=== PATIENT | male | born 1955 | race Caucasian/White ===

== ENCOUNTER 2017-06-29 09:24 | Emergency (ER) | payer OTHER ==
[2017-06-29] MEDS ORDERED: Sodium Chloride 0.9% 2.5 ML Syringe FLUSH PRN (09:31)
[2017-06-29] MEDS ORDERED: Sodium Chloride 0.9% 10 ML Syringe FLUSH PRN (09:31)
--- NOTE | 2017-06-29 09:52 | EDM.PDOC ---
ED HPI GENERAL MEDICAL PROBLEM - General Chief Complaint: Neuro Symptoms/Deficits Stated Complaint: UNABLE TO MOVE LEG Time Seen by Provider: 06/29/17 09:29 - History of Present Illness INITIAL COMMENTS - FREE TEXT/NARRATIVE: HISTORY AND PHYSICAL: History of present illness: Patient is a 62-year-old male who has a history of hypertension for which he does not take medication and presents from work after having a clearly normal morning complaining of pain to his left leg originating from his buttock going down his thigh and weakness and tingling to that same area. He initially presented to triage saying that he was unable to move his leg and when I queried him he says that he does feel weak and tingling in that leg but there is severe pain with any movement of the leg and he feels that he is weak because of the pain. He has no history of back problems or falls and has had no bowel or bladder disturbances. He has no upper extremity complaints and no chest pain shortness of breath headache neck pain or discrete back pain. He says that the discomfort in his leg hurts if he tries to flex at his hips. Patient denies any trauma to his leg. The patient says he does not follow with a family physician. Initially when he presented because of his complaint a stroke code was called and the appropriate workup was ordered. On my evaluation it appears to be more lumbar spine and lower extremity related we will evaluate. When asked the patient why he is not taking the medication he was prescribed for blood pressure management and he says that it cost over $200 and he is not going to pay for that Review of systems: As per history of present illness and below otherwise all systems reviewed and negative. Past medical history: As per history of present illness and as reviewed below otherwise noncontributory. Surgical history: As per history of present illness and as reviewed below otherwise noncontributory. Social history: No reported history of drug or alcohol abuse. Family history: As per history of present illness and as reviewed below otherwise noncontributory. Physical exam: Gen.: Well-developed well-nourished man speaking clearly and easily in the ED and in no distress. His blood pressure on triage was noted at 220/101 HEENT: Atraumatic, normocephalic, pupils reactive, negative for conjunctival pallor or scleral icterus, mucous membranes moist, throat clear, neck supple, nontender, trachea midline. When the patient sticks out his tongue there is a slight deviation to the left but there is no loss of the nasal labial fold and no issues with his smile. He has no cervical adenopathy and no midline step- offs in his defects of the cervical spine Lungs: Clear to auscultation, breath sounds equal bilaterally, chest nontender. Heart: S1S2, regular rate and rhythm no overt murmurs Abdomen: Soft, nondistended, nontender. Negative for masses or hepatosplenomegaly. Negative for costovertebral tenderness. Pelvis: Stable nontender. Genitourinary: Deferred. Rectal: She has normal perianal sensation, push squeeze and tone. Extremities: Atraumatic, negative for cords or calf pain. Neurovascular unremarkable. The patient has no palpable bony deformities throughout the extremities nor any soft tissue swelling more specifically at the left lower extremity. Dorsalis pedis pulse is very strong on the left Neuro: Awake, alert, oriented. Cranial nerves II through XII unremarkable. . Dorsi and plantar flexion is 4/5 bilaterally inclusive of the great toe the patient is able to invert and fever at his feet. He says there is discomfort when he dorsi and plantar flexes in his left foot. The patient exhibits discomfort whenever I try to move his left leg and he is able to lift his leg at the knee albeit with a motor of only 3/5. All other extremities including the left upper extremity has intact motor 5/5. The patient also states that he has decreased simple touch and pressure in the left leg from the thigh down to the foot. It does not include the proximal thigh. Patellar reflexes are brisk +2 /4 laterally Back: There are no midline step-offs tenderness or defects of the thoracic or lumbar spine no posterior pelvis pain. When he sat the patient up to do this exam he said he had severe pain in his left leg. Diagnostics: NIHSS, CT scan of the head and lumbar spine chest x-ray EKG CBC CMP INR troponin TSH [employer]A [employer]: IV O2 monitor labetalol aspirin if CT is negative, Solu-Medrol, Toradol Norflex NIHSS=2, he had some keys issues and weakness in the left leg, on my evaluation that weakness has been improving. As the patient has a very localized symptomatology to the left leg and involves pain and improving stroke scale he is not a candidate for TPA. Sounds more like a lumbar spine issue rather than a central brain issue. Patient is now able to lift his left leg at the hip and the knee and still says that there is pain there but it is improved after the Toradol. I discussed with him and his at bedside all testing results--- occluding the CT scan of the lumbar spine which indicated mild to moderate osteophytes throughout the lumbar spine and a small diffuse disc bulge at L4-L5 resulting in mild spinal canal stenosis--- and my concerns about his blood pressure. He currently denies any headache neck pain and blurred vision chest pain or shortness of breath and only complains of the pain in his left thigh. We will get him an expedited follow-up appointment in the clinic and I will discuss with either that physician or the hospitalist starting blood pressure medication and I will also give him Norflex or home, tramadol as needed, prednisone taper and recommended that he buy a walker just for stability until the pain improves. Patient states that he would like a cane and we will see if we have one here to dispense. I did discuss and offer admission to this patient and he absolutely defers at this time. Blood pressure management was discussed with our hospitalist Dr. Vance and 1150 and he recommends lisinopril 10 mg by mouth daily and hydrochlorothiazide 12.5 mg every day. Impression: Left leg pain, small herniated disc at L4-L5, hypertension not controlled/ noncompliant Definitive disposition and diagnosis as appropriate pending reevaluation and review of above. - Related Data Allergies Allergy/AdvReac Type Severity Reaction Status Date / Time amoxicillin Allergy Cannot Verified 06/29/17 11:18 Remember coconut oil Allergy Cannot Verified 06/29/17 11:18 Remember Home Meds: Home Meds . [No Known Home Meds] 06/29/17 [History] ED ROS GENERAL - Review of Systems Review Of Systems: ROS reveals no pertinent complaints other than HPI. ED EXAM, GENERAL - Physical Exam Exam: See Below (See dictation) Course - Vital Signs Last Recorded V/S: Last Vital Signs Temp 36.4 C 06/29/17 09:25 Pulse 65 06/29/17 11:17 Resp 18 06/29/17 11:17 BP 220/104 H 06/29/17 11:17 Pulse Ox 98 06/29/17 11:17 - Orders/Labs/Meds Orders: Active Orders 24 hr Category Date Time Status Blood Glucose Check, Bedside [RC] ONETIME Care 06/29/17 09:31 Active Cardiac Monitoring [RC] . DIRECTED Care 06/29/17 09:31 Active EKG Documentation Completion [RC] STAT Care 06/29/17 09:31 Active Oxygen Therapy, ED [RC] ASDIRECTED Care 06/29/17 09:31 Active Pulse Oximetry [RC] ASDIRECTED Care 06/29/17 09:31 Active Sodium Chloride 0.9% [Saline Flush] Med 06/29/17 09:31 Active 10 ml FLUSH ASDIRECTED PRN Sodium Chloride 0.9% [Saline Flush] Med 06/29/17 09:31 Active 2.5 ml FLUSH ASDIRECTED PRN Saline Lock Insert [OM.PC] Stat Oth 06/29/17 09:31 Ordered Medication Orders Sodium Chloride (Saline Flush) 10 ml FLUSH ASDIRECTED PRN PRN Reason: Keep Vein Open Sodium Chloride (Saline Flush) 2.5 ml FLUSH ASDIRECTED PRN PRN Reason: Keep Vein Open Labs: Laboratory Tests 06/29/17 06/29/17 06/29/17 Range/Units 09:52 09:52 09:52 WBC 8.56 (4.0-11.0) K/uL RBC 4.82 (4.50-5.90) M/uL Hgb 14.7 (13.0-17.0) g/dL Hct 42.6 (38.0-50.0) % MCV 88.4 (80.0-98.0) fL MCH 30.5 (27.0-32.0) pg MCHC 34.5 (31.0-37.0) g/dL RDW Std Deviation 45.4 (28.0-62.0) fl RDW Coeff of [place]ub[place] 14 (11.0-15.0) % Plt Count 197 (150-400) K/uL MPV 10.10 (7.40-12.00) fL Neut % (Auto) 56.9 (48.0-80.0) % Lymph % (Auto) 27.0 (16.0-40.0) % [place] % (Auto) 10.9 (0.0-15.0) % Eos % (Auto) 4.6 (0.0-7.0) % Baso % (Auto) 0.6 (0.0-1.5) % Neut # (Auto) 4.9 (1.4-5.7) K/uL Lymph # (Auto) 2.3 (0.6-2.4) K/uL [place] # (Auto) 0.9 H (0.0-0.8) K/uL Eos # (Auto) 0.4 (0.0-0.7) K/uL Baso # (Auto) 0.1 (0.0-0.1) K/uL Nucleated RBC % 0.0 /100WBC Nucleated RBCs # 0 K/uL INR 1.00 (0.86-1.11) Sodium 139 (136-146) mmol/L Potassium 4.2 (3.5-5.1) mmol/L Chloride 107 (98-110) mmol/L Carbon Dioxide 24 (21-31) mmol/L BUN 24 H (6.0-23.0) mg/dL Creatinine 1.3 (0.6-1.5) mg/dL Est Cr Clr Drug Dosing 66.32 mL/min Estimated GFR (MDRD) 56.3 ml/min Glucose 105 (60-110) mg/dL Calcium 9.7 (8.8-10.8) mg/dL Total Bilirubin 0.4 (0.1-1.5) mg/dL AST 19 (5-40) IU/L ALT 27 (8-54) IU/L Alkaline Phosphatase 117 (40-150) Troponin I (0.0-0.29) NG/ML Total Protein 7.2 (6.0-8.0) g/dL Albumin 3.9 (3.4-4.8) g/dL Globulin 3.3 (2.0-3.5) g/dL Albumin/Globulin Ratio 1.2 L (1.3-2.8) TSH 3rd Generation 2.74 (0.47-5.0) uIU/mL Urine Color Urine Appearance Urine pH (5.0-8.0) Ur Specific [place] (1.001-1.035) Urine Protein (NEGATIVE) mg/dL Urine Glucose (UA) (NEGATIVE) mg/dL Urine Ketones (NEGATIVE) mg/dL Urine Occult Blood (NEGATIVE) Urine Nitrite (NEGATIVE) Urine Bilirubin (NEGATIVE) Urine Urobilinogen (<2.0) EU/dL Ur Leukocyte Esterase (NEGATIVE) Urine RBC (0-2/HPF) Urine WBC (0-5/HPF) Ur Epithelial Cells (NONE-FEW) Urine Bacteria (NEGATIVE) Urine Mucus (NONE-MOD) 06/29/17 06/29/17 Range/Units 09:52 11:15 WBC (4.0-11.0) K/uL RBC (4.50-5.90) M/uL Hgb (13.0-17.0) g/dL Hct (38.0-50.0) % MCV (80.0-98.0) fL MCH (27.0-32.0) pg MCHC (31.0-37.0) g/dL RDW Std Deviation (28.0-62.0) fl RDW Coeff of Nubia (11.0-15.0) % Plt Count (150-400) K/uL MPV (7.40-12.00) fL Neut % (Auto) (48.0-80.0) % Lymph % (Auto) (16.0-40.0) % [place] % (Auto) (0.0-15.0) % Eos % (Auto) (0.0-7.0) % Baso % (Auto) (0.0-1.5) % Neut # (Auto) (1.4-5.7) K/uL Lymph # (Auto) (0.6-2.4) K/uL [place] # (Auto) (0.0-0.8) K/uL Eos # (Auto) (0.0-0.7) K/uL Baso # (Auto) (0.0-0.1) K/uL Nucleated RBC % /100WBC Nucleated RBCs # K/uL INR (0.86-1.11) Sodium (136-146) mmol/L Potassium (3.5-5.1) mmol/L Chloride (98-110) mmol/L Carbon Dioxide (21-31) mmol/L BUN (6.0-23.0) mg/dL Creatinine (0.6-1.5) mg/dL Est Cr Clr Drug Dosing mL/min Estimated GFR (MDRD) ml/min Glucose (60-110) mg/dL Calcium (8.8-10.8) mg/dL Total Bilirubin (0.1-1.5) mg/dL AST (5-40) IU/L ALT (8-54) IU/L Alkaline Phosphatase (40-150) Troponin I < 0.10 (0.0-0.29) NG/ML Total Protein (6.0-8.0) g/dL Albumin (3.4-4.8) g/dL Globulin (2.0-3.5) g/dL Albumin/Globulin Ratio (1.3-2.8) TSH 3rd Generation (0.47-5.0) uIU/mL Urine Color YELLOW Urine Appearance CLEAR Urine pH 5.5 (5.0-8.0) Ur Specific [place] 1.010 (1.001-1.035) Urine Protein NEGATIVE (NEGATIVE) mg/dL Urine Glucose (UA) NEGATIVE (NEGATIVE) mg/dL Urine Ketones NEGATIVE (NEGATIVE) mg/dL Urine Occult Blood NEGATIVE (NEGATIVE) Urine Nitrite NEGATIVE (NEGATIVE) Urine Bilirubin NEGATIVE (NEGATIVE) Urine Urobilinogen 0.2 (<2.0) EU/dL Ur Leukocyte Esterase NEGATIVE (NEGATIVE) Urine RBC NONE SEEN (0-2/HPF) Urine WBC 0-1 (0-5/HPF) Ur Epithelial Cells RARE (NONE-FEW) Urine Bacteria RARE (NEGATIVE) Urine Mucus LIGHT (NONE-MOD) Meds: Medications Generic Name Dose Route Start Last Admin Trade Name Brenda PRN Reason Stop Dose Admin Sodium Chloride 10 ml 06/29/17 09:31 Saline Flush FLUSH ASDIRECTED PRN Keep Vein Open Sodium Chloride 2.5 ml 06/29/17 09:31 Saline Flush FLUSH ASDIRECTED PRN Keep Vein Open Discontinued Medications Generic Name Dose Route Start Last Admin Trade Name Freq PRN Reason Stop Dose Admin Hydrocodone Bitart/Acetaminophen 1 tab 06/29/17 11:40 [place] 325-7.5 Mg PO 06/29/17 11:41 ONETIME ONE Ketorolac Tromethamine 30 mg 06/29/17 09:58 06/29/17 10:07 Toradol IVPUSH 06/29/17 09:59 30 mg ONETIME ONE Administration Labetalol HCl 20 mg 06/29/17 09:55 Normodyne IVPUSH 06/29/17 09:56 .BOLUS ONE Protocol Labetalol HCl Confirm 06/29/17 10:00 06/29/17 10:27 Normodyne Administered 06/29/17 10:01 Not Given Dose 100 mg .ROUTE .STK-MED ONE Methylprednisolone Sodium Succinate 125 mg 06/29/17 09:58 06/29/17 10:07 Solu-Medrol IVPUSH 06/29/17 09:59 125 mg ONETIME ONE Administration Orphenadrine Citrate 60 mg 06/29/17 11:41 06/29/17 11:47 Norflex IM 06/29/17 11:42 60 mg ONETIME ONE Administration Departure - Departure Time of Disposition: 11:53 Disposition: Home, Self-Care 01 Condition: Good Clinical Impression: Lumbar disc disease, Left leg pain Hypertension Qualifiers: Hypertension type: unspecified secondary hypertension Qualified Code(s): I15.9 - Secondary hypertension, unspecified; I15 - Secondary hypertension - Discharge Information Referrals: PCP,None [Primary Care Provider] - Forms: ED Department Discharge Additional Instructions: The following information is given to patients seen in the emergency department who are being discharged to home. This information is to outline your options for follow-up care. We provide all patients seen in our emergency department with a follow-up referral. The need for follow-up, as well as the timing and circumstances, are variable depending upon the specifics of your emergency department visit. If you don't have a primary care physician on staff, we will provide you with a referral. We always advise you to contact your personal physician following an emergency department visit to inform them of the circumstance of the visit and for follow-up with them and/or the need for any referrals to a consulting specialist. The emergency department will also refer you to a specialist when appropriate. This referral assures that you have the opportunity for followup care with a specialist. All of these measure are taken in an effort to provide you with optimal care, which includes your followup. Under all circumstances we always encourage you to contact your private physician who remains a resource for coordinating your care. When calling for followup care, please make the office aware that this follow-up is from your recent emergency room visit. If for any reason you are refused follow-up, please contact the [facility] emergency department at and ask to speak to the emergency department charge nurse. [facility] Primary care- Internal Medicine and Family [address] [address] Please take all medications as prescribed, your blood pressure medication, the prednisone and use the pain medication as needed. Please also use the muscle relaxer as needed but do not take the muscle relaxer or the pain medication and drive a car or go to work. Please keep your appointment is scheduled from the ER below and return to ER as needed and as discussed. - My Orders Last 24 Hours: My Active Orders 06/29/17 09:31 Blood Glucose Check, Bedside [RC] ONETIME Cardiac Monitoring [RC] . DIRECTED EKG Documentation Completion [RC] STAT Oxygen Therapy, ED [RC] ASDIRECTED Pulse Oximetry [RC] ASDIRECTED Sodium Chloride 0.9% [Saline Flush] 10 ml FLUSH ASDIRECTED PRN Sodium Chloride 0.9% [Saline Flush] 2.5 ml FLUSH ASDIRECTED PRN Saline Lock Insert [OM.PC] Stat - Assessment/Plan Last 24 Hours: My Active Orders 06/29/17 09:31 Blood Glucose Check, Bedside [RC] ONETIME Cardiac Monitoring [RC] . DIRECTED EKG Documentation Completion [RC] STAT Oxygen Therapy, ED [RC] ASDIRECTED Pulse Oximetry [RC] ASDIRECTED Sodium Chloride 0.9% [Saline Flush] 10 ml FLUSH ASDIRECTED PRN Sodium Chloride 0.9% [Saline Flush] 2.5 ml FLUSH ASDIRECTED PRN Saline Lock Insert [OM.PC] Stat
[2017-06-29] MEDS ORDERED: Labetalol 5 MG/ML 5 ML Syringe IVPUSH ONE (09:55)
[2017-06-29] MEDS ORDERED: Ketorolac 30 MG/ML SDV IVPUSH ONE (09:58)
[2017-06-29] MEDS ORDERED: methylPREDNISolone Sodium Succinate 125 MG/2 ML SDV IVPUSH ONE (09:58)
--- NOTE | 2017-06-29 09:58 | CT ---
EXAMINATION: Non contrast CT head. Coronal and sagittal reformats. HISTORY: Pain FINDINGS: No evidence of intra or extra axial hemorrhage, mass, midline shift, hydrocephalus or edema. There i s encephalomalacia within the right frontal lobe anteriorly. No hypoattenuation changes in the major vascular territories to suggest acute infarct. No abnormal intracranial calcifications are detected. Mild vascular calcifications noted. Paranasal sinuses and mastoid air cells are well aerated without substantial findings. The orbits an d globes appear symmetric. Pituitary fossa appears unremarkable. Calvarium is intact. No evidence of skull fracture. IMPRESSION: 1. No acute intracranial findings. 2. 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 The above findings were called to the ER at 9:55 AM.
[2017-06-29] MEDS ORDERED: Labetalol 100 MG/20 ML MDV ONE (10:00)
--- NOTE | 2017-06-29 11:18 | CT ---
EXAMINATION: CT lumbar spine HISTORY: Pain COMPARISON: None TECHNIQUE: Axial CT images obtained through the lumbar spine without contrast. Coronal and sagittal r econstructions obtained. FINDINGS: The lumbar spinal alignment is normal. The vertebral body heights and disc spaces appear gr ossly maintained. Mild to moderate marginal osteophytes are noted throughout the lumbar spine. There is likely a small diffuse disc bulge at L4-L5 resulting in mild spinal canal stenosis. Otherwise no s ignificant osseous spinal canal stenosis. Bridging osteophytes are noted within the right SI joint. B one mineralization is normal. Facet hypertrophy is noted within the lumbar spine most prominent at L5 -S1. There is moderate right perirenal stranding. IMPRESSION: 1. Moderate degenerative changes noted within the lumbar spine without acute findings. 2. Moderate right perirenal stranding. Correlate with focal pain.
--- NOTE | 2017-06-29 11:25 | CR ---
EXAMINATION: Portable chest radiograph. HISTORY: Shortness of breath. FINDINGS: The trachea is midline. The cardiomediastinal silhouette is within normal limits. No pulmonary infilt rates, effusions or pneumothorax. Osseous structures appear unremarkable. IMPRESSION: No acute cardiopulmonary process.
[2017-06-29] MEDS ORDERED: Acetaminophen/HYDROcodone 325-7.5 MG Tab PO ONE (11:40)
[2017-06-29 14:36] VITALS: BP 214/100
== END 2017-06-29 12:20 | disposition home or self-care (01) ==
LOC: MW.ED 09:24
DX: M51.26 Other intervertebral disc displacement, lumbar region (principal); M79.605 Pain in left leg; I15.9 Secondary hypertension, unspecified; Z88.1 Allergy status to other antibiotic agents
CPT/HCPCS: 36415; 70450; 71010; 72131; 80053; 81001; 84443; 84484; 85025; 85610; 93005; 96372; 96374; 96375; 99285; J1885; J2360; J2930; 99283

== ENCOUNTER 2017-08-17 05:21 | Observation (INO) | payer MEDICAID, OTHER ==
[2017-08-17] MEDS ORDERED: Labetalol 5 MG/ML 5 ML Syringe IVPUSH ONE (05:38)
--- NOTE | 2017-08-17 05:40 | EDM.PDOC ---
ED HPI GENERAL MEDICAL PROBLEM - General Chief Complaint: Neuro Symptoms/Deficits Stated Complaint: POSSIBLE STROKE Time Seen by Provider: 08/17/17 05:34 - History of Present Illness INITIAL COMMENTS - FREE TEXT/NARRATIVE: HISTORY AND PHYSICAL: History of present illness: Patient 62-year-old white male history of hypertension presents with a concern of paresthesia to his left face and left upper extremity he states he noticed some numbness to his left face and left arm approximately 20 minutes prior to arrival he denies any weakness denies any difficulty with speech upon arrival he states the left arm numbness is nearly resolved he still is some slight numbness in his left face. He denies chest pain shortness of breath trauma or other concern Review of systems: As per history of present illness and below otherwise all systems reviewed and negative. Past medical history: As per history of present illness and as reviewed below otherwise noncontributory. Surgical history: As per history of present illness and as reviewed below otherwise noncontributory. Social history: No reported history of drug or alcohol abuse. Family history: As per history of present illness and as reviewed below otherwise noncontributory. Physical exam: HEENT: Atraumatic, normocephalic, pupils reactive, negative for conjunctival pallor or scleral icterus, mucous membranes moist, throat clear, neck supple, nontender, trachea midline. Lungs: Clear to auscultation, breath sounds equal bilaterally, chest nontender. Heart: S1S2, regular, negative for clicks, rubs, or JVD. Abdomen: Soft, nondistended, nontender. Negative for masses or hepatosplenomegaly. Negative for costovertebral tenderness. Pelvis: Stable nontender. Genitourinary: Deferred. Rectal: Deferred. Extremities: Atraumatic, negative for cords or calf pain. Neurovascular unremarkable. Neuro: Awake, alert, oriented. Cranial nerves II through XII unremarkable. Cerebellum unremarkable. Patient is noted to have some decreased sensation to light touch to his left face Diagnostics: CBC CMP PT/INR chest x-ray EKG CT brain Therapeutics: IV O2 monitor labetalol 20 mg IV Impression: #1 paresthesia left face #2 hypertension Definitive disposition and diagnosis as appropriate pending reevaluation and review of above. - Related Data Allergies Allergy/AdvReac Type Severity Reaction Status Date / Time amoxicillin Allergy Hives Verified 08/17/17 05:33 coconut oil Allergy Cannot Verified 08/17/17 05:33 Remember Home Meds: Home Meds . [No Known Home Meds] 06/29/17 [History] Past Medical History Cardiovascular History: Reports: Hypertension, DC Other Cardiovascular History: DC 2013 Respiratory History: Reports: Other (See Below) Other Respiratory History: chronic smoker Social & Family History - Family History Family Medical History: Noncontributory - Tobacco Use Smoking Status *Q: Current Every Day Smoker Years of Tobacco use: 30 Packs/Tins Daily: 1 - Caffeine Use Caffeine Use: Reports: Coffee - Recreational Drug Use Recreational Drug Use: No ED ROS GENERAL - Review of Systems Review Of Systems: ROS reveals no pertinent complaints other than HPI. ED EXAM, GENERAL - Physical Exam Exam: See Below (See dictation) Course - Vital Signs Last Recorded V/S: Last Vital Signs Temp 36.3 C 08/17/17 05:25 Pulse 64 08/17/17 06:30 Resp 16 08/17/17 06:30 BP 188/111 H 08/17/17 06:30 Pulse Ox 96 08/17/17 06:30 - Orders/Labs/Meds Orders: Active Orders 24 hr Category Date Time Status Patient Status [ADT] Stat ADT 08/17/17 06:41 Ordered EKG Documentation Completion [RC] STAT Care 08/17/17 05:43 Active Chest 1V Frontal [CR] Stat Exams 08/17/17 05:43 Taken Head wo Cont [CT] Stat Exams 08/17/17 05:45 Taken Labs: Laboratory Tests 08/17/17 08/17/17 08/17/17 Range/Units 05:51 05:51 05:51 WBC 8.94 (4.0-11.0) K/uL RBC 4.96 (4.50-5.90) M/uL Hgb 15.3 (13.0-17.0) g/dL Hct 44.3 (38.0-50.0) % MCV 89.3 (80.0-98.0) fL MCH 30.8 (27.0-32.0) pg MCHC 34.5 (31.0-37.0) g/dL RDW Std Deviation 44.5 (28.0-62.0) fl RDW Coeff of Nubia 14 (11.0-15.0) % Plt Count 194 (150-400) K/uL MPV 10.60 (7.40-12.00) fL Neut % (Auto) 59.6 (48.0-80.0) % Lymph % (Auto) 26.2 (16.0-40.0) % [place] % (Auto) 7.5 (0.0-15.0) % Eos % (Auto) 5.6 (0.0-7.0) % Baso % (Auto) 1.1 (0.0-1.5) % Neut # (Auto) 5.3 (1.4-5.7) K/uL Lymph # (Auto) 2.3 (0.6-2.4) K/uL [place] # (Auto) 0.7 (0.0-0.8) K/uL Eos # (Auto) 0.5 (0.0-0.7) K/uL Baso # (Auto) 0.1 (0.0-0.1) K/uL Nucleated RBC % 0.0 /100WBC Nucleated RBCs # 0 K/uL INR 1.03 (0.86-1.11) Sodium 141 (136-146) mmol/L Potassium 4.0 (3.5-5.1) mmol/L Chloride 107 (98-110) mmol/L Carbon Dioxide 25 (21-31) mmol/L BUN 21 (6.0-23.0) mg/dL Creatinine 1.2 (0.6-1.5) mg/dL Est Cr Clr Drug Dosing TNP Estimated GFR (MDRD) > 60.0 ml/min Glucose 120 H (60-110) mg/dL Calcium 9.4 (8.8-10.8) mg/dL Total Bilirubin 0.5 (0.1-1.5) mg/dL AST 18 (5-40) IU/L ALT 28 (8-54) IU/L Alkaline Phosphatase 103 (40-150) CK-MB (CK-2) 1.1 (0-6.6) ng/ml Troponin I < 0.10 (0.0-0.29) NG/ML Total Protein 7.0 (6.0-8.0) g/dL Albumin 3.8 (3.4-4.8) g/dL Globulin 3.2 (2.0-3.5) g/dL Albumin/Globulin Ratio 1.2 L (1.3-2.8) Meds: Medications Discontinued Medications Generic Name Dose Route Start Last Admin Trade Name Brenda PRN Reason Stop Dose Admin Labetalol HCl 20 mg 08/17/17 05:38 08/17/17 05:45 Normodyne IVPUSH 08/17/17 05:39 20 mg .BOLUS ONE Administration Protocol Labetalol HCl Confirm 08/17/17 05:45 08/17/17 06:13 Normodyne Administered 08/17/17 05:46 Not Given Dose 100 mg .ROUTE .STK-MED ONE Departure - Departure Time of Disposition: 06:43 Disposition: Admitted As Inpatient 68 Condition: Good Clinical Impression: TIA (transient ischemic attack) Hypertension Qualifiers: Hypertension type: unspecified secondary hypertension Qualified Code(s): I15.9 - Secondary hypertension, unspecified - Discharge Information Referrals: PCP,None [Primary Care Provider] - Forms: ED Department Discharge - My Orders Last 24 Hours: My Active Orders 08/17/17 05:43 EKG Documentation Completion [RC] STAT Chest 1V Frontal [CR] Stat 08/17/17 05:45 Head wo Cont [CT] Stat 08/17/17 06:41 Patient Status [ADT] Stat - Assessment/Plan Last 24 Hours: My Active Orders 08/17/17 05:43 EKG Documentation Completion [RC] STAT Chest 1V Frontal [CR] Stat 08/17/17 05:45 Head wo Cont [CT] Stat 08/17/17 06:41 Patient Status [ADT] Stat
[2017-08-17] MEDS ORDERED: Labetalol 100 MG/20 ML MDV ONE (05:45)
[2017-08-17 06:21] LABS: CHLORIDE,CL 107 mmol/L (98-110); SODIUM,NA 141 mmol/L (136-146)
[2017-08-17] MEDS ORDERED: Enoxaparin 40 MG/0.4 ML Syringe SUBCUT SCH (09:15)
[2017-08-17] MEDS ORDERED: atorvaSTATin 40 MG Tab PO SCH (10:15)
[2017-08-17] MEDS ORDERED: Aspirin 325 MG Tab.EC PO SCH (10:15)
[2017-08-17 12:56] VITALS: BP 202/93
--- NOTE | 2017-08-17 14:15 | PCM.HP ---
H&P History of Present Illness - General Date of Service: 08/17/17 Admit Problem/Dx: Admission Diagnosis/Problem Admission Diagnosis/Problem TIA, Transient ischemic attack Source of Information: Patient, Family History Limitations: Reports: No Limitations - History of Present Illness Initial Comments - Free Text/Narative: 8-year-old male with a history of hypertension, previous myocardial infarction that presented to the emergency department earlier this morning with a chief complaint of facial numbness. As per the patient, he experienced numbness and tingling on the left side of his face and reported slurred speech from his earlier this morning around 5 AM while they're in their car. As this is concerning, this patient then came to the emergency department. Patient was found to have a elevated blood pressure and paresthesias on the left side of his face as well and was considered to have a TIA and was admitted for further workup. At that time, CT of the brain was ordered which was unremarkable. Talking to the patient this morning, he continued to complain of left-sided numbness without any extremity involvement. He denied any numbness tingling or pain elsewhere in his body. He denied any head trauma. - Related Data Allergies/Adverse Reactions: Allergies Allergy/AdvReac Type Severity Reaction Status Date / Time amoxicillin Allergy Hives Verified 08/17/17 05:33 coconut oil Allergy Cannot Verified 08/17/17 05:33 Remember Home Medications: Home Meds . [No Known Home Meds] 06/29/17 [History] Past Medical History - Past Health History Medical/Surgical History: Denies Medical/Surgical History Cardiovascular History: Reports: Hypertension, CO Other Cardiovascular History: CO 2013 Respiratory History: Reports: Other (See Below) Other Respiratory History: chronic smoker - Infectious Disease History Infectious Disease History: Reports: Chicken Pox, Measles, Mumps Social & Family History - Family History Family Medical History: Noncontributory - Tobacco Use Smoking Status *Q: Current Every Day Smoker Years of Tobacco use: 30 Packs/Tins Daily: 0.5 Second Hand Smoke Exposure: No - Caffeine Use Caffeine Use: Reports: Coffee Caffeine Use Comment: 3 cups daily - Recreational Drug Use Recreational Drug Use: No H&P Review of Systems - Review of Systems: Review Of Systems: See Below General: Reports: Weakness HEENT: Denies: Vertigo, Visual Changes Pulmonary: Denies: Shortness of Breath, Wheezing, Cough Cardiovascular: Denies: Chest Pain, Palpitations Gastrointestinal: Denies: Abdominal Pain Genitourinary: Denies: Dysuria, Incontinence Musculoskeletal: Denies: Neck Pain, Shoulder Pain, Arm Pain Skin: Reports: No Symptoms Neurological: Reports: Other (See history of present illness) Hematologic/Lymphatic: Reports: No Symptoms Immunologic: Reports: No Symptoms Exam - Exam Exam: See Below - Vital Signs Vital Signs: Last Vital Signs Temp 36.6 C 08/17/17 12:00 Pulse 68 08/17/17 12:00 Resp 16 08/17/17 12:00 BP 202/93 H 08/17/17 12:00 Pulse Ox 96 08/17/17 12:00 Weight: 81.8 kg - Exam Quality Assessment: No: Supplemental Oxygen General: Alert, Oriented, Cooperative HEENT: Conjunctiva Clear, EOMI Neck: Supple, Trachea Midline. No: Carotid Bruit, JVD Lungs: Clear to Auscultation, Normal Respiratory Effort Cardiovascular: Regular Rate, Regular Rhythm GI/Abdominal Exam: Normal Bowel Sounds, Soft, Non-Tender Back Exam: Normal Inspection, Full Range of Motion Extremities: Normal Inspection, Normal Capillary Refill Skin: Warm, Intact Neurological: Other (Decreased sensation to touch over the left cheek. Possible deviation of protruding tongue to the left side. Rest of the cranial nerves appear to be unremarkable. Strength in all 4 extremities appears to be 5 out of 5 for flexion and extension against resistance. Traffic Police Officer strength is also 5 out of 5.) Psychiatric: Alert, Normal Mood - Patient Data Result Diagrams: 08/17/17 05:51 08/17/17 05:51 *Q Meaningful Use (ADM) - VTE *Q VTE Criteria *Q: - Stroke *Q Stroke Criteria *Q: - AMI *Q AMI Criteria *Q: Problem List Initiated/Reviewed/Updated: Yes Orders Last 24hrs: Active Orders 24 hr Category Date Time Status Patient Status [ADT] Routine ADT 08/17/17 06:41 Active Neuro Check [RC] Q4HR Care 08/17/17 08:00 Active Notify Provider Consults [RC] ASDIRECTED Care 08/17/17 11:42 Active Oxygen Therapy [RC] PRN Care 08/17/17 09:08 Active Swallow Screen [Nursing Bedside Swallow Screen] [RC] Care 08/17/17 10:03 Active ASDIRECTED Telemetry Monitoring [Cardiac Monitoring] [RC] . Care 08/17/17 11:41 Active DIRECTED Up With Assistance [RC] ASDIRECTED Care 08/17/17 09:09 Active VTE/DVT Education [RC] PER UNIT ROUTINE Care 08/17/17 09:08 Active VTE/DVT Education [RC] PER UNIT ROUTINE Care 08/17/17 09:09 Active Vital Signs [RC] Q4H Care 08/17/17 09:08 Active Consult to Physician [CONS] Routine Cons 08/17/17 11:41 Active PT Evaluation and Treatment [CONS] Routine Cons 08/17/17 09:09 Active Regular Diet [DIET] Diet 08/17/17 Lunch Active Ang Head w wo Cont [MR] Routine Exams 08/17/17 09:59 Ordered Ang Neck w wo Cont [MR] Routine Exams 08/17/17 09:59 Ordered Brain w wo Cont [MR] Routine Exams 08/17/17 09:59 Ordered Echo Comp wo Cont [US] Urgent Exams 08/17/17 10:02 Ordered BASIC METABOLIC PANEL,BMP [CHEM] AM Lab 08/18/17 05:11 Ordered CBC W/O DIFF,HEMOGRAM [HEME] AM Lab 08/18/17 05:11 Ordered Aspirin [Ecotrin] Med 08/17/17 10:15 Active 325 mg PO DAILY Enoxaparin [Lovenox] Med 08/17/17 09:15 Active 40 mg SUBCUT DAILY atorvaSTATin [Lipitor] Med 08/17/17 10:15 Active 80 mg PO DAILY Resuscitation Status Routine Resus Stat 08/17/17 09:08 Ordered Medication Orders Aspirin (Ecotrin) 325 mg PO DAILY [facility] Last Admin: 08/17/17 11:40 Dose: 325 mg Atorvastatin Calcium (Lipitor) 80 mg PO DAILY [facility] Last Admin: 08/17/17 11:40 Dose: 80 mg Enoxaparin Sodium (Lovenox) 40 mg SUBCUT DAILY [facility] Last Admin: 08/17/17 09:37 Dose: 40 mg Assessment/Plan Comment:: Assessment #1. New onset numbness and tingling over the left side of the face #2. Slurred speech that has resolved #3. Hypertension #4. History of myocardial infarction Plan #1. Admit to the regular floor #2. Vital signs per floor routine. Neuro checks every 4 hours. Allow permissive hypertension. When necessary labetalol for blood pressures exceeding 220/120 #3. Full dose aspirin #4. 80 mg of Crestor atorvastatin #5. Echocardiogram #6. MRI with and without contrast of the brain #7. MRA of the head and neck #8. Neurology was consulted. The neurologist states that she will come by tomorrow morning. Agrees with the plan as stated. #9. Hemoglobin A1c #10. Lipid panel
[2017-08-17] MEDS ORDERED: Labetalol 100 MG/20 ML MDV IVPUSH PRN (14:19)
[2017-08-17] MEDS ORDERED: Gadobenate Dimeglumine 529 MG/ML 20 ML SDV IVPUSH STA (14:21)
--- NOTE | 2017-08-17 16:32 | CT ---
EXAM DATE: 08/17/17 PATIENT'S AGE: 62 Patient: LANA BAÑUELOS Facility: [facility], [place], [place] : 1955 Study: CT Head STROKE PROTOCOL [id number] 5:48:42 AM Ordering Physician: JC Final Report: INDICATION: Weakness TECHNIQUE: CT head without contrast. COMPARISON: June 29, 2017. FINDINGS: CSF spaces: Within normal limits for age. Brain parenchyma: Stable right frontal encephalomalacia. The marin-white differentiation is normal. No sign of mass, hemorrhage, or midline shift. Skull base and calvarium: The visualized paranasal sinuses and mastoid air cells demonstrate no acute or significant findings. The visualized orbits are grossly unremarkable. No skull fractures. IMPRESSION: No acute intracranial abnormality. Please note that all CT scans at this facility use dose modulation, iterative reconstruction, and/or weight-based dosing when appropriate to reduce radiation dose to as low as reasonably achievable. Dictated by Shefali Maloney MD @ Aug 17 2017 5:51AM (Electronic Signature) Report S[facility] by Proxy. [facility]
--- NOTE | 2017-08-17 16:33 | CR ---
EXAM DATE: 08/17/17 PATIENT'S AGE: 62 Patient: LANA ESTRADA Facility: [place], [place] : 1955 Study: XRay Chest [id number] 6:08:16 AM Ordering Physician: JC Final Report: INDICATION: Left-sided numbness. Technique: Portable chest. Comparison: Portable chest on 06/29/2017. Findings: Heart and mediastinum are normal in size. Pulmonary vessels are normal. Lungs are clear. No pleural fluid. No acute bony abnormality. Impression: Stable chest with no evidence of acute disease. Dictated by Julian Davis MD @ Aug 17 2017 7:04AM (Electronic Signature) Report Signed by Proxy. VALERIE
[2017-08-17] MEDS ORDERED: Sodium Chloride 0.9% 1,000 ML IV SCH (18:45)
--- NOTE | 2017-08-17 19:01 | PCM.DCSUM1 ---
<Danial Grover - Last Filed: 08/17/17 18:53> Discharge Summary - Hospital Course Free Text/Narrative:: Admission date August 17, 2017 Transfer date August 17, 2017 Admission diagnosis #1 left-sided weakness #2. History of hypertension #3. History of coronary artery disease Diagnosis at the time of transfer #1.Late acute infarcts of both cerebral hemispheres with the largest located in the anterolateral left frontal lobe. 2. Subacute infarct of the anterior superior right frontal lobe. 3. [id number] cerebral and cerebellar atrophy. 4. Mild supratentorial white matter changes that are non-specific, but statistically most likely related to small vessel ischemic disease. #5. 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 #6. Permissive hypertension #7. Left-sided weakness involving sensation to touch over the face, decreased herd tester strength on the left upper extremity, decreased lower left extremity strength Hospital course: 8-year-old male with a past medical history of hypertension, coronary artery disease and myocardial infarction who presented to our emergency department on August 17 in the morning complaining of left-sided [place] weakness. Patient was evaluated in the ER and was admitted for observation and further workup after CT of the head was unremarkable. On admission, this patient physical exam was significant for decreased sensation over the left side of the face on touch. An MRI of the head and neck along with an MRA of the head and neck were also ordered which showed those listed in the transfer diagnosis. Later on the same evening, patient was then reassessed and was found to have decreased herd tester strength in the left upper extremity along with decreased lower extremity left extremity strength for flexion and extension against resistance. The neurologist compensation and benefits advisor was then consulted. The imaging reports were discussed, and given the circumstances, it was indicated that this patient be referred for further higher level of care. At this point of transfer, echocardiogram we did was pending interpretation. As per the neurologist, transesophageal echocardiogram may be indicated which is not available at our facility. I then contacted Dr. Colon, neurology at [facility] and discussed the case who recommended that I transfer this patient to the [place] ER for further workup and then eventual admission to the hospitalist service. He was advised to transfer this patient on IV normal saline. This case was then discussed with Dr. Grimes, accepting physician, who agreed to transfer. The situation was discussed with the patient, who agreed to transfer to [place]. Disposition: Transfer to [facility]. Dr. Grimes, ER, accepting physician. - Discharge Data Discharge Date: 08/17/17 Discharge Disposition: DC/Tfer to Acute Hospital 02 Condition: Fair - Discharge Diagnosis/Problem(s) (1) Ischemic stroke SNOMED Code(s): 513706513 ICD Code: I63.9 - CEREBRAL INFARCTION, UNSPECIFIED Status: Acute Current Visit: Yes - Patient Summary/Data Consults: Consultations 08/17/17 09:09 PT Evaluation and Treatment [CONS] Routine 08/17/17 11:41 Consult to Physician [CONS] Routine - Patient Instructions Diet: Regular Diet as Tolerated - Discharge Plan Home Medications: Home Meds Aspirin [Ecotrin] 325 mg PO DAILY tab.ec 08/17/17 [Rx] atorvaSTATin [Lipitor] 80 mg PO DAILY tablet 08/17/17 [Rx] Forms: ED Department Discharge Referrals: PCP,None [Primary Care Provider] - - Discharge Summary/Plan Comment DC Time >30 min.: No - Patient Data Vitals - Most Recent: Last Vital Signs Temp 36.6 C 08/17/17 12:00 Pulse 68 08/17/17 12:00 Resp 16 08/17/17 12:00 BP 202/93 H 08/17/17 12:00 Pulse Ox 96 08/17/17 12:00 Weight - Most Recent: 81.8 kg Med Orders - Current: Current Medications Aspirin (Ecotrin) 325 mg PO DAILY [facility] Last Admin: 08/17/17 11:40 Dose: 325 mg Atorvastatin Calcium (Lipitor) 80 mg PO DAILY [facility] Last Admin: 08/17/17 11:40 Dose: 80 mg Enoxaparin Sodium (Lovenox) 40 mg SUBCUT DAILY [facility] Last Admin: 08/17/17 09:37 Dose: 40 mg Sodium Chloride (Normal Saline) 1,000 mls @ 125 mls/hr IV ASDIRECTED [facility] Labetalol HCl (Normodyne) 20 mg IVPUSH ONETIME PRN; Protocol PRN Reason: Hypertension Discontinued Medications Gadobenate Dimeglumine (Multihance) 17 ml IVPUSH ONETIME STA Stop: 08/17/17 14:22 Last Admin: 08/17/17 14:22 Dose: 17 ml Labetalol HCl (Normodyne) 20 mg IVPUSH .BOLUS ONE PRN Reason: Protocol Stop: 08/17/17 05:39 Last Admin: 08/17/17 05:45 Dose: 20 mg Labetalol HCl (Normodyne) Confirm Administered Dose 100 mg .ROUTE .STK-MED ONE Stop: 08/17/17 05:46 Last Admin: 08/17/17 06:13 Dose: Not Given *Q Meaningful Use (DIS) - VTE *Q VTE Criteria *Q: - Stroke *Q Stroke Criteria *Q: - AMI *Q AMI Criteria *Q: <Ricky Douglas - Last Filed: 08/17/17 19:26> Discharge Summary - Patient Summary/Data Consults: Consultations 08/17/17 09:09 PT Evaluation and Treatment [CONS] Routine 08/17/17 11:41 Consult to Physician [CONS] Routine - Patient Data Vitals - Most Recent: Last Vital Signs Temp 36.6 C 08/17/17 12:00 Pulse 68 08/17/17 12:00 Resp 16 08/17/17 12:00 BP 202/93 H 08/17/17 12:00 Pulse Ox 96 08/17/17 12:00 I&O - Last 24 hours: Intake & Output 08/17/17 08/17/17 08/17/17 06:59 14:59 22:59 Intake Total 686 Balance 686 Med Orders - Current: Current Medications Aspirin (Ecotrin) 325 mg PO DAILY [facility] Last Admin: 08/17/17 11:40 Dose: 325 mg Atorvastatin Calcium (Lipitor) 80 mg PO DAILY [facility] Last Admin: 08/17/17 11:40 Dose: 80 mg Enoxaparin Sodium (Lovenox) 40 mg SUBCUT DAILY [facility] Last Admin: 08/17/17 09:37 Dose: 40 mg Sodium Chloride (Normal Saline) 1,000 mls @ 125 mls/hr IV ASDIRECTED [facility] Labetalol HCl (Normodyne) 20 mg IVPUSH ONETIME PRN; Protocol PRN Reason: Hypertension Discontinued Medications Gadobenate Dimeglumine (Multihance) 17 ml IVPUSH ONETIME STA Stop: 08/17/17 14:22 Last Admin: 08/17/17 14:22 Dose: 17 ml Labetalol HCl (Normodyne) 20 mg IVPUSH .BOLUS ONE PRN Reason: Protocol Stop: 08/17/17 05:39 Last Admin: 08/17/17 05:45 Dose: 20 mg Labetalol HCl (Normodyne) Confirm Administered Dose 100 mg .ROUTE .STK-MED ONE Stop: 08/17/17 05:46 Last Admin: 08/17/17 06:13 Dose: Not Given *Q Meaningful Use (DIS) - VTE *Q VTE Criteria *Q: - Stroke *Q Stroke Criteria *Q: - AMI *Q AMI Criteria *Q: - Free Text/Narrative Note: I have discussed findings and treatment plan with resident. I agree with the assessment and plan outlined in the following resident's note.
--- NOTE | 2017-08-18 11:40 | MR ---
EXAM DATE: 08/17/17 PATIENT'S AGE: 62 Patient: LANA BAÑUELOS Facility: [place], [place] Site . Site : 1955 Study: MRI Head Angio [id number]/2017 5:07:21 PM Ordering Physician: Misael García Final Report: INDICATION: L sided facial numbness INDICATION: Left-sided facial numbness TECHNIQUE: TOF MRA of COW with 3D MIP provided. No comparisons. 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 Mild irregularity of the P1 segments and left M1 segment compatible underlying atherosclerotic disease. Patent anterior communicating artery. The remainder of the visualized first and second order intracranial vessels are unremarkable. Specifically, no suspicious narrowing or aneurysmal dilatation. IMPRESSION: 1. 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 2. Mild atherosclerotic disease of the P1 and left M1 segments. Dictated by Nick Seay MD @ 08/17/2017 5:58:05 PM Dictated by: Nick Seay MD @ 08/17/2017 17:58:12 (Electronic Signature) Report Signed by Proxy. [facility]
--- NOTE | 2017-08-18 11:59 | MR ---
EXAM DATE: 08/17/17 PATIENT'S AGE: 62 Patient: LANA BAÑUELOS Facility: [place], [place] Site . Site : 1955 Study: MRI Extremity Angio [id number]/2/2017 5:08:01 PM Ordering Physician: Misael García Final Report: INDICATION: Left-sided facial numbness TECHNIQUE: TOF and Marcos bolus MRA of the neck with 3D MIP reconstructions provided. All measurements are based on NASCET criteria. No comparisons. FINDINGS: There is occlusion of the right cervical ICA at its origin. There is a 4 millimeter saccular irregularity of the proximal left cervical ICA just beyond its origin likely representing a deep ulceration. There is mild less than 20 percent narrowing of the origin of the left cervical ICA. The remainder of the visualized cervical carotids and vertebral arteries are unremarkable. Specifically, no evidence of suspicious narrowing or aneurysmal dilatation. IMPRESSION: 1. Occlusion of the right cervical ICA at its origin. 2. Atherosclerotic disease (with less than 20 percent narrowing) of the proximal left cervical ICA with a prominent ulceration. Dictated by Nick Seay MD @ 08/17/2017 5:59:50 PM Dictated by: Nick Seay MD @ 08/17/2017 18:00:00 (Electronic Signature) Report Signed by Proxy. VALERIE
--- NOTE | 2017-08-18 12:00 | MR ---
EXAM DATE: 08/17/17 PATIENT'S AGE: 62 Patient: LANA BAÑUELOS Facility: [place], [place] Site . Site : 1955 Study: MRI Head W/ and W/O Cont [id number] 5:12:56 PM Ordering Physician: Misael García Final Report: INDICATION: L sided facial numbness INDICATION: Left-sided facial numbness TECHNIQUE: Noncontrast Sagittal T1,Axial FSE T2, Flair, DWI, post contrast axial and coronal T1W images submitted. Comparison CT of the head from August 17, 2017. FINDINGS: Mild to moderate cerebral and cerebellar atrophy. Subacute infarct of the superior lateral right frontal lobe that demonstrates mild peripheral enhancement. The remainder of the ventricles, sulci and gyri are of normal size , shape and contour for age and degree of atrophy. Midline structures are centrally located. No convincing evidence of suspicious intra- or extra-axial fluid collections. Mild patchy regions of increased T2 signal within the periventricular and subcortical white matter of both cerebral hemispheres. 8 millimeter focus of restricted diffusion along the left lateral frontal lobe with associated increased T2 signal. There are approximately 5 tiny foci of restricted diffusion and increased T2 signal in the right cerebral hemisphere with the bulk of the located within the right centrum semiovale compatible with late acute infarcts. No definable flow in the right petrous and cavernous ICA. IMPRESSION: 1. Late acute infarcts of both cerebral hemispheres with the largest located in the anterolateral left frontal lobe. 2. Subacute infarct of the anterior superior right frontal lobe. 3. Jelg-hr-[id number] cerebral and cerebellar atrophy. 4. Mild supratentorial white matter changes that are non-specific, but statistically most likely related to small vessel ischemic disease. 5. 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 6. Preliminary results were called to ordering doctor at 1755 hours Dictated by Nick Seay MD @ 08/17/2017 5:56:34 PM Dictated by: Nick Seay MD @ 08/17/2017 17:56:45 (Electronic Signature) Report Signed by Proxy. [facility]
--- NOTE | 2017-08-22 13:26 | ECHO ---
EXAM DATE: 08/17/17 PATIENT'S AGE: 62 The echocardiogram report can be seen in this patient's EMR (Electronic Medical Record) in the Reports section. The report has also been scanned into PACs. VALERIE
== END 2017-08-17 19:30 ==
LOC: MW.ED 05:21 → MW.MS 06:41 → INTOOBSV 06:41
PROVIDERS: ADMIT Internal Medicine; ATTEND Internal Medicine
DX: I63.9 Cerebral infarction, unspecified (principal); G31.89 Other specified degenerative diseases of nervous system; R53.1 Weakness; I10 Essential (primary) hypertension; I25.2 Old myocardial infarction; I25.10 Atherosclerotic heart disease of native coronary artery without angina pectoris; F17.210 Nicotine dependence, cigarettes, uncomplicated; Z88.0 Allergy status to penicillin; Z91.048 Other nonmedicinal substance allergy status
CPT/HCPCS: 36415; 70450; 70546; 70549; 70553; 71010; 80053; 80061; 82553; 83036; 84484; 85025; 85610; 93005; 93306; 96372; 96374; 97161; 99285; A9270; A9577; G0378; J1650; 99283

== ENCOUNTER 2018-01-07 01:42 | Observation (INO) | payer SELFPAY ==
[2018-01-07] MEDS ORDERED: Furosemide 40 MG/4 ML VIAL IVPUSH ONE (01:44)
--- NOTE | 2018-01-07 01:44 | EDM.PDOC ---
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 The patient had MRI and MRA of the brain yesterday after the MRI he noted more weakness than usual of his left lower extremity which on my evaluation is a week but he can lift his lower extremity against gravity, if his weakness is more than usual that would put his last well time over 24 hours prior. His is concerned but less helpful or she is intoxicated and unreliable in her history. In reading previous notes from Dr. Sanchez and appears to symptomology is unchanged from previous outside of the he does have a resting tremor, he denies any fever nausea vomiting chills sweats no chest pain shortness breath headache dizziness or palpitation no bowel or urine symptoms He is noted to have an elevated troponin of 0.07 with no EKG changes ] Review of systems: As per history of present illness and below otherwise all systems reviewed and negative. Past medical history: As per history of present illness and as reviewed below otherwise noncontributory. Surgical history: As per history of present illness and as reviewed below otherwise noncontributory. Social history: No reported history of drug or alcohol abuse. Family history: As per history of present illness and as reviewed below otherwise noncontributory. Physical exam: HEENT: Atraumatic, normocephalic, pupils reactive, negative for conjunctival pallor or scleral icterus, mucous membranes moist, throat clear, neck supple, nontender, trachea midline. Lungs: Clear to auscultation, breath sounds equal bilaterally, chest nontender. Heart: S1S2, regular, negative for clicks, rubs, or JVD. Abdomen: Soft, nondistended, nontender. Negative for masses or hepatosplenomegaly. Negative for costovertebral tenderness. Pelvis: Stable nontender. Genitourinary: Deferred. Rectal: Deferred. Extremities: Atraumatic, negative for cords or calf pain. Neurovascular unremarkable. Neuro: Awake, alert, oriented. Cranial nerves II through XII unremarkable. 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 Diagnostics: [CBC CMP UA INR troponin EKG Chest [address] no contrast ] Therapeutics: Labetalol 20 mg IV Lopressor 5 mg IV Aspirin 324 mg chewable Normal saline 1 50 mL per hour Patient admitted for observation and telemetry Laura ] Impression: [Elevated troponin Hypertensive emergency Left sided weakness] TIA cannot be ruled out Definitive disposition and diagnosis as appropriate pending reevaluation and review of above. - Related Data Allergies Allergy/AdvReac Type Severity Reaction Status Date / Time amoxicillin Allergy Hives Verified 08/17/17 05:33 coconut oil Allergy Cannot Verified 08/17/17 05:33 Remember Home Meds: Home Meds Aspirin [Ecotrin] 325 mg PO DAILY tab.ec 08/17/17 [Rx] atorvaSTATin [Lipitor] 80 mg PO DAILY tablet 08/17/17 [Rx] Lisinopril 0 mg PO DAILY 01/07/18 [History] Past Medical History - Past Health History Medical/Surgical History: Denies Medical/Surgical History Cardiovascular History: Reports: Hypertension, [place] Other Cardiovascular History: [place] 2013 Respiratory History: Reports: Other (See Below) Other Respiratory History: chronic smoker - Infectious Disease History Infectious Disease History: Reports: Chicken Pox, Measles, Mumps Social & Family History - Family History Family Medical History: Noncontributory - Tobacco Use Smoking Status *Q: Current Every Day Smoker Years of Tobacco use: 30 Packs/Tins Daily: 0.5 Second Hand Smoke Exposure: No - Caffeine Use Caffeine Use: Reports: Coffee Caffeine Use Comment: 3 cups daily - Recreational Drug Use Recreational Drug Use: No ED ROS GENERAL - Review of Systems Review Of Systems: ROS reveals no pertinent complaints other than HPI. ED EXAM, GENERAL - Physical Exam Exam: See Below Course - Vital Signs Last Recorded V/S: Last Vital Signs Temp 98.1 F 01/07/18 01:42 Pulse 76 01/07/18 02:54 Resp 21 H 01/07/18 02:00 BP 193/109 H 01/07/18 02:54 Pulse Ox 97 01/07/18 02:00 - Orders/Labs/Meds Orders: Active Orders 24 hr Category Date Time Status EKG Documentation Completion [RC] STAT Care 01/07/18 01:47 Active Chest 1V Frontal [CR] Stat Exams 01/07/18 01:43 Taken Head wo Cont [CT] Stat Exams 01/07/18 01:43 Taken B-TYPE NATRIURETIC PEPTIDE,BNP [CHEM] Stat Lab 01/07/18 02:51 Ordered UA W/MICROSCOPIC [URIN] Stat Lab 01/07/18 01:43 Ordered Sodium Chloride 0.9% [Normal Saline] 1,000 ml Med 01/07/18 01:42 Active IV ASDIRECTED Medication Orders Sodium Chloride (Normal Saline) 1,000 mls @ 150 mls/hr IV ASDIRECTED JAMAR Last Admin: 01/07/18 02:48 Dose: 150 mls/hr Labs: Laboratory Tests 01/07/18 01/07/18 01/07/18 Range/Units 01:41 01:41 01:41 WBC 15.87 H (4.0-11.0) K/uL RBC 5.02 (4.50-5.90) M/uL Hgb 15.3 (13.0-17.0) g/dL Hct 44.8 (38.0-50.0) % MCV 89.2 (80.0-98.0) fL MCH 30.5 (27.0-32.0) pg MCHC 34.2 (31.0-37.0) g/dL RDW Std Deviation 49.1 (28.0-62.0) fl RDW Coeff of [place]ub[place] 15 (11.0-15.0) % Plt Count 241 (150-400) K/uL MPV 10.60 (7.40-12.00) fL Add Manual Diff YES Neutrophils % (Manual) 71 (48.0-80.0) % Lymphocytes % (Manual) 23 (16.0-40.0) % Monocytes % (Manual) 5 (0.0-15.0) % Eosinophils % (Manual) 1 (0.0-7.0) % Nucleated RBC % 0.0 /100WBC Absolute Seg Neuts 11.3 H (1.4-5.7) Lymphocytes # (Manual) 3.7 H (0.6-2.4) Monocytes # (Manual) 0.8 (0.0-0.8) Eosinophils # (Manual) 0.2 (0.0-0.7) Nucleated RBCs # 0 K/uL INR 1.00 Sodium 140 (136-148) mmol/L Potassium 3.9 (3.5-5.1) mmol/L Chloride 105 (98-107) mmol/L Carbon Dioxide 24.9 (21.0-32.0) mmol/L BUN 22 H (7.0-18.0) mg/dL Creatinine 1.3 (0.8-1.3) mg/dL Est Cr Clr Drug Dosing TNP Estimated GFR (MDRD) 56.3 ml/min Glucose 112 H (74-106) mg/dL Calcium 9.5 (8.5-10.1) mg/dL Total Bilirubin 0.4 (0.2-1.0) mg/dL AST 28 (15-37) IU/L ALT 37 (14-63) IU/L Alkaline Phosphatase 128 H (46-116) U/L Troponin I 0.078 H* (0.000-0.056) ng/mL Total Protein 7.5 (6.4-8.2) g/dL Albumin 3.7 (3.4-5.0) g/dL Globulin 3.8 H (2.0-3.5) g/dL Albumin/Globulin Ratio 1.0 L (1.3-2.8) Ethyl Alcohol < 3.0 mg/dL Meds: Medications Generic Name Dose Route Start Last Admin Trade Name Freq PRN Reason Stop Dose Admin Sodium Chloride 1,000 mls @ 150 mls/hr 01/07/18 01:42 01/07/18 02:48 Normal Saline IV 150 mls/hr ASDIRECTED JAMAR Administration Discontinued Medications Generic Name Dose Route Start Last Admin Trade Name Freq PRN Reason Stop Dose Admin Aspirin 324 mg 01/07/18 02:39 01/07/18 02:53 Aspirin PO 01/07/18 02:40 324 mg ONETIME ONE Administration Labetalol HCl 20 mg 01/07/18 01:49 01/07/18 02:06 Normodyne IVPUSH 01/07/18 01:50 Not Given NOW ONE Protocol Labetalol HCl Confirm 01/07/18 01:54 01/07/18 01:59 Normodyne Administered 01/07/18 01:55 20 mg Dose Administration 100 mg .ROUTE .STK-MED ONE Metoprolol Tartrate 5 mg 01/07/18 02:45 01/07/18 02:54 Lopressor IVPUSH 01/07/18 02:56 5 mg Q5M JAMAR Administration Departure - Departure Time of Disposition: 02:58 Disposition: Refer to Observation Condition: Fair Clinical Impression: Elevated troponin, Left-sided weakness Hypertension Qualifiers: Hypertension type: unspecified secondary hypertension Qualified Code(s): I15.9 - Secondary hypertension, unspecified - Discharge Information Referrals: Cristobal Werner MD [Primary Care Provider] - Forms: ED Department Discharge - My Orders Last 24 Hours: My Active Orders 01/07/18 01:42 Sodium Chloride 0.9% [Normal Saline] 1,000 ml IV ASDIRECTED 01/07/18 01:43 Chest 1V Frontal [CR] Stat Head wo Cont [CT] Stat UA W/MICROSCOPIC [URIN] Stat 01/07/18 01:47 EKG Documentation Completion [RC] STAT 01/07/18 02:51 B-TYPE NATRIURETIC PEPTIDE,BNP [CHEM] Stat - Assessment/Plan Last 24 Hours: My Active Orders 01/07/18 01:42 Sodium Chloride 0.9% [Normal Saline] 1,000 ml IV ASDIRECTED 01/07/18 01:43 Chest 1V Frontal [CR] Stat Head wo Cont [CT] Stat UA W/MICROSCOPIC [URIN] Stat 01/07/18 01:47 EKG Documentation Completion [RC] STAT 01/07/18 02:51 B-TYPE NATRIURETIC PEPTIDE,BNP [CHEM] Stat
[2018-01-07] MEDS ORDERED: Labetalol 20 MG/4 ML Syringe IVPUSH ONE (01:49)
[2018-01-07] MEDS ORDERED: Labetalol 100 MG/20 ML MDV ONE (01:54)
[2018-01-07 02:13] LABS: CHLORIDE,CL 105 mmol/L (98-107); SODIUM,NA 140 mmol/L (136-148)
[2018-01-07] MEDS ORDERED: Aspirin 81 MG Tab.Chew PO ONE (02:39)
[2018-01-07] MEDS: Sodium Chloride 0.9% 1,000 ML IV SCH ×4 (02:48→22:36)
[2018-01-07] MEDS: Metoprolol Tartrate 5 MG/5 ML SDV IVPUSH SCH ×3 (02:54→03:05)
[2018-01-07] MEDS ORDERED: Metoprolol Tartrate 5 MG/5 ML SDV ONE (03:03)
[2018-01-07] MEDS ORDERED: Enalaprilat 1.25 MG/ML SDV IVPUSH STA (03:18)
--- NOTE | 2018-01-07 12:51 | PCM.HP ---
H&P History of Present Illness - General Admit Problem/Dx: Admission Diagnosis/Problem Admission Diagnosis/Problem Elevated troponin I level - History of Present Illness Initial Comments - Free Text/Narative: 62 yo male with pmh of CVA with residual left sided weakness and CAD with prior IA who presents the ED with complaints of left arm tremors. It started while they were drinking and smoking cigarettes. When the tremors stopped his weakness on the left side was back to his baseline from prior stroke. PAtient reports he has not been taking his medications for past week. He denies any chest pain, shortness of breath, or lightheadedness. - Related Data Allergies/Adverse Reactions: Allergies Allergy/AdvReac Type Severity Reaction Status Date / Time Sulfa (Sulfonamide Allergy Severe Anaphylactic Verified 01/07/18 03:49 Antibiotics) Shock amoxicillin Allergy Mild Hives Verified 01/07/18 03:49 coconut oil Allergy Mild Cannot Verified 01/07/18 03:49 Remember Home Medications: Home Meds Aspirin [Ecotrin] 325 mg PO DAILY tab.ec 08/17/17 [Rx] atorvaSTATin [Lipitor] 80 mg PO DAILY tablet 08/17/17 [Rx] Clopidogrel [Plavix] 75 mg PO DAILY 10 Days #10 tablet 01/09/18 [Rx] Lisinopril [Prinivil] 10 mg PO DAILY 30 Days #30 tablet 01/09/18 [Rx] Metoprolol Tartrate [Lopressor] 25 mg PO BIDMEALS 30 Days #60 tablet 01/09/18 [ Rx] Past Medical History - Past Health History Medical/Surgical History: Denies Medical/Surgical History HEENT History: Reports: Impaired Vision, Other (See Below) 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 Cardiovascular History: Reports: Hypertension, [place] Other Cardiovascular History: [place] 2012 Respiratory History: Reports: Other (See Below) Other Respiratory History: chronic smoker Gastrointestinal History: Reports: None Musculoskeletal History: Reports: None Neurological History: Reports: CVA, Headaches, Chronic, TIA Other Neuro History: CVA 2016 Psychiatric History: Reports: Other (See Below) Other Psychiatric History: Impaired decision making, less able to care for himself after CVA. Endocrine/Metabolic History: Reports: None Hematologic History: Reports: None Immunologic History: Reports: None Oncologic (Cancer) History: Reports: None Dermatologic History: Reports: None - Infectious Disease History Infectious Disease History: Reports: Chicken Pox, Measles, Mumps - Past Surgical History HEENT Surgical History: Reports: None Social & Family History - Family History Family Medical History: Noncontributory - Tobacco Use Smoking Status *Q: Current Every Day Smoker Years of Tobacco use: 30 Packs/Tins Daily: 0.5 Used Tobacco, but Quit: No Second Hand Smoke Exposure: Yes - Caffeine Use Caffeine Use: Reports: Coffee Caffeine Use Comment: 3 cups daily - Alcohol Use Date of Last Drink: 01/06/18 Time of Last Drink: 18:00 - Recreational Drug Use Recreational Drug Use: Yes Drug Use in Last 12 Months: Yes Recreational Drug Type: Reports: Marijuana/Hashish Recreational Drug Use Frequency: Daily Recreational Drug Last Use: 12/24 H&P Review of Systems - Review of Systems: Review Of Systems: ROS reveals no pertinent complaints other than HPI. Exam - Exam Exam: See Below - Vital Signs Vital Signs: Last Vital Signs Temp 36.2 C 01/07/18 12:00 Pulse 63 01/07/18 12:00 Resp 22 H 01/07/18 12:00 BP 162/95 H 01/07/18 12:00 Pulse Ox 97 01/07/18 12:00 Weight: 79.197 kg - Exam General: Alert, Oriented HEENT: Mucosa Moist & [place] Lungs: Clear to Auscultation, Normal Respiratory Effort Cardiovascular: Regular Rate, Regular Rhythm GI/Abdominal Exam: Soft, Non-Tender Extremities: No Pedal Edema - Patient Data Lab Results Last 24 hrs: Laboratory Results - last 24 hr 01/07/18 01/07/18 Range/Units 07:06 07:20 Troponin I 0.136 H* (0.000-0.056) ng/mL Urine Color YELLOW Urine Appearance SLT CLOUDY Urine pH 5.0 (5.0-8.0) Ur Specific [place] >= 1.030 (1.001-1.035) Urine Protein NEGATIVE (NEGATIVE) mg/dL Urine Glucose (UA) NEGATIVE (NEGATIVE) mg/dL Urine Ketones NEGATIVE (NEGATIVE) mg/dL Urine Occult Blood NEGATIVE (NEGATIVE) Urine Nitrite NEGATIVE (NEGATIVE) Urine Bilirubin NEGATIVE (NEGATIVE) Urine Urobilinogen 0.2 (<2.0) EU/dL Ur Leukocyte Esterase NEGATIVE (NEGATIVE) Urine RBC 0-3 (0-2/HPF) Urine WBC 1-4 (0-5/HPF) Ur Epithelial Cells RARE (NONE-FEW) Urine Bacteria FEW (NEGATIVE) Urine Mucus LIGHT (NONE-MOD) Result Diagrams: 01/09/18 05:35 01/09/18 07:04 Problem List Initiated/Reviewed/Updated: Yes Orders Last 24hrs: Active Orders 24 hr Category Date Time Status Neuro Check [RC] BID Care 01/07/18 04:43 Active Telemetry Monitoring [Cardiac Monitoring] [RC] Q8H Care 01/07/18 03:10 Active Heart Healthy Diet [DIET] Diet 01/07/18 Breakfast Active Aspirin [Ecotrin] Med 01/08/18 09:00 Ordered 325 mg PO DAILY atorvaSTATin [Lipitor] Med 01/07/18 13:00 Ordered 80 mg PO DAILY Medication Orders Aspirin (Ecotrin) 325 mg PO DAILY JAMAR Atorvastatin Calcium (Lipitor) 80 mg PO DAILY JAMAR Sodium Chloride (Normal Saline) 1,000 mls @ 150 mls/hr IV ASDIRECTED JAMAR Last Admin: 01/07/18 09:12 Dose: 150 mls/hr Infusion: 01/07/18 09:12 Dose: 150 mls/hr Admin: 01/07/18 02:48 Dose: 150 mls/hr Assessment/Plan Comment:: 62 yo male with pmh of CVA admitted for episode of hand tremor concerning for TIA/stroke. His symptoms have resolved and he is back to baseline strength of his left side. We will continue to monitor on telemetry and allow for permissive hypertension unless he develops anginal symptoms or rises in his troponin to suggest an acute coronary syndrome.
[2018-01-07] MEDS: atorvaSTATin 40 MG Tab PO SCH (13:08)
[2018-01-08] MEDS: Sodium Chloride 0.9% 1,000 ML IV SCH (05:19)
[2018-01-08 06:03] LABS: CHLORIDE,CL 111 mmol/L (98-107); SODIUM,NA 144 mmol/L (136-148)
[2018-01-08] MEDS ORDERED: Aspirin 325 MG Tab.EC PO SCH (09:00)
[2018-01-08] MEDS: atorvaSTATin 40 MG Tab PO SCH (09:19)
--- NOTE | 2018-01-08 15:26 | PCM.PN ---
- General Info Date of Service: 01/08/18 Subjective Update: Patient's left-sided weakness has mildly improved but he still does have it as compared to his right. No fevers chills nausea vomiting or any other symptomatology. No chest pain. - Patient Data Vitals - Most Recent: Last Vital Signs Temp 36.6 C 01/08/18 11:41 Pulse 67 01/08/18 11:41 Resp 14 01/08/18 11:41 BP 172/92 H 01/08/18 11:41 Pulse Ox 96 01/08/18 11:41 Weight - Most Recent: 79.197 kg I&O - Last 24 Hours: Intake & Output 01/08/18 01/08/18 01/08/18 06:59 14:59 22:59 Intake Total 2347 Output Total 300 Balance 2047 Lab Results Last 24 Hours: Laboratory Results - last 24 hr 01/07/18 01/08/18 01/08/18 Range/Units 15:00 05:05 05:05 WBC 8.68 (4.0-11.0) K/uL RBC 4.11 L (4.50-5.90) M/uL Hgb 12.3 L (13.0-17.0) g/dL Hct 36.7 L (38.0-50.0) % MCV 89.3 (80.0-98.0) fL MCH 29.9 (27.0-32.0) pg MCHC 33.5 (31.0-37.0) g/dL RDW Std Deviation 49.2 (28.0-62.0) fl RDW Coeff of Nubia 15 (11.0-15.0) % Plt Count 165 (150-400) K/uL MPV 10.60 (7.40-12.00) fL Neut % (Auto) 57.2 (48.0-80.0) % Lymph % (Auto) 25.9 (16.0-40.0) % [place] % (Auto) 7.8 (0.0-15.0) % Eos % (Auto) 8.1 H (0.0-7.0) % Baso % (Auto) 1.0 (0.0-1.5) % Neut # (Auto) 5.0 (1.4-5.7) K/uL Lymph # (Auto) 2.3 (0.6-2.4) K/uL [place] # (Auto) 0.7 (0.0-0.8) K/uL Eos # (Auto) 0.7 (0.0-0.7) K/uL Baso # (Auto) 0.1 (0.0-0.1) K/uL Nucleated RBC % 0.0 /100WBC Nucleated RBCs # 0 K/uL Sodium 144 (136-148) mmol/L Potassium 3.8 (3.5-5.1) mmol/L Chloride 111 H (98-107) mmol/L Carbon Dioxide 23.0 (21.0-32.0) mmol/L BUN 20 H (7.0-18.0) mg/dL Creatinine 1.0 (0.8-1.3) mg/dL Est Cr Clr Drug Dosing 78.56 mL/min Estimated GFR (MDRD) > 60.0 ml/min Glucose 93 (74-106) mg/dL Calcium 7.9 L (8.5-10.1) mg/dL Troponin I 0.093 H* < 0.050 (0.000-0.056) ng/mL Med Orders - Current: Current Medications Aspirin (Ecotrin) 325 mg PO DAILY [facility] Last Admin: 01/08/18 09:18 Dose: 325 mg Atorvastatin Calcium (Lipitor) 80 mg PO DAILY [facility] Last Admin: 01/08/18 09:19 Dose: 80 mg Discontinued Medications Aspirin (Aspirin) 324 mg PO ONETIME ONE Stop: 01/07/18 02:40 Last Admin: 01/07/18 02:53 Dose: 324 mg Enalaprilat (Vasotec Iv) 0.625 mg IVPUSH NOW STA Stop: 01/07/18 03:19 Last Admin: 01/07/18 03:25 Dose: 0.625 mg Sodium Chloride (Normal Saline) 1,000 mls @ 150 mls/hr IV ASDIRECTED [facility] Last Admin: 01/08/18 05:19 Dose: 150 mls/hr Labetalol HCl (Normodyne) 20 mg IVPUSH NOW ONE PRN Reason: Protocol Stop: 01/07/18 01:50 Last Admin: 01/07/18 02:06 Dose: Not Given Labetalol HCl (Normodyne) Confirm Administered Dose 100 mg .ROUTE .STK-MED ONE Stop: 01/07/18 01:55 Last Admin: 01/07/18 01:59 Dose: 20 mg Metoprolol Tartrate (Lopressor) 5 mg IVPUSH Q5M [facility] Stop: 01/07/18 02:56 Last Admin: 01/07/18 03:05 Dose: 5 mg Metoprolol Tartrate (Lopressor) Confirm Administered Dose 5 mg .ROUTE .STK-MED ONE Stop: 01/07/18 03:04 Last Admin: 01/07/18 03:05 Dose: Not Given - Exam General: Alert, Oriented, Cooperative Lungs: Clear to Auscultation, Normal Respiratory Effort Cardiovascular: Regular Rate, Regular Rhythm 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 His symptoms have resolved and he is back to baseline strength of his left side. We will continue to monitor on telemetry and allow for permissive hypertension unless he develops anginal symptoms or rises in his troponin to suggest an acute coronary syndrome. -2 who is new onset weakness the concern for stroke was elevated, we shall speak with neurology in regards to further assessment. Due to his elevated troponins we will have cardiology consult and have their recommendations as well.
--- NOTE | 2018-01-08 15:35 | CT ---
EXAM DATE: 01/07/18 PATIENT'S AGE: 62 Patient: LANA BAÑUELOS Facility: [place], [place] Site . Site : 1955 Study: CT Head STROKE PROTOCOL [id number]/[id number] 1:56:22 AM Ordering Physician: Doctor Marks Final Report: INDICATION: Left sided weakness, shaking TECHNIQUE: CT Head with i.v. contrast. CONTRAST: 100 mL Omnipaque 350 COMPARISON: 01/05/2018, 11/02/2017 FINDINGS: CSF spaces: The ventricles are normal for age. Brain: No evidence of mass, acute infarction or hemorrhage is seen. No mass- effect or midline shift is seen. Small focus of encephalomalacia is present in the right frontal lobe. The visualized [place] and dural venous sinuses are normal in enhancement. Calvarium: The visualized paranasal sinuses are well aerated. The mastoid air cells are clear. The visualized orbits are grossly unremarkable. The calvarium is unremarkable in appearance with no fractures identified. IMPRESSION: 1. No evidence of acute infarction, intracranial hemorrhage, or mass-effect seen. The findings were discussed with nurse Farooq at 2:05 AM. Dictated by Darshan Ocampo MD @ 01/07/2018 2:01:51 AM Dictated by: Darshan Ocampo MD @ 01/07/2018 02:06:10 (Electronic Signature) Report Signed by Proxy. [facility]
--- NOTE | 2018-01-08 15:36 | CR ---
EXAM DATE: 01/07/18 PATIENT'S AGE: 62 Patient: LANA BAÑUELOS Facility: [place], [place] Site . Site : 1955 Study: XRay Chest [id number]/25/2018 2:16:02 AM Ordering Physician: Doctor Marks Final Report: INDICATION: Chest pain, shortness of breath TECHNIQUE: Chest radiograph 1 view COMPARISON: 08/17/2017 FINDINGS: Mediastinum: The heart silhouette is normal in size and morphology. The mediastinum is normal in appearance. Lungs: Both lungs are unremarkable in appearance. No sign of pleural effusion seen. No pneumothorax is identified. Bones and soft tissue: Unremarkable for age. IMPRESSION: 1. No acute cardiopulmonary disease is seen. Dictated by: Darshan Ocampo MD @ 01/07/2018 02:16:44 (Electronic Signature) Report Signed by Proxy. VALERIE
[2018-01-08] MEDS: Clopidogrel 75 MG Tab PO SCH (18:17)
[2018-01-08] MEDS: Metoprolol Tartrate 25 MG Tab PO SCH (20:47)
[2018-01-09] MEDS ORDERED: Aspirin 81 MG Tab.Chew PO SCH (09:00)
[2018-01-09] MEDS: atorvaSTATin 40 MG Tab PO SCH (10:24)
[2018-01-09] MEDS: Clopidogrel 75 MG Tab PO SCH (10:25)
--- NOTE | 2018-01-09 10:27 | MR ---
EXAM DATE: 01/07/18 PATIENT'S AGE: 62 Patient: LANA BAÑUELOS Facility: [place], [place] Site . Site : 1955 Study: MRI Head Angio [id number] 8:32:30 PM Ordering Physician: Misael García Final Report: EXAMINATION: MRI BRAIN, MRA HEAD AND NECK DATE: 01/08/2018 HISTORY: Patient with new onset of left sided weakness. 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 TECHNIQUE: Multi-sequence, multiplanar MRI examination of the brain followed by 3D TOF MRA of the head and 3D TOF MRA of the neck was performed. COMPARISON: MRI/MRA 01/05/2018. FINDINGS: MRI BRAIN: There is no restricted diffusion in the brain to indicate the presence of acute ischemia. There is an old right frontal lobe infarction, unchanged. There are scattered foci of T2/FLAIR signal hyperintensity in the periventricular and subcortical white matter, likely related to microangiopathic changes. The T2 and FLAIR images are normal. The ventricular size is normal for age. The orbits are unremarkable. The paranasal sinuses are unremarkable. The mastoid air cells are clear. The calvarium is unremarkable. MRA HEAD: The right internal carotid artery is chronically occluded at its origin. There is filling of the right middle cerebral artery via the [place]. There is apparent decreased flow-related enhancement in the distal left anterior cerebral artery compared to the right side, which is slightly more pronounced from the previous examination. The anterior communicating artery is seen. The visualized portions of the right middle and anterior cerebral arteries are normal. The intracranial segments of the left internal carotid artery are normal. The visualized portions of the left middle cerebral artery is normal. The left vertebral artery is dominant. The visualized intracranial portions of the vertebral arteries are normal. The basilar artery is normal. The right posterior cerebral artery is normal. The left posterior cerebral artery is normal. MRA NECK: The right internal carotid artery is occluded. There is an unchanged mild (<50%) stenosis at the origin of the left internal carotid artery. The cervical segments of the vertebral arteries are grossly patent. IMPRESSION: 1. No acute ischemia in the brain. 2. Unchanged old right frontal lobe infarction. 3. Mild microangiopathic changes. 4. Chronic right internal carotid artery occlusion at its origin with filling of the right middle cerebral artery via the [place]. 5. Apparent decreased flow-related enhancement in the distal left anterior cerebral artery compared to the right side, which is slightly more pronounced from the previous examination. This may be due to differences in technique or artifact and is of uncertain clinical significance given the patient`s left- sided weakness. 6. Unchanged mild left internal carotid artery origin stenosis. Dictated by: Melvin Nolasco MD @ 01/08/2018 22:50:38 (Electronic Signature) Report Signed by Proxy. VALERIE
--- NOTE | 2018-01-09 10:28 | MR ---
EXAM DATE: 01/07/18 PATIENT'S AGE: 62 Patient: LANA BAÑUELOS Facility: [place], [place] Site . Site : 1955 Study: MRI Head [id number]/2018 8:33:25 PM Ordering Physician: Misael García Final Report: EXAMINATION: MRI BRAIN, MRA HEAD AND NECK DATE: 01/08/2018 HISTORY: Patient with new onset of left sided weakness. 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 TECHNIQUE: Multi-sequence, multiplanar MRI examination of the brain followed by 3D TOF MRA of the head and 3D TOF MRA of the neck was performed. COMPARISON: MRI/MRA 01/05/2018. FINDINGS: MRI BRAIN: There is no restricted diffusion in the brain to indicate the presence of acute ischemia. There is an old right frontal lobe infarction, unchanged. There are scattered foci of T2/FLAIR signal hyperintensity in the periventricular and subcortical white matter, likely related to microangiopathic changes. The T2 and FLAIR images are normal. The ventricular size is normal for age. The orbits are unremarkable. The paranasal sinuses are unremarkable. The mastoid air cells are clear. The calvarium is unremarkable. MRA HEAD: The right internal carotid artery is chronically occluded at its origin. There is filling of the right middle cerebral artery via the [place]. There is apparent decreased flow-related enhancement in the distal left anterior cerebral artery compared to the right side, which is slightly more pronounced from the previous examination. The anterior communicating artery is seen. The visualized portions of the right middle and anterior cerebral arteries are normal. The intracranial segments of the left internal carotid artery are normal. The visualized portions of the left middle cerebral artery is normal. The left vertebral artery is dominant. The visualized intracranial portions of the vertebral arteries are normal. The basilar artery is normal. The right posterior cerebral artery is normal. The left posterior cerebral artery is normal. MRA NECK: The right internal carotid artery is occluded. There is an unchanged mild (<50%) stenosis at the origin of the left internal carotid artery. The cervical segments of the vertebral arteries are grossly patent. IMPRESSION: 1. No acute ischemia in the brain. 2. Unchanged old right frontal lobe infarction. 3. Mild microangiopathic changes. 4. Chronic right internal carotid artery occlusion at its origin with filling of the right middle cerebral artery via the [place]. 5. Apparent decreased flow-related enhancement in the distal left anterior cerebral artery compared to the right side, which is slightly more pronounced from the previous examination. This may be due to differences in technique or artifact and is of uncertain clinical significance given the patient`s left- sided weakness. 6. Unchanged mild left internal carotid artery origin stenosis. Dictated by: Melvin Nolasco MD @ 01/08/2018 22:50:09 (Electronic Signature) Report Signed by Proxy. VALERIE
--- NOTE | 2018-01-09 10:30 | MR ---
EXAM DATE: 01/07/18 PATIENT'S AGE: 62 Patient: LANA BAÑUELOS Facility: [place], [place] Site . Site : 1955 Study: MRI Neck Angio Angio [id number]/26/2018 8:34:22 PM Ordering Physician: Misael García Final Report: EXAMINATION: MRI BRAIN, MRA HEAD AND NECK DATE: 01/08/2018 HISTORY: Patient with new onset of left sided weakness. 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 TECHNIQUE: Multi-sequence, multiplanar MRI examination of the brain followed by 3D TOF MRA of the head and 3D TOF MRA of the neck was performed. COMPARISON: MRI/MRA 01/05/2018. FINDINGS: MRI BRAIN: There is no restricted diffusion in the brain to indicate the presence of acute ischemia. There is an old right frontal lobe infarction, unchanged. There are scattered foci of T2/FLAIR signal hyperintensity in the periventricular and subcortical white matter, likely related to microangiopathic changes. The T2 and FLAIR images are normal. The ventricular size is normal for age. The orbits are unremarkable. The paranasal sinuses are unremarkable. The mastoid air cells are clear. The calvarium is unremarkable. MRA HEAD: The right internal carotid artery is chronically occluded at its origin. There is filling of the right middle cerebral artery via the [place]. There is apparent decreased flow-related enhancement in the distal left anterior cerebral artery compared to the right side, which is slightly more pronounced from the previous examination. The anterior communicating artery is seen. The visualized portions of the right middle and anterior cerebral arteries are normal. The intracranial segments of the left internal carotid artery are normal. The visualized portions of the left middle cerebral artery is normal. The left vertebral artery is dominant. The visualized intracranial portions of the vertebral arteries are normal. The basilar artery is normal. The right posterior cerebral artery is normal. The left posterior cerebral artery is normal. MRA NECK: The right internal carotid artery is occluded. There is an unchanged mild (<50%) stenosis at the origin of the left internal carotid artery. The cervical segments of the vertebral arteries are grossly patent. IMPRESSION: 1. No acute ischemia in the brain. 2. Unchanged old right frontal lobe infarction. 3. Mild microangiopathic changes. 4. Chronic right internal carotid artery occlusion at its origin with filling of the right middle cerebral artery via the [place]. 5. Apparent decreased flow-related enhancement in the distal left anterior cerebral artery compared to the right side, which is slightly more pronounced from the previous examination. This may be due to differences in technique or artifact and is of uncertain clinical significance given the patient`s left- sided weakness. 6. Unchanged mild left internal carotid artery origin stenosis. Dictated by: Melvin Nolasco MD @ 01/08/2018 22:50:23 (Electronic Signature) Report Signed by Proxy. VALERIE
[2018-01-09] MEDS: Metoprolol Tartrate 25 MG Tab PO SCH (10:33)
[2018-01-09] MEDS ORDERED: Metoprolol Tartrate 25 MG Tab PO ONE (11:40)
[2018-01-09] MEDS ORDERED: Lisinopril 10 MG Tab PO SCH (11:45)
[2018-01-09] MEDS ORDERED: Metoprolol Tartrate 25 MG Tab PO SCH ×2 (11:45→17:00)
[2018-01-09 13:06] LABS: CHLORIDE,CL 109 mmol/L (98-107); SODIUM,NA 143 mmol/L (136-148)
--- NOTE | 2018-01-09 15:20 | CONS ---
DATE OF CONSULTATION: 01/08/2018 DATE OF : 1955 PRIMARY CARE PHYSICIAN: Cristobal Werner REASON FOR CONSULTATION: Elevation in troponin. HISTORY OF PRESENT ILLNESS: This is a 62-year-old male, who had a history of CAD, status post PCI in 2012. At that time, he presented to the hospital with burning sensation and chest pain. He did not remember how many stents or what arteries that he had gotten stented. In last August, he was admitted in the hospital for left-sided weakness in his upper extremity and also lower extremity. MRI and MRA of the head did not show any evidence of large CVA, however, MRA of the neck showed total occlusion of the right internal carotid artery. However, the left internal carotid artery had very mild stenosis, less than 50%. He was seen by thoracic surgeon, who felt that the total occlusion of the right internal carotid artery was chronic and should be managed medically. He also had a PRASANTH done back when he was admitted for the left hemiparesis. It did not show any blockage or any left atrial appendage thrombus or intracardiac thrombus. He was started on aspirin and Plavix, as well as Lipitor 80 mg. He also carries diagnoses of COPD and hypertension. He currently is smoking still, and at this time, he presented to the hospital mainly because of a shakiness of his upper and lower extremity on the left side. He thinks that his weakness probably has gotten worse. He has a residual left-sided weakness from the previous stroke in last August 2017, but he feels that his weakness maybe got worse. He also had MRI and MRA done 2 days prior to admission at this time, and MRA of the neck did show a right internal carotid artery total occlusion and left internal carotid artery stenosis less than 50% and seemed to be unchanged and also that showed a right vertebral stenosis as well. However, no evidence of a stroke from an MRI of the head, and MRA of the head also did not show any stenosis, but this was done 2 days prior to this admission. Dr. Gauthier, his neurologist, recommended to repeat the MRI again, and results still pending. When he came to the emergency room, his blood pressure was very merissa-high in 200 range but due to possible new stroke or worsening stroke, permissive hypertension was pursued, and then his blood pressure was up and down in the range of 140 to 200. He also stated that he is still smoking, as well as he ran out of some of his medications, including Plavix, as well as the blood pressure medication. However, he was not exactly sure what medication that he is still taking. Otherwise he denies chest pain, denies shortness of breath. The only symptom that he has is the shakiness of left arm and left leg and possible worsening weakness of the left arm and the left leg. While he was in the hospital, his troponin was positive. Initial troponin was 0.078, it was up to 0.136, and currently has become normalized, less than 0.05. An EKG was done, also did not show any dynamic ST changes. He also had an event monitor done here in November, the complete report is still pending, and also he had an echo done in the past in August 2017, which showed ejection fraction of 55% and showed trace MR and trace TR and mild LVH. While he is here in the hospital, telemetry did not show any evidence of atrial fibrillation. PAST MEDICAL HISTORY: Including CAD, history of right CVA; however, the MRI of the head did not show any evidence of old stroke. History of hypertension. COPD, noncompliant. History of current smoking and status post PCI 2012. ALLERGIES: He is allergic to sulfa drugs, amoxicillin, and coconut oil. PAST SOCIAL HISTORY: He is currently smoking. No drug use. No alcohol use. FAMILY HISTORY: Noncontributory. PHYSICAL EXAMINATION: VITAL SIGNS: Initial blood pressure is 222/123, and blood pressure when I saw him is ranging between 170 to 190 and heart rate is 60 to 70s and temperature 36.7, O2 saturation is 97% on room air, and respirations 18. HEENT: No pallor. No jaundice. No JVD. HEART: Normal S1, S2. No murmur. LUNGS: Clear. ABDOMEN: Soft, nontender. Bowel sounds present. No hepatosplenomegaly. EXTREMITIES: Legs, no edema. LABORATORY INVESTIGATION: CBC showed initial was WBC 15, current WBC 8, hematocrit of 44, current hematocrit 36, platelets 241,000, current platelet is 165,000. Sodium 144, potassium 3.8, chloride 111, bicarb 23, BUN 20, creatinine is 1. GFR is more than 60. Troponin was peaking at 0.136, and now normalized. BNP 277. EKG on January 07, 2018, shows sinus rhythm. There is ST abnormality V4 to V6, seems to be unchanged from previous EKG, possibly from LVH, voltage criteria. ASSESSMENT AND PLAN: This is a 62-year-old male, who had a history of right-sided cerebrovascular accident with residual left-sided weakness, history of hypertension, coronary artery disease status post PCI, history of myocardial infarction, chronic obstructive pulmonary disease, current smoking presented to hospital with possible worsening stroke with shakiness of his left upper extremity and lower extremities and in concern of worsening stroke. He was also found to have the right internal carotid artery total occlusion, felt to be managed medically and also mild left internal carotid artery stenosis, less than 50%. Repeated MRI of the head is still pending, and his blood pressure seemed to be not very well controlled. At this time, it is more than 24 hours. Right now, his blood pressures need to be better controlled. He needs to be put him back on aspirin, as well as a Plavix 75. He needs to be on Lipitor 80 mg once a day as well. We will him back on metoprolol 25 for troponin elevation, as well as supportive blood pressure control. We will wait for the records from [facility] regarding his angiogram and cardiac workup, as well as we will wait for the report of the event monitoring that he had just done in November. SHARON MINA /[id number]
[2018-01-09] MEDS ORDERED: Lisinopril 10 MG Tab PO ONE (17:37)
[2018-01-09] MEDS ORDERED: amLODIPine 5 MG Tab PO ONE (17:37)
--- NOTE | 2018-01-09 18:07 | PCM.PN ---
- General Info Date of Service: 01/09/18 Subjective Update: Patient's hypertension still continues to be a problem despite placing the patient on Lopressor 25 mg twice a day including an increase in his lisinopril 10 mg.. Patient from a neurological standpoint is back to baseline left-sided weakness. - Review of Systems General: Reports: No Symptoms Gastrointestinal: Reports: No Symptoms Genitourinary: Reports: No Symptoms Musculoskeletal: Reports: No Symptoms Psychiatric: Reports: No Symptoms - Patient Data Vitals - Most Recent: Last Vital Signs Temp 36.7 C 01/09/18 16:00 Pulse 65 01/09/18 16:37 Resp 22 H 01/09/18 16:00 BP 186/86 H 01/09/18 16:37 Pulse Ox 96 01/09/18 16:00 Weight - Most Recent: 79.197 kg I&O - Last 24 Hours: Intake & Output 01/09/18 01/09/18 01/09/18 06:59 14:59 22:59 Intake Total 800 Balance 800 Lab Results Last 24 Hours: Laboratory Results - last 24 hr 01/09/18 01/09/18 Range/Units 05:35 07:04 WBC 8.63 (4.0-11.0) K/uL RBC 4.60 (4.50-5.90) M/uL Hgb 13.7 (13.0-17.0) g/dL Hct 40.5 (38.0-50.0) % MCV 88.0 (80.0-98.0) fL MCH 29.8 (27.0-32.0) pg MCHC 33.8 (31.0-37.0) g/dL RDW Std Deviation 47.6 (28.0-62.0) fl RDW Coeff of [place] 15 (11.0-15.0) % Plt Count 188 (150-400) K/uL MPV 10.60 (7.40-12.00) fL Neut % (Auto) 67.8 (48.0-80.0) % Lymph % (Auto) 17.1 (16.0-40.0) % [place] % (Auto) 7.6 (0.0-15.0) % Eos % (Auto) 6.3 (0.0-7.0) % Baso % (Auto) 1.2 (0.0-1.5) % Neut # (Auto) 5.9 H (1.4-5.7) K/uL Lymph # (Auto) 1.5 (0.6-2.4) K/uL [place] # (Auto) 0.7 (0.0-0.8) K/uL Eos # (Auto) 0.5 (0.0-0.7) K/uL Baso # (Auto) 0.1 (0.0-0.1) K/uL Nucleated RBC % 0.0 /100WBC Nucleated RBCs # 0 K/uL Sodium 143 (136-148) mmol/L Potassium 3.6 (3.5-5.1) mmol/L Chloride 109 H (98-107) mmol/L Carbon Dioxide 24.6 (21.0-32.0) mmol/L BUN 17 (7.0-18.0) mg/dL Creatinine 1.1 (0.8-1.3) mg/dL Est Cr Clr Drug Dosing 71.41 mL/min Estimated GFR (MDRD) > 60.0 ml/min Glucose 103 (74-106) mg/dL Calcium 8.9 (8.5-10.1) mg/dL Total Bilirubin 0.4 (0.2-1.0) mg/dL AST 20 (15-37) IU/L ALT 30 (14-63) IU/L Alkaline Phosphatase 111 (46-116) U/L Total Protein 6.5 (6.4-8.2) g/dL Albumin 3.0 L (3.4-5.0) g/dL Globulin 3.5 (2.0-3.5) g/dL Albumin/Globulin Ratio 0.9 L (1.3-2.8) Med Orders - Current: Current Medications Aspirin (Aspirin) 81 mg PO DAILY [facility] Last Admin: 01/09/18 10:24 Dose: 81 mg Atorvastatin Calcium (Lipitor) 80 mg PO DAILY [facility] Last Admin: 01/09/18 10:24 Dose: 80 mg Clopidogrel Bisulfate (Plavix) 75 mg PO DAILY [facility] Last Admin: 01/09/18 10:25 Dose: 75 mg Lisinopril (Prinivil) 10 mg PO DAILY [facility] Last Admin: 01/09/18 11:54 Dose: 10 mg Metoprolol Tartrate (Lopressor) 25 mg PO BIDMEALS [facility] Last Admin: 01/09/18 16:37 Dose: 25 mg Discontinued Medications Amlodipine Besylate (Norvasc) 5 mg PO ONETIME ONE Stop: 01/09/18 17:38 Aspirin (Aspirin) 324 mg PO ONETIME ONE Stop: 01/07/18 02:40 Last Admin: 01/07/18 02:53 Dose: 324 mg Aspirin (Ecotrin) 325 mg PO DAILY [facility] Last Admin: 01/08/18 09:18 Dose: 325 mg Enalaprilat (Vasotec Iv) 0.625 mg IVPUSH NOW STA Stop: 01/07/18 03:19 Last Admin: 01/07/18 03:25 Dose: 0.625 mg Sodium Chloride (Normal Saline) 1,000 mls @ 150 mls/hr IV ASDIRECTED [facility] Last Admin: 01/08/18 05:19 Dose: 150 mls/hr Labetalol HCl (Normodyne) 20 mg IVPUSH NOW ONE; Protocol Stop: 01/07/18 01:50 Last Admin: 01/07/18 02:06 Dose: Not Given Labetalol HCl (Normodyne) Confirm Administered Dose 100 mg .ROUTE .STK-MED ONE Stop: 01/07/18 01:55 Last Admin: 01/07/18 01:59 Dose: 20 mg Lisinopril (Prinivil) 20 mg PO ONETIME ONE Stop: 01/09/18 17:38 Metoprolol Tartrate (Lopressor) 5 mg IVPUSH Q5M [facility] Stop: 01/07/18 02:56 Last Admin: 01/07/18 03:05 Dose: 5 mg Metoprolol Tartrate (Lopressor) Confirm Administered Dose 5 mg .ROUTE .STK-MED ONE Stop: 01/07/18 03:04 Last Admin: 01/07/18 03:05 Dose: Not Given Metoprolol Tartrate (Lopressor) 12.5 mg PO Q12HR [facility] Last Admin: 01/09/18 10:33 Dose: 12.5 mg Metoprolol Tartrate (Lopressor) 25 mg PO BIDMEALS [facility] Metoprolol Tartrate (Lopressor) 12.5 mg PO ONETIME ONE Stop: 01/09/18 11:41 Last Admin: 01/09/18 11:53 Dose: 12.5 mg - Exam General: Alert, Oriented, Cooperative Lungs: Clear to Auscultation, Normal Respiratory Effort Cardiovascular: Regular Rate, Regular Rhythm GI/Abdominal Exam: Normal Bowel Sounds Extremities: Other (Plan left-sided weakness, 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 His symptoms have resolved and he is back to baseline strength of his left side. We will continue to monitor on telemetry and allow for permissive hypertension unless he develops anginal symptoms or rises in his troponin to suggest an acute coronary syndrome. -Dr. Gauthier asked for a MRI of the brain without contrast to see if there was new ischemic findings, the MRI was negative. Dr. Pinzon cardiology had a start the patient's lisinopr at 10 mg daily, as well as Lopressor 25 mg twice a day. Patient will require ischemic evaluation 6 months after the patient's stroke-type symptoms have been stabilized.
[2018-01-09 18:22] VITALS: BP 155/71
--- NOTE | 2018-01-11 15:30 | ECHO ---
EXAM DATE: 01/07/18 PATIENT'S AGE: 62 The echocardiogram report can be seen in this patient's EMR (Electronic Medical Record) in the Reports section. The report has also been scanned into PACs. VALERIE
== END 2018-01-09 19:45 | disposition home or self-care (01) ==
LOC: MW.ED 01:42 → MW.MS 02:59
PROVIDERS: ADMIT Internal Medicine; ATTEND Internal Medicine
DX: R25.1 Tremor, unspecified (principal); R79.89 Other specified abnormal findings of blood chemistry; I69.354 Hemiplegia and hemiparesis following cerebral infarction affecting left non-dominant side; I25.10 Atherosclerotic heart disease of native coronary artery without angina pectoris; I25.2 Old myocardial infarction; F17.210 Nicotine dependence, cigarettes, uncomplicated; I10 Essential (primary) hypertension; J44.9 Chronic obstructive pulmonary disease, unspecified; I15.9 Secondary hypertension, unspecified; Z88.2 Allergy status to sulfonamides; Z88.1 Allergy status to other antibiotic agents; Z91.018 Allergy to other foods; Z79.82 Long term (current) use of aspirin; Z79.899 Other long term (current) drug therapy; Z79.02 Long term (current) use of antithrombotics/antiplatelets; Z95.5 Presence of coronary angioplasty implant and graft
CPT/HCPCS: 36415; 70450; 70544; 70547; 70551; 71045; 80048; 80053; 81001; 83880; 84484; 85025; 85610; 93005; 93306; 96361; 96374; 96375; 99285; A9270; G0378; G0480; J7040; 99284

== ENCOUNTER 2018-02-04 16:45 | Observation (INO) | payer MEDICAID, OTHER ==
--- NOTE | 2018-02-04 16:51 | EDM.PDOC ---
<Jenny Good - Last Filed: 02/04/18 18:12> ED HPI GENERAL MEDICAL PROBLEM - General Chief Complaint: Neuro Symptoms/Deficits Stated Complaint: AMBULANCE Time Seen by Provider: 02/04/18 16:51 Source of Information: Reports: Patient, EMS, Family, Old Records, RN Notes Reviewed History Limitations: Reports: No Limitations - History of Present Illness INITIAL COMMENTS - FREE TEXT/NARRATIVE: HISTORY AND PHYSICAL: []62-year-old male presents per EMS with left-sided weakness that is more pronounced History of Present Illness: [The patient describes feeling left sided weakness increasing up to 3-1/2 hours previous to arrival in the emergency department. Son-in-law(Vijay) describes incidents of increasing left-sided weakness at 1 PM today. This timeframe does put him over a 4 hour limit of receiving thrombolytics. ]Patient was seen January 08, 2018 for strokelike symptoms he was reevaluated by Dr. Gauthier on outpatient basis had MRI completed. As he presented today per EMS he has told him this is the third time since he had his MRI completed that he has had strokes. 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 Initial onset of symptoms was in 2012. At which time he had a infarction of right frontal lobe. Patient has uncontrolled hypertension Continues to be a smoker Previous MRI of the brain reveals that he has chronic right internal carotid artery occlusion with filling of the right medial cerebral artery via the [place] he does have apparent decreased flow enhancement of the left distal anterior cerebral artery unchanged mild left internal carotid artery origin stenosis Patient has history of CAD he was evaluated by Dr. Sweet that is post PCI in 2012 did not recall at that time, the extensor arteries the stented last August was admitted to the hospital for left-sided weakness upper extremity and lower extremities during this interview was noted that his troponin was positive initial was 0.078 up to 0.136 and then normalized on the fourth troponin level EKG did not show any dynamic ST changes Patient has allergies to sulfa drugs amoxicillin and coconut oil Denies any drug or alcohol use. Review of Systems: As per history of present illness and below otherwise all systems reviewed and negative. Past medical history: As per history of present illness and as reviewed below otherwise noncontributory. Surgical history: As per history of present illness and as reviewed below otherwise noncontributory. Social history: No reported history of drug or alcohol abuse. Family history: As per history of present illness and as reviewed below otherwise noncontributory. Physical exam: Alert elderly gentleman answering questions speaking without any difficulty. No shortness of breath was noted. Strong smell of ETOH on initial exam. EKG: Sinus rhythm and LVH [id number] HEENT: Atraumatic, normocehpalic, pupils reactive, negative for conjunctival pallor or scleral icterus, mucous membranes moist, throat clear, neck supple, nontender, trachea midline. Lungs: Clear to auscultation, breath sounds equal bilaterally, chest non tender. The patient denies any chest pain at this time Heart: S1S2, regular, negative for clicks, rubs, or JVD. Abdomen: Soft, nondistended, nontender. Negative for masses or hepatossplenmegaly. Negative for costovertebral tenderness. Pelvis: Stable nontender. Genitourinary: Deferred. Rectal: Deferred Extremities: Atraumatic, negative for cords or calf pain. Neurovascular unremarkable. Neuro: Awake, alert, oriented. Cranial nerves II through XII unremarkable. Cerebellum unremarkable. Motor and sensory unremarkable throughout. Exam nonfocal. Have discussed this case with the family and patient recommended that he be observed overnight Discussed this case with , who has accepted patient for observation telemetry Diagnostics: [CBC CMP and PT/INR EKG chest x-ray and CT head] Therapeutics: [] labetalol 10 mg 1 L normal saline Impression: []Left-sided weakness TIA Alcohol use recent Plan: []Refer for observation on telemetry Definitive disposition and diagnosis as appropriate pending reevaluation and review of above. Onset: Today, Sudden Duration: Intermittent Location: Reports: Upper Extremity, Left, Lower Extremity, Left Quality: Reports: Same as Previous Episode Severity: Moderate Improves with: Reports: None Worsens with: Reports: None Associated Symptoms: Denies: Confusion, Chest Pain - Related Data Allergies Allergy/AdvReac Type Severity Reaction Status Date / Time Sulfa (Sulfonamide Allergy Severe Anaphylactic Verified 02/04/18 16:49 Antibiotics) Shock amoxicillin Allergy Mild Hives Verified 02/04/18 16:49 coconut oil Allergy Mild Cannot Verified 02/04/18 16:49 Remember Home Meds: Home Meds Aspirin [Ecotrin] 325 mg PO DAILY tab.ec 08/17/17 [Rx] atorvaSTATin [Lipitor] 80 mg PO DAILY tablet 08/17/17 [Rx] Clopidogrel [Plavix] 75 mg PO DAILY 10 Days #10 tablet 01/09/18 [Rx] Lisinopril [Prinivil] 10 mg PO DAILY 30 Days #30 tablet 01/09/18 [Rx] Metoprolol Tartrate [Lopressor] 25 mg PO BIDMEALS 30 Days #60 tablet 01/09/18 [ Rx] Past Medical History - Past Health History Medical/Surgical History: Denies Medical/Surgical History HEENT History: Reports: Impaired Vision, Other (See Below) 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 Cardiovascular History: Reports: Hypertension, [place] Other Cardiovascular History: [place] 2012 Respiratory History: Reports: Other (See Below) Other Respiratory History: chronic smoker Gastrointestinal History: Reports: None Musculoskeletal History: Reports: None Neurological History: Reports: CVA, Headaches, Chronic, TIA Other Neuro History: CVA 2016 Psychiatric History: Reports: Other (See Below) Other Psychiatric History: Impaired decision making, less able to care for himself after CVA. Endocrine/Metabolic History: Reports: None Hematologic History: Reports: None Immunologic History: Reports: None Oncologic (Cancer) History: Reports: None Dermatologic History: Reports: None - Infectious Disease History Infectious Disease History: Reports: Chicken Pox, Measles, Mumps - Past Surgical History HEENT Surgical History: Reports: None Social & Family History - Family History Family Medical History: Noncontributory - Tobacco Use Smoking Status *Q: Current Every Day Smoker Years of Tobacco use: 30 Packs/Tins Daily: 0.5 Used Tobacco, but Quit: No Second Hand Smoke Exposure: Yes - Caffeine Use Caffeine Use: Reports: Coffee Caffeine Use Comment: 3 cups daily - Recreational Drug Use Recreational Drug Use: Yes Drug Use in Last 12 Months: Yes Recreational Drug Type: Reports: Marijuana/Hashish Recreational Drug Use Frequency: Daily Recreational Drug Last Use: 12/24 ED ROS GENERAL - Review of Systems Review Of Systems: ROS reveals no pertinent complaints other than HPI. ED EXAM, NEURO - Physical Exam Exam: See Below (See dictation) EKG INTERPRETATION EKG Date: 02/04/18 Rhythm: NSR Rate (Beats/Min): 73 Comparison: No Change Course - Vital Signs Last Recorded V/S: Last Vital Signs Temp 36.3 C 02/04/18 16:50 Pulse 96 02/04/18 16:50 Resp 18 02/04/18 16:50 BP 181/102 H 02/04/18 16:50 Pulse Ox 95 02/04/18 16:50 - Orders/Labs/Meds Orders: Active Orders 24 hr Category Date Time Status Patient Status [ADT] Stat ADT 02/04/18 18:09 Active Cardiac Monitoring [RC] . DIRECTED Care 02/04/18 16:59 Active Communication Order [RC] STAT Care 02/04/18 17:00 Active EKG Documentation Completion [RC] STAT Care 02/04/18 16:59 Active Oxygen Therapy, ED [RC] ASDIRECTED Care 02/04/18 16:59 Active Pulse Oximetry [RC] ASDIRECTED Care 02/04/18 17:00 Active Telemetry Monitoring [Cardiac Monitoring] [RC] . Care 02/04/18 18:11 Active DIRECTED Chest 1V Frontal [CR] Routine Exams 02/04/18 Taken Chest 1V Frontal [CR] Stat Exams 02/04/18 17:00 Stop Req Head wo Cont [CT] Routine Exams 02/04/18 Taken Head wo Cont [CT] Stat Exams 02/04/18 17:00 Stop Req UA W/MICROSCOPIC [URIN] Stat Lab 02/04/18 17:41 Ordered Sodium Chloride 0.9% [Normal Saline] 1,000 ml Med 02/04/18 17:38 Active IV STAT Sodium Chloride 0.9% [Saline Flush] Med 02/04/18 16:59 Active 10 ml FLUSH ASDIRECTED PRN Sodium Chloride 0.9% [Saline Flush] Med 02/04/18 16:59 Active 2.5 ml FLUSH ASDIRECTED PRN Saline Lock Insert [OM.PC] Stat Oth 02/04/18 16:59 Ordered Medication Orders Sodium Chloride (Normal Saline) 1,000 mls @ 999 mls/hr IV STAT ONE Stop: 02/04/18 18:38 Last Admin: 02/04/18 18:12 Dose: 999 mls/hr Sodium Chloride (Saline Flush) 10 ml FLUSH ASDIRECTED PRN PRN Reason: Keep Vein Open Sodium Chloride (Saline Flush) 2.5 ml FLUSH ASDIRECTED PRN PRN Reason: Keep Vein Open Labs: Laboratory Tests 02/04/18 02/04/18 02/04/18 Range/Units 16:45 16:45 16:45 WBC 10.37 (4.0-11.0) K/uL RBC 4.68 (4.50-5.90) M/uL Hgb 14.3 (13.0-17.0) g/dL Hct 41.0 (38.0-50.0) % MCV 87.6 (80.0-98.0) fL MCH 30.6 (27.0-32.0) pg MCHC 34.9 (31.0-37.0) g/dL RDW Std Deviation 45.9 (28.0-62.0) fl RDW Coeff of [place] 14 (11.0-15.0) % Plt Count 215 (150-400) K/uL MPV 10.30 (7.40-12.00) fL Neut % (Auto) 54.5 (48.0-80.0) % Lymph % (Auto) 30.9 (16.0-40.0) % [place] % (Auto) 7.3 (0.0-15.0) % Eos % (Auto) 5.9 (0.0-7.0) % Baso % (Auto) 1.4 (0.0-1.5) % Neut # (Auto) 5.7 (1.4-5.7) K/uL Lymph # (Auto) 3.2 H (0.6-2.4) K/uL [place] # (Auto) 0.8 (0.0-0.8) K/uL Eos # (Auto) 0.6 (0.0-0.7) K/uL Baso # (Auto) 0.1 (0.0-0.1) K/uL Nucleated RBC % 0.0 /100WBC Nucleated RBCs # 0 K/uL INR 1.01 Sodium 139 (136-148) mmol/L Potassium 3.9 (3.5-5.1) mmol/L Chloride 103 (98-107) mmol/L Carbon Dioxide 18.5 L (21.0-32.0) mmol/L BUN 28 H (7.0-18.0) mg/dL Creatinine 1.5 H (0.8-1.3) mg/dL Est Cr Clr Drug Dosing TNP Estimated GFR (MDRD) 47.7 ml/min Glucose 107 H (74-106) mg/dL Calcium 9.5 (8.5-10.1) mg/dL Magnesium (1.5-2.0) mg/dL Total Bilirubin 0.3 (0.2-1.0) mg/dL AST 23 (15-37) IU/L ALT 33 (14-63) IU/L Alkaline Phosphatase 105 (46-116) U/L Troponin I < 0.050 (0.000-0.056) ng/mL Total Protein 7.3 (6.4-8.2) g/dL Albumin 3.5 (3.4-5.0) g/dL Globulin 3.8 H (2.0-3.5) g/dL Albumin/Globulin Ratio 0.9 L (1.3-2.8) TSH 3rd Generation 3.00 (0.36-3.74) uIU/mL Urine Color Urine Appearance Urine pH (5.0-8.0) Ur Specific [place] (1.001-1.035) Urine Protein (NEGATIVE) mg/dL Urine Glucose (UA) (NEGATIVE) mg/dL Urine Ketones (NEGATIVE) mg/dL Urine Occult Blood (NEGATIVE) Urine Nitrite (NEGATIVE) Urine Bilirubin (NEGATIVE) Urine Urobilinogen (<2.0) EU/dL Ur Leukocyte Esterase (NEGATIVE) Ethyl Alcohol 86 mg/dL 02/04/18 02/04/18 Range/Units 16:45 17:41 WBC (4.0-11.0) K/uL RBC (4.50-5.90) M/uL Hgb (13.0-17.0) g/dL Hct (38.0-50.0) % MCV (80.0-98.0) fL MCH (27.0-32.0) pg MCHC (31.0-37.0) g/dL RDW Std Deviation (28.0-62.0) fl RDW Coeff of [place] (11.0-15.0) % Plt Count (150-400) K/uL MPV (7.40-12.00) fL Neut % (Auto) (48.0-80.0) % Lymph % (Auto) (16.0-40.0) % [place] % (Auto) (0.0-15.0) % Eos % (Auto) (0.0-7.0) % Baso % (Auto) (0.0-1.5) % Neut # (Auto) (1.4-5.7) K/uL Lymph # (Auto) (0.6-2.4) K/uL [place] # (Auto) (0.0-0.8) K/uL Eos # (Auto) (0.0-0.7) K/uL Baso # (Auto) (0.0-0.1) K/uL Nucleated RBC % /100WBC Nucleated RBCs # K/uL INR Sodium (136-148) mmol/L Potassium (3.5-5.1) mmol/L Chloride (98-107) mmol/L Carbon Dioxide (21.0-32.0) mmol/L BUN (7.0-18.0) mg/dL Creatinine (0.8-1.3) mg/dL Est Cr Clr Drug Dosing Estimated GFR (MDRD) ml/min Glucose (74-106) mg/dL Calcium (8.5-10.1) mg/dL Magnesium 1.8 (1.5-2.0) mg/dL Total Bilirubin (0.2-1.0) mg/dL AST (15-37) IU/L ALT (14-63) IU/L Alkaline Phosphatase (46-116) U/L Troponin I (0.000-0.056) ng/mL Total Protein (6.4-8.2) g/dL Albumin (3.4-5.0) g/dL Globulin (2.0-3.5) g/dL Albumin/Globulin Ratio (1.3-2.8) TSH 3rd Generation (0.36-3.74) uIU/mL Urine Color YELLOW Urine Appearance CLEAR Urine pH 5.5 (5.0-8.0) Ur Specific [place] <= 1.005 (1.001-1.035) Urine Protein NEGATIVE (NEGATIVE) mg/dL Urine Glucose (UA) NEGATIVE (NEGATIVE) mg/dL Urine Ketones NEGATIVE (NEGATIVE) mg/dL Urine Occult Blood NEGATIVE (NEGATIVE) Urine Nitrite NEGATIVE (NEGATIVE) Urine Bilirubin NEGATIVE (NEGATIVE) Urine Urobilinogen 0.2 (<2.0) EU/dL Ur Leukocyte Esterase NEGATIVE (NEGATIVE) Ethyl Alcohol mg/dL Meds: Medications Generic Name Dose Route Start Last Admin Trade Name Freq PRN Reason Stop Dose Admin Sodium Chloride 1,000 mls @ 999 mls/hr 02/04/18 17:38 02/04/18 18:12 Normal Saline IV 02/04/18 18:38 999 mls/hr STAT ONE Administration Sodium Chloride 10 ml 02/04/18 16:59 Saline Flush FLUSH ASDIRECTED PRN Keep Vein Open Sodium Chloride 2.5 ml 02/04/18 16:59 Saline Flush FLUSH ASDIRECTED PRN Keep Vein Open Discontinued Medications Generic Name Dose Route Start Last Admin Trade Name Freq PRN Reason Stop Dose Admin Labetalol HCl 10 mg 02/04/18 18:15 Normodyne IV 02/04/18 18:16 NOW ONE Protocol Labetalol HCl 10 mg 02/04/18 18:15 Normodyne IVPUSH 02/04/18 18:16 NOW ONE Protocol Departure - Departure Time of Disposition: 18:13 Disposition: Refer to Observation Condition: Good Clinical Impression: Left-sided weakness TIA (transient ischemic attack) Qualifiers: Transient cerebral ischemia type: unspecified Qualified Code(s): G45.9 - Transient cerebral ischemic attack, unspecified - Discharge Information Instructions: Transient Ischemic Attack, [id number] Referrals: PCP,None [Primary Care Provider] - Forms: ED Department Discharge - My Orders Last 24 Hours: My Active Orders 02/04/18 16:59 Cardiac Monitoring [RC] . DIRECTED EKG Documentation Completion [RC] STAT Oxygen Therapy, ED [RC] ASDIRECTED Sodium Chloride 0.9% [Saline Flush] 10 ml FLUSH ASDIRECTED PRN Sodium Chloride 0.9% [Saline Flush] 2.5 ml FLUSH ASDIRECTED PRN Saline Lock Insert [OM.PC] Stat 02/04/18 17:00 Communication Order [RC] STAT Pulse Oximetry [RC] ASDIRECTED Chest 1V Frontal [CR] Stat Head wo Cont [CT] Stat 02/04/18 17:41 UA W/MICROSCOPIC [URIN] Stat - Assessment/Plan Last 24 Hours: My Active Orders 02/04/18 16:59 Cardiac Monitoring [RC] . DIRECTED EKG Documentation Completion [RC] STAT Oxygen Therapy, ED [RC] ASDIRECTED Sodium Chloride 0.9% [Saline Flush] 10 ml FLUSH ASDIRECTED PRN Sodium Chloride 0.9% [Saline Flush] 2.5 ml FLUSH ASDIRECTED PRN Saline Lock Insert [OM.PC] Stat 02/04/18 17:00 Communication Order [RC] STAT Pulse Oximetry [RC] ASDIRECTED Chest 1V Frontal [CR] Stat Head wo Cont [CT] Stat 02/04/18 17:41 UA W/MICROSCOPIC [URIN] Stat <Abigail Herrera - Last Filed: 02/04/18 18:18> ED HPI GENERAL MEDICAL PROBLEM - History of Present Illness INITIAL COMMENTS - FREE TEXT/NARRATIVE: This is Dr. Herrera dictating an addendum note as a supervising physician on this case. Agree with history and physical as above and according to the son he noticed increased weakness on the left side at 1 PM which is greater than 4 hours ago. The patient has had multiple strokes and TIA symptoms in the past and has seen Dr. Gauthier. He was admitted here in August 2017 as well as this past December for similar symptomatology and has had workups including MRI/ MRA of the head and neck echocardiograms and cardiology evaluation. The patient denies any chest pain to us and has a blood alcohol level of 86. This confuses the symptomatology somewhat. His stroke scale is as noted per nursing of a 7. In light of this presentation and the timeframe along with the confounder of the blood alcohol level being elevated but do not feel that this patient is a candidate for TPA . Patient's prior admission in December was reviewed by us as well as all of his prior imaging and Cardiologic consultation. His blood pressure here is elevated and we will begin to attempt to control it better with labetalol and will discuss this with the hospitalist as well on admission Critical care time excluding procedures:31min Please add to impression above: Poorly controlled hypertension Please see nursing documentation as when the patient is specifically asked certain things on the stroke scale he says he feels weak and he has difficulty performing them but the patient is then witnessed by nursing to spontaneously move the left side easily without distress.
[2018-02-04] MEDS ORDERED: Sodium Chloride 0.9% 2.5 ML Syringe FLUSH PRN (16:59)
[2018-02-04] MEDS ORDERED: Sodium Chloride 0.9% 10 ML Syringe FLUSH PRN (16:59)
[2018-02-04 17:31] LABS: CHLORIDE,CL 103 mmol/L (98-107); SODIUM,NA 139 mmol/L (136-148)
[2018-02-04] MEDS ORDERED: Labetalol 20 MG/4 ML Syringe IVPUSH ONE (17:37)
[2018-02-04] MEDS ORDERED: Sodium Chloride 0.9% 1,000 ML IV ONE (17:38)
[2018-02-04] MEDS ORDERED: Labetalol 100 MG/20 ML MDV IV ONE (18:15)
[2018-02-04] MEDS ORDERED: Labetalol 100 MG/20 ML MDV IVPUSH ONE (18:15)
[2018-02-04] MEDS ORDERED: Acetaminophen 650 MG Supp RECTAL PRN (20:44)
[2018-02-04] MEDS ORDERED: Aspirin 300 MG Supp RECTAL ONE (21:18)
[2018-02-04] MEDS ORDERED: atorvaSTATin 40 MG Tab PO ONE (21:20)
[2018-02-04] MEDS ORDERED: LORazepam 2 MG/ML SDV IVPUSH PRN (21:21)
[2018-02-04] MEDS ORDERED: Thiamine 100 MG in Sodium Chloride 0.9% 100 ML IV ONE (21:22)
[2018-02-04] MEDS ORDERED: Labetalol 100 MG/20 ML MDV IVPUSH SCH (21:30)
[2018-02-04] MEDS: Lactated Ringers 1,000 ML IV SCH (22:09)
[2018-02-04] MEDS ORDERED: Labetalol 100 MG/20 ML MDV IVPUSH PRN (22:41)
[2018-02-04] MEDS ORDERED: Acetaminophen 325 MG Tab PO PRN (22:44)
--- NOTE | 2018-02-05 02:51 | PCM.HP ---
H&P History of Present Illness - General Date of Service: 02/04/18 Admit Problem/Dx: Admission Diagnosis/Problem Admission Diagnosis/Problem CVA ischemic Source of Information: Patient - History of Present Illness Initial Comments - Free Text/Narative: Patient 62 y old man with past medical history of Htn , [place] , multiple strokes on the left side , presented to [facility] due to sudden onset of numbness and weakness on the left side . Patient at baseline had a hand weakness of 3/10 and his LLE was normal strength , he was walking without a cane. He developed increased weakness in the left hand and new wekness and numbness LLE and LUE and fell. 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 Neurosurgery at [place] accepted patient but patient refused to go. Onset of Symptoms: Reports: Today Location: Reports: Upper Extremity, Left, Lower Extremity, Left - Related Data Allergies/Adverse Reactions: Allergies Allergy/AdvReac Type Severity Reaction Status Date / Time Sulfa (Sulfonamide Allergy Severe Anaphylactic Verified 02/04/18 16:49 Antibiotics) Shock amoxicillin Allergy Mild Hives Verified 02/04/18 16:49 coconut oil Allergy Mild Cannot Verified 02/04/18 16:49 Remember Home Medications: Home Meds Aspirin [Ecotrin] 325 mg PO DAILY tab.ec 08/17/17 [Rx] atorvaSTATin [Lipitor] 80 mg PO DAILY tablet 08/17/17 [Rx] Clopidogrel [Plavix] 75 mg PO DAILY 10 Days #10 tablet 01/09/18 [Rx] Lisinopril [Prinivil] 10 mg PO DAILY 30 Days #30 tablet 01/09/18 [Rx] Metoprolol Tartrate [Lopressor] 25 mg PO BIDMEALS 30 Days #60 tablet 01/09/18 [ Rx] Past Medical History - Past Health History Medical/Surgical History: Denies Medical/Surgical History HEENT History: Reports: Impaired Vision, Other (See Below) 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 Cardiovascular History: Reports: Hypertension, [place] Other Cardiovascular History: 2012 Respiratory History: Reports: Other (See Below) Other Respiratory History: chronic smoker Gastrointestinal History: Reports: None Genitourinary History: Reports: None Musculoskeletal History: Reports: None Neurological History: Reports: CVA, Headaches, Chronic, TIA Other Neuro History: CVA 2016 Psychiatric History: Reports: Other (See Below) Other Psychiatric History: Impaired decision making, less able to care for himself after CVA. Endocrine/Metabolic History: Reports: None Hematologic History: Reports: None Immunologic History: Reports: None Oncologic (Cancer) History: Reports: None Dermatologic History: Reports: None - Infectious Disease History Infectious Disease History: Reports: Chicken Pox, Measles, Mumps - Past Surgical History Head Surgeries/Procedures: Reports: None HEENT Surgical History: Reports: None Respiratory Surgical History: Reports: None GI Surgical History: Reports: Hernia, Inguinal Male Surgical History: Reports: None Endocrine Surgical History: Reports: None Neurological Surgical History: Reports: None Musculoskeletal Surgical History: Reports: None Social & Family History - Family History Family Medical History: Noncontributory - Tobacco Use Smoking Status *Q: Current Every Day Smoker Years of Tobacco use: 40 Packs/Tins Daily: 3 Used Tobacco, but Quit: No Second Hand Smoke Exposure: No - Caffeine Use Caffeine Use: Reports: Coffee Caffeine Use Comment: 3 cups daily - Recreational Drug Use Recreational Drug Use: No Drug Use in Last 12 Months: Yes Recreational Drug Type: Reports: Marijuana/Hashish Recreational Drug Use Frequency: Daily Recreational Drug Last Use: 12/24 H&P Review of Systems - Review of Systems: Review Of Systems: See Below General: Reports: No Symptoms Pulmonary: Reports: No Symptoms Cardiovascular: Reports: No Symptoms Gastrointestinal: Reports: No Symptoms Genitourinary: Reports: No Symptoms Musculoskeletal: Reports: No Symptoms Skin: Reports: No Symptoms Psychiatric: Reports: No Symptoms Neurological: Reports: Numbness, Syncope, Difficulty Walking, Gait Disturbance. Denies: Confusion, Dizziness, Headache, Change in Speech Hematologic/Lymphatic: Reports: No Symptoms Immunologic: Reports: No Symptoms Exam - Exam Exam: See Below - Vital Signs Vital Signs: Last Vital Signs Temp 98.1 F 02/05/18 00:00 Pulse 71 02/05/18 00:00 Resp 18 02/05/18 00:00 BP 188/104 H 02/05/18 00:00 Pulse Ox 97 02/05/18 00:00 Weight: 179 lb 10.828 oz - Exam General: Alert, Oriented HEENT: Conjunctiva Clear, EACs Clear, EOMI, Hearing Intact, Mucosa Moist & [place] , Nares Patent, Normal Nasal Septum Neck: Supple, Trachea Midline, +2 Carotid Pulse wo Bruit, Full Range of Motion Lungs: Clear to Auscultation, Normal Respiratory Effort Cardiovascular: Regular Rate, Regular Rhythm, Normal S1, Normal S2 GI/Abdominal Exam: Normal Bowel Sounds, Soft, Non-Tender, No Organomegaly, No Distention, No Abnormal Bruit (Male) Exam: No Hernia Back Exam: Normal Inspection Skin: Warm, Dry, Intact Neurological: Cranial Nerves Intact Neuro Extensive - Mental Status: Alert, Oriented x3 Psychiatric: Alert, Normal Affect - Patient Data Lab Results Last 24 hrs: Laboratory Results - last 24 hr 02/04/18 02/04/18 02/04/18 Range/Units 16:45 16:45 16:45 WBC 10.37 (4.0-11.0) K/uL RBC 4.68 (4.50-5.90) M/uL Hgb 14.3 (13.0-17.0) g/dL Hct 41.0 (38.0-50.0) % MCV 87.6 (80.0-98.0) fL MCH 30.6 (27.0-32.0) pg MCHC 34.9 (31.0-37.0) g/dL RDW Std Deviation 45.9 (28.0-62.0) fl RDW Coeff of [place] 14 (11.0-15.0) % Plt Count 215 (150-400) K/uL MPV 10.30 (7.40-12.00) fL Neut % (Auto) 54.5 (48.0-80.0) % Lymph % (Auto) 30.9 (16.0-40.0) % [place] % (Auto) 7.3 (0.0-15.0) % Eos % (Auto) 5.9 (0.0-7.0) % Baso % (Auto) 1.4 (0.0-1.5) % Neut # (Auto) 5.7 (1.4-5.7) K/uL Lymph # (Auto) 3.2 H (0.6-2.4) K/uL [place] # (Auto) 0.8 (0.0-0.8) K/uL Eos # (Auto) 0.6 (0.0-0.7) K/uL Baso # (Auto) 0.1 (0.0-0.1) K/uL Nucleated RBC % 0.0 /100WBC Nucleated RBCs # 0 K/uL INR 1.01 Sodium 139 (136-148) mmol/L Potassium 3.9 (3.5-5.1) mmol/L Chloride 103 (98-107) mmol/L Carbon Dioxide 18.5 L (21.0-32.0) mmol/L BUN 28 H (7.0-18.0) mg/dL Creatinine 1.5 H (0.8-1.3) mg/dL Est Cr Clr Drug Dosing TNP Estimated GFR (MDRD) 47.7 ml/min Glucose 107 H (74-106) mg/dL Calcium 9.5 (8.5-10.1) mg/dL Magnesium (1.5-2.0) mg/dL Total Bilirubin 0.3 (0.2-1.0) mg/dL AST 23 (15-37) IU/L ALT 33 (14-63) IU/L Alkaline Phosphatase 105 (46-116) U/L Troponin I < 0.050 (0.000-0.056) ng/mL Total Protein 7.3 (6.4-8.2) g/dL Albumin 3.5 (3.4-5.0) g/dL Globulin 3.8 H (2.0-3.5) g/dL Albumin/Globulin Ratio 0.9 L (1.3-2.8) TSH 3rd Generation 3.00 (0.36-3.74) uIU/mL Urine Color Urine Appearance Urine pH (5.0-8.0) Ur Specific [place] (1.001-1.035) Urine Protein (NEGATIVE) mg/dL Urine Glucose (UA) (NEGATIVE) mg/dL Urine Ketones (NEGATIVE) mg/dL Urine Occult Blood (NEGATIVE) Urine Nitrite (NEGATIVE) Urine Bilirubin (NEGATIVE) Urine Urobilinogen (<2.0) EU/dL Ur Leukocyte Esterase (NEGATIVE) Urine RBC (0-2/HPF) Urine WBC (0-5/HPF) Ur Epithelial Cells (NONE-FEW) Urine Bacteria (NEGATIVE) Ethyl Alcohol 86 mg/dL 02/04/18 02/04/18 Range/Units 16:45 17:41 WBC (4.0-11.0) K/uL RBC (4.50-5.90) M/uL Hgb (13.0-17.0) g/dL Hct (38.0-50.0) % MCV (80.0-98.0) fL MCH (27.0-32.0) pg MCHC (31.0-37.0) g/dL RDW Std Deviation (28.0-62.0) fl RDW Coeff of [place] (11.0-15.0) % Plt Count (150-400) K/uL MPV (7.40-12.00) fL Neut % (Auto) (48.0-80.0) % Lymph % (Auto) (16.0-40.0) % [place] % (Auto) (0.0-15.0) % Eos % (Auto) (0.0-7.0) % Baso % (Auto) (0.0-1.5) % Neut # (Auto) (1.4-5.7) K/uL Lymph # (Auto) (0.6-2.4) K/uL [place] # (Auto) (0.0-0.8) K/uL Eos # (Auto) (0.0-0.7) K/uL Baso # (Auto) (0.0-0.1) K/uL Nucleated RBC % /100WBC Nucleated RBCs # K/uL INR Sodium (136-148) mmol/L Potassium (3.5-5.1) mmol/L Chloride (98-107) mmol/L Carbon Dioxide (21.0-32.0) mmol/L BUN (7.0-18.0) mg/dL Creatinine (0.8-1.3) mg/dL Est Cr Clr Drug Dosing Estimated GFR (MDRD) ml/min Glucose (74-106) mg/dL Calcium (8.5-10.1) mg/dL Magnesium 1.8 (1.5-2.0) mg/dL Total Bilirubin (0.2-1.0) mg/dL AST (15-37) IU/L ALT (14-63) IU/L Alkaline Phosphatase (46-116) U/L Troponin I (0.000-0.056) ng/mL Total Protein (6.4-8.2) g/dL Albumin (3.4-5.0) g/dL Globulin (2.0-3.5) g/dL Albumin/Globulin Ratio (1.3-2.8) TSH 3rd Generation (0.36-3.74) uIU/mL Urine Color YELLOW Urine Appearance CLEAR Urine pH 5.5 (5.0-8.0) Ur Specific [place] <= 1.005 (1.001-1.035) Urine Protein NEGATIVE (NEGATIVE) mg/dL Urine Glucose (UA) NEGATIVE (NEGATIVE) mg/dL Urine Ketones NEGATIVE (NEGATIVE) mg/dL Urine Occult Blood NEGATIVE (NEGATIVE) Urine Nitrite NEGATIVE (NEGATIVE) Urine Bilirubin NEGATIVE (NEGATIVE) Urine Urobilinogen 0.2 (<2.0) EU/dL Ur Leukocyte Esterase NEGATIVE (NEGATIVE) Urine RBC 0-1 (0-2/HPF) Urine WBC 0-1 (0-5/HPF) Ur Epithelial Cells RARE (NONE-FEW) Urine Bacteria RARE (NEGATIVE) Ethyl Alcohol mg/dL Result Diagrams: 02/04/18 16:45 02/04/18 16:45 EKG INTERPRETATION EKG Date: 02/04/18 Rhythm: NSR P-Wave: Present ST-T: Normal - Problem List (1) CVA (cerebrovascular accident) SNOMED Code(s): 221619577 ICD Code: I63.9 - CEREBRAL INFARCTION, UNSPECIFIED Status: Acute Current Visit: Yes (2) Ischemic cerebrovascular accident (CVA) of frontal lobe SNOMED Code(s): 811218956 ICD Code: I63.9 - CEREBRAL INFARCTION, UNSPECIFIED Status: Acute Current Visit: Yes Problem List Initiated/Reviewed/Updated: Yes Orders Last 24hrs: Active Orders 24 hr Category Date Time Status Patient Status [ADT] Routine ADT 02/04/18 20:44 Active Patient Status [ADT] Stat ADT 02/04/18 18:09 Active Bedrest Bathroom Privileges [RC] ASDIRECTED Care 02/04/18 20:44 Active Blood Glucose Check, Bedside [RC] QIDACANDBED Care 02/04/18 20:44 Inactive CIWAA Assessment [RC] Q4H Care 02/04/18 21:20 Active Cardiac Monitoring [RC] Q8H Care 02/04/18 16:59 Active Communication Order [RC] ROUTINE Care 02/05/18 00:33 Active Communication Order [RC] STAT Care 02/04/18 17:00 Active EKG Documentation Completion [RC] STAT Care 02/04/18 16:59 Active Neuro Check [RC] Q2HR Care 02/04/18 20:49 Active Oxygen Therapy [RC] PRN Care 02/04/18 20:44 Active Oxygen Therapy, ED [RC] ASDIRECTED Care 02/04/18 16:59 Active Pulse Oximetry [RC] ASDIRECTED Care 02/04/18 17:00 Active Telemetry Monitoring [Cardiac Monitoring] [RC] . Care 02/04/18 18:11 Active DIRECTED VTE/DVT Education [RC] PER UNIT ROUTINE Care 02/04/18 20:44 Active Vital Signs [RC] Q4H Care 02/04/18 20:44 Active Consult to Physical Therapy [PT Evaluation and Cons 02/04/18 21:26 Active Treatment] [CONS] Routine Heart Healthy Diet [DIET] Diet 02/05/18 Breakfast Active Carotid Ltd Lt [US] Routine Exams 02/04/18 21:23 Ordered Carotid Ltd Rt [US] Routine Exams 02/04/18 21:23 Ordered Chest 1V Frontal [CR] Stat Exams 02/04/18 17:00 Stop Req Echo 2D wo Cont [US] Routine Exams 02/04/18 21:23 Ordered Head wo Cont [CT] Stat Exams 02/04/18 17:00 Stop Req CBC WITH AUTO DIFF [HEME] AM Lab 02/05/18 05:11 Ordered CBC WITH AUTO DIFF [HEME] AM Lab 02/06/18 05:11 Ordered CBC WITH AUTO DIFF [HEME] AM Lab 02/07/18 05:11 Ordered COMPREHENSIVE METABOLIC PN,CMP [CHEM] AM Lab 02/05/18 05:11 Ordered COMPREHENSIVE METABOLIC PN,CMP [CHEM] AM Lab 02/06/18 05:11 Ordered COMPREHENSIVE METABOLIC PN,CMP [CHEM] AM Lab 02/07/18 05:11 Ordered COMPREHENSIVE METABOLIC PN,CMP [CHEM] AM Lab 02/08/18 05:11 Ordered MAGNESIUM [CHEM] AM Lab 02/05/18 05:11 Ordered MAGNESIUM [CHEM] AM Lab 02/06/18 05:11 Ordered MAGNESIUM [CHEM] AM Lab 02/07/18 05:11 Ordered UA W/MICROSCOPIC [URIN] Stat Lab 02/04/18 17:41 Ordered Acetaminophen [Tylenol] Med 04/22/18 22:44 Active 650 mg PO Q4H PRN Acetaminophen [Tylenol] Med 02/04/18 20:44 Active 650 mg RECTAL Q4H PRN Clopidogrel [Plavix] Med 02/05/18 09:00 Active 75 mg PO DAILY LORazepam [Ativan] Med 02/04/18 21:21 Active See Protocol IVPUSH Q6H PRN Lactated Ringers [Ringers, Lactated] 1,000 ml Med 02/04/18 21:30 Active IV ASDIRECTED Sodium Chloride 0.9% [Saline Flush] Med 02/04/18 16:59 Active 10 ml FLUSH ASDIRECTED PRN Sodium Chloride 0.9% [Saline Flush] Med 02/04/18 16:59 Active 2.5 ml FLUSH ASDIRECTED PRN Saline Lock Insert [OM.PC] Stat Oth 02/04/18 16:59 Ordered Sequential Compression Device [OM.PC] Per Unit Routine Oth 02/04/18 20:45 Ordered Resuscitation Status Routine Resus Stat 02/04/18 20:44 Ordered Medication Orders Acetaminophen (Tylenol) 650 mg RECTAL Q4H PRN PRN Reason: Pain (mild 1-3) Acetaminophen (Tylenol) 650 mg PO Q4H PRN PRN Reason: Pain Clopidogrel Bisulfate (Plavix) 75 mg PO DAILY JAMAR Lactated Ringer's (Ringers, Lactated) 1,000 mls @ 150 mls/hr IV ASDIRECTED JAMAR Last Admin: 02/04/18 22:09 Dose: 150 mls/hr Lorazepam (Ativan) 0 mg IVPUSH Q6H PRN; Protocol PRN Reason: Agitation Stop: 02/16/18 21:20 Sodium Chloride (Saline Flush) 10 ml FLUSH ASDIRECTED PRN PRN Reason: Keep Vein Open Sodium Chloride (Saline Flush) 2.5 ml FLUSH ASDIRECTED PRN PRN Reason: Keep Vein Open Assessment and plan 1)cerebrovascular accident ischemic- will admit patient to telemetry, will keep blood pressure elevated and will treat only if Bp is more than 220/110 or end organ damage. will do speach and swallow eval , neurocheck q 2h . Patient took aspirin at home. Patient refused transferred tpo Neurosurgery at [place] , even though he was accepted , he doesnt want to go anywhere else. labetalol 10 mg iv q4 h prn for sbp more than 220/110 , will give patient atorvastaine 40 mg po daily Physical therapy eval.
[2018-02-05] MEDS ORDERED: Labetalol 100 MG/20 ML MDV IVPUSH PRN (03:43)
[2018-02-05] MEDS: Lactated Ringers 1,000 ML IV SCH (07:56)
[2018-02-05] MEDS: Clopidogrel 75 MG Tab PO SCH (09:23)
--- NOTE | 2018-02-05 09:52 | PCM.SN ---
- Free Text/Narrative Note: C diff infection with hypotension- fulminant disease
--- NOTE | 2018-02-05 10:02 | PCM.PN ---
- General Info Date of Service: 02/05/18 Admission Dx/Problem (Free Text): Admission Diagnosis/Problem Admission Diagnosis/Problem CVA ischemic Subjective Update: Patient is feeling better today , he squeezed my hand to a strength of 5/5 with the left hand. His muscle strength in the left lower extremity is significantly improved . - Review of Systems General: Reports: No Symptoms HEENT: Reports: No Symptoms Pulmonary: Reports: No Symptoms Cardiovascular: Reports: No Symptoms Gastrointestinal: Reports: No Symptoms Genitourinary: Reports: No Symptoms Musculoskeletal: Reports: No Symptoms Skin: Reports: No Symptoms Neurological: Reports: Difficulty Walking, Weakness, Gait Disturbance. Denies: No Symptoms, Confusion, Dizziness, Headache, Numbness, Paresthesia, Pre- Existing Deficit, Seizure, Syncope, Tingling, Trouble Speaking, Change in Speech Psychiatric: Reports: No Symptoms - Patient Data Vitals - Most Recent: Last Vital Signs Temp 97.3 F 02/05/18 08:00 Pulse 74 02/05/18 04:00 Resp 21 H 02/05/18 08:00 BP 204/106 H 02/05/18 08:25 Pulse Ox 96 02/05/18 08:00 Weight - Most Recent: 179 lb 10.828 oz I&O - Last 24 Hours: Intake & Output 02/04/18 02/05/18 02/05/18 22:59 06:59 14:59 Intake Total 100 240 Output Total 800 Balance 100 -560 Lab Results Last 24 Hours: Laboratory Results - last 24 hr 02/04/18 02/04/18 02/04/18 Range/Units 16:45 16:45 16:45 WBC 10.37 (4.0-11.0) K/uL RBC 4.68 (4.50-5.90) M/uL Hgb 14.3 (13.0-17.0) g/dL Hct 41.0 (38.0-50.0) % MCV 87.6 (80.0-98.0) fL MCH 30.6 (27.0-32.0) pg MCHC 34.9 (31.0-37.0) g/dL RDW Std Deviation 45.9 (28.0-62.0) fl RDW Coeff of Nubia 14 (11.0-15.0) % Plt Count 215 (150-400) K/uL MPV 10.30 (7.40-12.00) fL Neut % (Auto) 54.5 (48.0-80.0) % Lymph % (Auto) 30.9 (16.0-40.0) % [place] % (Auto) 7.3 (0.0-15.0) % Eos % (Auto) 5.9 (0.0-7.0) % Baso % (Auto) 1.4 (0.0-1.5) % Neut # (Auto) 5.7 (1.4-5.7) K/uL Lymph # (Auto) 3.2 H (0.6-2.4) K/uL [place] # (Auto) 0.8 (0.0-0.8) K/uL Eos # (Auto) 0.6 (0.0-0.7) K/uL Baso # (Auto) 0.1 (0.0-0.1) K/uL Nucleated RBC % 0.0 /100WBC Nucleated RBCs # 0 K/uL INR 1.01 Sodium 139 (136-148) mmol/L Potassium 3.9 (3.5-5.1) mmol/L Chloride 103 (98-107) mmol/L Carbon Dioxide 18.5 L (21.0-32.0) mmol/L BUN 28 H (7.0-18.0) mg/dL Creatinine 1.5 H (0.8-1.3) mg/dL Est Cr Clr Drug Dosing TNP Estimated GFR (MDRD) 47.7 ml/min Glucose 107 H (74-106) mg/dL Calcium 9.5 (8.5-10.1) mg/dL Magnesium (1.5-2.0) mg/dL Total Bilirubin 0.3 (0.2-1.0) mg/dL AST 23 (15-37) IU/L ALT 33 (14-63) IU/L Alkaline Phosphatase 105 (46-116) U/L Troponin I < 0.050 (0.000-0.056) ng/mL Total Protein 7.3 (6.4-8.2) g/dL Albumin 3.5 (3.4-5.0) g/dL Globulin 3.8 H (2.0-3.5) g/dL Albumin/Globulin Ratio 0.9 L (1.3-2.8) TSH 3rd Generation 3.00 (0.36-3.74) uIU/mL Urine Color Urine Appearance Urine pH (5.0-8.0) Ur Specific Eastern (1.001-1.035) Urine Protein (NEGATIVE) mg/dL Urine Glucose (UA) (NEGATIVE) mg/dL Urine Ketones (NEGATIVE) mg/dL Urine Occult Blood (NEGATIVE) Urine Nitrite (NEGATIVE) Urine Bilirubin (NEGATIVE) Urine Urobilinogen (<2.0) EU/dL Ur Leukocyte Esterase (NEGATIVE) Urine RBC (0-2/HPF) Urine WBC (0-5/HPF) Ur Epithelial Cells (NONE-FEW) Urine Bacteria (NEGATIVE) Ethyl Alcohol 86 mg/dL 02/04/18 02/04/18 02/05/18 Range/Units 16:45 17:41 05:12 WBC 10.02 (4.0-11.0) K/uL RBC 4.50 (4.50-5.90) M/uL Hgb 13.8 (13.0-17.0) g/dL Hct 40.6 (38.0-50.0) % MCV 90.2 (80.0-98.0) fL MCH 30.7 (27.0-32.0) pg MCHC 34.0 (31.0-37.0) g/dL RDW Std Deviation 45.3 (28.0-62.0) fl RDW Coeff of [place]ubia 14 (11.0-15.0) % Plt Count 180 (150-400) K/uL MPV 11.20 (7.40-12.00) fL Neut % (Auto) 58.1 (48.0-80.0) % Lymph % (Auto) 23.4 (16.0-40.0) % [place] % (Auto) 9.5 (0.0-15.0) % Eos % (Auto) 7.7 H (0.0-7.0) % Baso % (Auto) 1.3 (0.0-1.5) % Neut # (Auto) 5.8 H (1.4-5.7) K/uL Lymph # (Auto) 2.3 (0.6-2.4) K/uL [place] # (Auto) 1.0 H (0.0-0.8) K/uL Eos # (Auto) 0.8 H (0.0-0.7) K/uL Baso # (Auto) 0.1 (0.0-0.1) K/uL Nucleated RBC % /100WBC Nucleated RBCs # K/uL INR Sodium (136-148) mmol/L Potassium (3.5-5.1) mmol/L Chloride (98-107) mmol/L Carbon Dioxide (21.0-32.0) mmol/L BUN (7.0-18.0) mg/dL Creatinine (0.8-1.3) mg/dL Est Cr Clr Drug Dosing Estimated GFR (MDRD) ml/min Glucose (74-106) mg/dL Calcium (8.5-10.1) mg/dL Magnesium 1.8 (1.5-2.0) mg/dL Total Bilirubin (0.2-1.0) mg/dL AST (15-37) IU/L ALT (14-63) IU/L Alkaline Phosphatase (46-116) U/L Troponin I (0.000-0.056) ng/mL Total Protein (6.4-8.2) g/dL Albumin (3.4-5.0) g/dL Globulin (2.0-3.5) g/dL Albumin/Globulin Ratio (1.3-2.8) TSH 3rd Generation (0.36-3.74) uIU/mL Urine Color YELLOW Urine Appearance CLEAR Urine pH 5.5 (5.0-8.0) Ur Specific [place] <= 1.005 (1.001-1.035) Urine Protein NEGATIVE (NEGATIVE) mg/dL Urine Glucose (UA) NEGATIVE (NEGATIVE) mg/dL Urine Ketones NEGATIVE (NEGATIVE) mg/dL Urine Occult Blood NEGATIVE (NEGATIVE) Urine Nitrite NEGATIVE (NEGATIVE) Urine Bilirubin NEGATIVE (NEGATIVE) Urine Urobilinogen 0.2 (<2.0) EU/dL Ur Leukocyte Esterase NEGATIVE (NEGATIVE) Urine RBC 0-1 (0-2/HPF) Urine WBC 0-1 (0-5/HPF) Ur Epithelial Cells RARE (NONE-FEW) Urine Bacteria RARE (NEGATIVE) Ethyl Alcohol mg/dL 02/05/18 Range/Units 05:12 WBC (4.0-11.0) K/uL RBC (4.50-5.90) M/uL Hgb (13.0-17.0) g/dL Hct (38.0-50.0) % MCV (80.0-98.0) fL MCH (27.0-32.0) pg MCHC (31.0-37.0) g/dL RDW Std Deviation (28.0-62.0) fl RDW Coeff of Nubia (11.0-15.0) % Plt Count (150-400) K/uL MPV (7.40-12.00) fL Neut % (Auto) (48.0-80.0) % Lymph % (Auto) (16.0-40.0) % [place] % (Auto) (0.0-15.0) % Eos % (Auto) (0.0-7.0) % Baso % (Auto) (0.0-1.5) % Neut # (Auto) (1.4-5.7) K/uL Lymph # (Auto) (0.6-2.4) K/uL [place] # (Auto) (0.0-0.8) K/uL Eos # (Auto) (0.0-0.7) K/uL Baso # (Auto) (0.0-0.1) K/uL Nucleated RBC % /100WBC Nucleated RBCs # K/uL INR Sodium 142 (136-148) mmol/L Potassium 3.8 (3.5-5.1) mmol/L Chloride 107 (98-107) mmol/L Carbon Dioxide 25.4 (21.0-32.0) mmol/L BUN 23 H (7.0-18.0) mg/dL Creatinine 1.4 H (0.8-1.3) mg/dL Est Cr Clr Drug Dosing 56.11 Estimated GFR (MDRD) 51.7 ml/min Glucose 112 H (74-106) mg/dL Calcium 9.2 (8.5-10.1) mg/dL Magnesium 1.7 (1.5-2.0) mg/dL Total Bilirubin 0.4 (0.2-1.0) mg/dL AST 17 (15-37) IU/L ALT 27 (14-63) IU/L Alkaline Phosphatase 100 (46-116) U/L Troponin I (0.000-0.056) ng/mL Total Protein 6.9 (6.4-8.2) g/dL Albumin 3.3 L (3.4-5.0) g/dL Globulin 3.6 H (2.0-3.5) g/dL Albumin/Globulin Ratio 0.9 L (1.3-2.8) TSH 3rd Generation (0.36-3.74) uIU/mL Urine Color Urine Appearance Urine pH (5.0-8.0) Ur Specific [place] (1.001-1.035) Urine Protein (NEGATIVE) mg/dL Urine Glucose (UA) (NEGATIVE) mg/dL Urine Ketones (NEGATIVE) mg/dL Urine Occult Blood (NEGATIVE) Urine Nitrite (NEGATIVE) Urine Bilirubin (NEGATIVE) Urine Urobilinogen (<2.0) EU/dL Ur Leukocyte Esterase (NEGATIVE) Urine RBC (0-2/HPF) Urine WBC (0-5/HPF) Ur Epithelial Cells (NONE-FEW) Urine Bacteria (NEGATIVE) Ethyl Alcohol mg/dL Med Orders - Current: Current Medications Acetaminophen (Tylenol) 650 mg PO Q4H PRN PRN Reason: Pain Clopidogrel Bisulfate (Plavix) 75 mg PO DAILY [facility] Last Admin: 02/05/18 09:23 Dose: 75 mg Lactated Ringer's (Ringers, Lactated) 1,000 mls @ 150 mls/hr IV ASDIRECTED [facility] Last Admin: 02/05/18 07:56 Dose: 150 mls/hr Labetalol HCl (Normodyne) 10 mg IVPUSH Q4H PRN; Protocol PRN Reason: Hypertension Lorazepam (Ativan) 0 mg IVPUSH Q6H PRN; Protocol PRN Reason: Agitation Stop: 02/16/18 21:20 Sodium Chloride (Saline Flush) 10 ml FLUSH ASDIRECTED PRN PRN Reason: Keep Vein Open Sodium Chloride (Saline Flush) 2.5 ml FLUSH ASDIRECTED PRN PRN Reason: Keep Vein Open Discontinued Medications Acetaminophen (Tylenol) 650 mg RECTAL Q4H PRN PRN Reason: Pain (mild 1-3) Aspirin (Aspirin) 300 mg RECTAL ONETIME ONE Stop: 02/04/18 21:19 Last Admin: 02/04/18 22:29 Dose: Not Given Atorvastatin Calcium (Lipitor) 40 mg PO ONETIME ONE Stop: 04/22/18 21:21 Last Admin: 02/04/18 22:50 Dose: 40 mg Sodium Chloride (Normal Saline) 1,000 mls @ 999 mls/hr IV STAT ONE Stop: 02/04/18 18:38 Last Admin: 02/04/18 18:12 Dose: 999 mls/hr Thiamine HCl 100 mg/ Sodium (Chloride) 101 mls @ 202 mls/hr IV DAILY ONE Stop: 02/04/18 21:23 Last Admin: 02/04/18 22:11 Dose: 202 mls/hr Labetalol HCl (Normodyne) 10 mg IV NOW ONE; Protocol Stop: 02/04/18 18:16 Labetalol HCl (Normodyne) 10 mg IVPUSH NOW ONE; Protocol Stop: 02/04/18 18:16 Last Admin: 02/04/18 18:26 Dose: 10 mg Labetalol HCl (Normodyne) 10 mg IVPUSH Q4H JAMAR; Protocol Last Admin: 02/04/18 22:40 Dose: Not Given Labetalol HCl (Normodyne) 10 mg IVPUSH Q4H PRN; Protocol PRN Reason: Hypertension Stop: 02/05/18 00:31 - Exam General: Alert, Oriented, No Acute Distress HEENT: Pupils Equal, Pupils Reactive, Mucous Membr. Moist/[place] Neck: Supple, Trachea Midline, No JVD, No Thyromegaly Lungs: Clear to Auscultation, Normal Respiratory Effort Cardiovascular: Regular Rate, Regular Rhythm, No Murmurs GI/Abdominal Exam: Normal Bowel Sounds, Soft, Non-Tender, No Organomegaly, No Distention, No Abnormal Bruit, No Mass Back Exam: Normal Inspection Extremities: Normal Inspection, No Pedal Edema Skin: Warm, Dry, Intact Neurological: Other (abnormal gait , left lower extremity weakness , left upper arm weakness) Psy/Mental Status: Alert, Normal Affect - Problem List & Annotations (1) CVA (cerebrovascular accident) SNOMED Code(s): 544448738 Code(s): I63.9 - CEREBRAL INFARCTION, UNSPECIFIED Status: Acute Current Visit: Yes (2) Ischemic cerebrovascular accident (CVA) of frontal lobe SNOMED Code(s): 666721223 Code(s): I63.9 - CEREBRAL INFARCTION, UNSPECIFIED Status: Acute Current Visit: Yes - Problem List Review Problem List Initiated/Reviewed/Updated: Yes - My Orders Last 24 Hours: My Active Orders 02/04/18 20:44 Patient Status [ADT] Routine Bedrest Bathroom Privileges [RC] ASDIRECTED Blood Glucose Check, Bedside [RC] QIDACANDBED VTE/DVT Education [RC] PER UNIT ROUTINE Vital Signs [RC] Q4H Resuscitation Status Routine 02/04/18 20:45 Sequential Compression Device [OM.PC] Per Unit Routine 02/04/18 20:49 Neuro Check [RC] Q2HR 02/04/18 21:20 CIWAA Assessment [RC] Q4H 02/04/18 21:21 LORazepam [Ativan] See Protocol IVPUSH Q6H PRN 02/04/18 21:26 Consult to Physical Therapy [PT Evaluation and Treatment] [CONS] Routine 02/04/18 21:30 Lactated Ringers [Ringers, Lactated] 1,000 ml IV ASDIRECTED 02/04/18 22:44 Acetaminophen [Tylenol] 650 mg PO Q4H PRN 02/05/18 Echo 2D wo Cont [US] Routine 02/05/18 00:33 Communication Order [RC] ROUTINE 02/05/18 03:43 Labetalol [Normodyne] 10 mg IVPUSH Q4H PRN 02/05/18 09:00 Clopidogrel [Plavix] 75 mg PO DAILY 02/05/18 Breakfast Heart Healthy Diet [DIET] 02/06/18 05:11 CBC WITH AUTO DIFF [HEME] AM COMPREHENSIVE METABOLIC PN,CMP [CHEM] AM MAGNESIUM [CHEM] AM 02/07/18 05:11 CBC WITH AUTO DIFF [HEME] AM COMPREHENSIVE METABOLIC PN,CMP [CHEM] AM MAGNESIUM [CHEM] AM 02/08/18 05:11 COMPREHENSIVE METABOLIC PN,CMP [CHEM] AM - Plan Plan:: 1)cerebrovascular accident ischemic- improving sensations and strength in the upper extremity , also in the lower extremity , neurocheck q 8 h , aspirin 325 mg po daily , atorvastatin 40 mg po daily.Blood pressure improved by itself in the afternoon. seen by PT - recommended patient to ambulate with walker with assistance 2) alcohol intoxication- patient on Iv fluids and CIWA protocol dvt profilaxis - heparin sq
[2018-02-05] MEDS: Aspirin 325 MG Tab PO SCH (13:49)
--- NOTE | 2018-02-05 15:21 | CT ---
EXAM DATE: 02/04/18 PATIENT'S AGE: 62 Patient: LANA BAÑUELOS Facility: [place], [place] Site . Site : 1955 Study: CT Head [id number]/22/2018 5:09:50 PM Ordering Physician: Doctor Marks Final Report: INDICATION: Stroke. TECHNIQUE: Multiple axial images were obtained through the brain without contrast. Sagittal and coronal re-formatted images were obtained. COMPARISON: 01/07/2018. FINDINGS: The ventricles and sulci are within normal limits. There is no mass effect or midline shift. There is no intracranial hemorrhage. There is an old infarct in the right frontal region. The marin-white matter differentiation is otherwise unremarkable. There is no fracture identified on bone windows. IMPRESSION: Old right frontal infarct. No acute intracranial abnormality. Dictated by Jeff Mccabe MD @ 02/04/2018 5:13:05 PM Please note that all CT scans at this facility use dose modulation, iterative reconstruction, and/or weight-based dosing when appropriate to reduce radiation dose to as low as reasonably achievable. Dictated by: Jeff Mccabe MD @ 02/04/2018 17:13:46 (Electronic Signature) Report Signed by Proxy. [facility]
--- NOTE | 2018-02-05 15:23 | CR ---
EXAM DATE: 02/04/18 PATIENT'S AGE: 62 Patient: LANA BAÑUELOS Facility: [place], [place] Site . Site : 1955 Study: XRay Chest [id number]/22/[id number] 5:10:13 PM Ordering Physician: Doctor Marks Final Report: CHEST 1 VIEW AP INDICATION: Acute stroke. IMPRESSION: Normal heart size and vascular pattern. Lungs are clear. No pneumothorax or pleural abnormality. ECG Monitor leads projected over the patient. Dictated by Reji Bolivar MD @ Feb 04 2018 5:12PM (Electronic Signature) Report Signed by Proxy. VALERIE
[2018-02-05] MEDS ORDERED: atorvaSTATin 40 MG Tab PO SCH (21:00)
[2018-02-06] MEDS: Clopidogrel 75 MG Tab PO SCH (08:53)
[2018-02-06] MEDS: Aspirin 325 MG Tab PO SCH (08:53)
[2018-02-06 11:29] VITALS: BP 197/117
[2018-02-06] MEDS ORDERED: Metoprolol Succinate 100 MG Tab.ER PO SCH (12:00)
--- NOTE | 2018-02-06 12:13 | PCM.DCSUM1 ---
Discharge Summary - Hospital Course HPI Initial Comments: Patient 62 y old man with PMhx of HTN and recurrent strokes on the left side with residual weakness in the left upper extremity , which has a strength of 3/ 5 I presented to ER due to sudden weakness in his LLE and LUE associated with numbness , patient fell on the floor. Patient was admitted in the hospital with diagnosis of CVA ischemic as his CT of the head showed only an old infarct in a right frontal lobe.Patient was treated with aspirin 325 mg po daily , atorvastatin 40 mg po daily and neurocheck q 2 h , permissive HTN , had cardiac echo which showed normal ef , no blood cloths , carotid doppler done . Patient seen by PT , recommended 4 wheels roller , patient symptoms improved the next day significant , he was stable for discharge. His MRA showed he has chronic Rt internal carotid obstruction , neurosurgery in [place] was informed and accepted the patient but patient refused to go. - Discharge Data Discharge Date: 02/06/18 Discharge Disposition: Home, Self-Care 01 Condition: Good - Discharge Diagnosis/Problem(s) (1) Ischemic cerebrovascular accident (CVA) of frontal lobe SNOMED Code(s): 540089875 ICD Code: I63.9 - CEREBRAL INFARCTION, UNSPECIFIED Status: Acute (2) Vertigo SNOMED Code(s): 095225170 ICD Code: R42 - DIZZINESS AND GIDDINESS Status: Acute - Patient Summary/Data Consults: Consultations 02/04/18 21:26 Consult to Physical Therapy [PT Evaluation and Treatment] [CONS] Routine - Patient Instructions Diet: Heart Healthy Diet Activity: As Tolerated Driving: Do Not Drive Showering/Bathing: May Shower - Discharge Plan Prescriptions/Med Rec: Meclizine [Antivert] 25 mg PO TID PRN #30 tab.chew PRN Reason: vertigo Metoprolol Succinate/HCTZ [Metoprolol ER-Hctz 100-12.5 mg] 1 each PO DAILY 30 Days #30 tab.er.24h Ondansetron HCl [Zofran] 4 mg PO Q4H PRN #30 tablet PRN Reason: Nausea Home Medications: Home Meds Aspirin [Ecotrin] 325 mg PO DAILY tab.ec 08/17/17 [Rx] Clopidogrel [Plavix] 75 mg PO DAILY 10 Days #10 tablet 01/09/18 [Rx] atorvaSTATin [Lipitor] 80 mg PO BEDTIME 02/05/18 [History] Meclizine [Antivert] 25 mg PO TID PRN #30 tab.chew 02/06/18 [Rx] Metoprolol Succinate/HCTZ [Metoprolol ER-Hctz 100-12.5 mg] 1 each PO DAILY 30 Days #30 tab.er.24h 02/06/18 [Rx] Ondansetron HCl [Zofran] 4 mg PO Q4H PRN #30 tablet 02/06/18 [Rx] Patient Handouts: Transient Ischemic Attack, [id number] Referrals: Baljit Baxter MD [Resident] - 02/12/18 2:30 pm Chelsea Gauthier MD [Physician] - 04/17/18 8:00 am (Nurse will contact you if there is a cancellation, so you can get in sooner. ) - Discharge Summary/Plan Comment DC Time >30 min.: Yes - General Info Date of Service: 02/08/18 - Review of Systems General: Reports: No Symptoms HEENT: Reports: No Symptoms Pulmonary: Reports: No Symptoms Cardiovascular: Reports: No Symptoms Gastrointestinal: Reports: No Symptoms Genitourinary: Reports: No Symptoms Musculoskeletal: Reports: No Symptoms Skin: Reports: No Symptoms Neurological: Reports: No Symptoms, Weakness (LLE) Psychiatric: Reports: No Symptoms - Patient Data Vitals - Most Recent: Last Vital Signs Temp 97.3 F 02/06/18 11:28 Pulse 67 02/06/18 11:28 Resp 22 H 02/06/18 11:28 BP 197/117 H 02/06/18 11:28 Pulse Ox 99 02/06/18 11:28 Weight - Most Recent: 179 lb 10.828 oz I&O - Last 24 hours: Intake & Output 02/05/18 02/06/18 02/06/18 22:59 06:59 14:59 Intake Total 2414 1447 Output Total 750 0 Balance 1664 1447 Lab Results - Last 24 hrs: Laboratory Results - last 24 hr 02/06/18 Range/Units 05:33 WBC 8.18 (4.0-11.0) K/uL RBC 4.77 (4.50-5.90) M/uL Hgb 14.6 (13.0-17.0) g/dL Hct 42.6 (38.0-50.0) % MCV 89.3 (80.0-98.0) fL MCH 30.6 (27.0-32.0) pg MCHC 34.3 (31.0-37.0) g/dL RDW Std Deviation 47.0 (28.0-62.0) fl RDW Coeff of [place]ubia 14 (11.0-15.0) % Plt Count 179 (150-400) K/uL MPV 10.60 (7.40-12.00) fL Neut % (Auto) 57.4 (48.0-80.0) % Lymph % (Auto) 22.2 (16.0-40.0) % [place] % (Auto) 9.3 (0.0-15.0) % Eos % (Auto) 9.8 H (0.0-7.0) % Baso % (Auto) 1.3 (0.0-1.5) % Neut # (Auto) 4.7 (1.4-5.7) K/uL Lymph # (Auto) 1.8 (0.6-2.4) K/uL [place] # (Auto) 0.8 (0.0-0.8) K/uL Eos # (Auto) 0.8 H (0.0-0.7) K/uL Baso # (Auto) 0.1 (0.0-0.1) K/uL Nucleated RBC % 0.0 /100WBC Nucleated RBCs # 0 K/uL Med Orders - Current: Current Medications Acetaminophen (Tylenol) 650 mg PO Q4H PRN PRN Reason: Pain Aspirin (Aspirin) 325 mg PO DAILY [facility] Last Admin: 02/06/18 08:53 Dose: 325 mg Aspirin (Ecotrin) 325 mg PO DAILY [facility] Atorvastatin Calcium (Lipitor) 40 mg PO BEDTIME [facility] Last Admin: 02/05/18 20:25 Dose: 40 mg Atorvastatin Calcium (Lipitor) 80 mg PO BEDTIME [facility] Clopidogrel Bisulfate (Plavix) 75 mg PO DAILY [facility] Last Admin: 02/06/18 08:53 Dose: 75 mg Labetalol HCl (Normodyne) 10 mg IVPUSH Q4H PRN; Protocol PRN Reason: Hypertension Last Admin: 02/05/18 10:59 Dose: 10 mg Lorazepam (Ativan) 0 mg IVPUSH Q6H PRN; Protocol PRN Reason: Agitation Stop: 02/16/18 21:20 Metoprolol Succinate (Toprol Xl) 100 mg PO DAILY [facility] Sodium Chloride (Saline Flush) 10 ml FLUSH ASDIRECTED PRN PRN Reason: Keep Vein Open Sodium Chloride (Saline Flush) 2.5 ml FLUSH ASDIRECTED PRN PRN Reason: Keep Vein Open Discontinued Medications Acetaminophen (Tylenol) 650 mg RECTAL Q4H PRN PRN Reason: Pain (mild 1-3) Aspirin (Aspirin) 300 mg RECTAL ONETIME ONE Stop: 02/04/18 21:19 Last Admin: 02/04/18 22:29 Dose: Not Given Atorvastatin Calcium (Lipitor) 40 mg PO ONETIME ONE Stop: 02/04/18 21:21 Last Admin: 02/04/18 22:50 Dose: 40 mg Sodium Chloride (Normal Saline) 1,000 mls @ 999 mls/hr IV STAT ONE Stop: 02/04/18 18:38 Last Admin: 02/04/18 18:12 Dose: 999 mls/hr Thiamine HCl 100 mg/ Sodium (Chloride) 101 mls @ 202 mls/hr IV DAILY ONE Stop: 02/04/18 21:23 Last Admin: 02/04/18 22:11 Dose: 202 mls/hr Lactated Ringer's (Ringers, Lactated) 1,000 mls @ 150 mls/hr IV ASDIRECTED JAMAR Last Admin: 02/05/18 07:56 Dose: 150 mls/hr Labetalol HCl (Normodyne) 10 mg IV NOW ONE; Protocol Stop: 02/04/18 18:16 Labetalol HCl (Normodyne) 10 mg IVPUSH NOW ONE; Protocol Stop: 02/04/18 18:16 Last Admin: 02/04/18 18:26 Dose: 10 mg Labetalol HCl (Normodyne) 10 mg IVPUSH Q4H JAMAR; Protocol Last Admin: 02/04/18 22:40 Dose: Not Given Labetalol HCl (Normodyne) 10 mg IVPUSH Q4H PRN; Protocol PRN Reason: Hypertension Stop: 02/05/18 00:31 - Exam General: Reports: Alert, Oriented HEENT: Reports: Pupils Equal, Pupils Reactive, EOMI Neck: Reports: Supple, Trachea Midline, No JVD, No Thyromegaly Lungs: Reports: Clear to Auscultation, Normal Respiratory Effort Cardiovascular: Reports: Regular Rate, Regular Rhythm, No Murmurs GI/Abdominal Exam: Normal Bowel Sounds Extremities: Normal Inspection Skin: Reports: Warm, Dry, Intact Neurological: Reports: No New Focal Deficit Psy/Mental Status: Reports: Alert, Normal Affect, Normal Mood EKG INTERPRETATION EKG Date: 02/08/18 Rhythm: NSR
[2018-02-06] MEDS ORDERED: atorvaSTATin 40 MG Tab PO SCH (21:00)
[2018-02-07] MEDS ORDERED: Aspirin 325 MG Tab.EC PO SCH (09:00)
--- NOTE | 2018-02-07 17:58 | ECHO ---
The echocardiogram report can be seen in this patient's EMR (electronic medical record) in the Reports section. The echocardiogram report has also been scanned into PACS and can be seen there. VALERIE
== END 2018-02-06 12:00 | disposition home or self-care (01) ==
LOC: MW.ED 16:45 → MW.MS 18:09
PROVIDERS: ADMIT Internal Medicine; ATTEND Internal Medicine
DX: I63.9 Cerebral infarction, unspecified (principal); I10 Essential (primary) hypertension; R42 Dizziness and giddiness; I25.2 Old myocardial infarction; F17.210 Nicotine dependence, cigarettes, uncomplicated; F10.129 Alcohol abuse with intoxication, unspecified; Y90.4 Blood alcohol level of 80-99 mg/100 ml; Z79.82 Long term (current) use of aspirin; Z79.899 Other long term (current) drug therapy; Z79.01 Long term (current) use of anticoagulants; Z88.2 Allergy status to sulfonamides; Z88.1 Allergy status to other antibiotic agents; Z91.02 Food additives allergy status
CPT/HCPCS: 36415; 70450; 71045; 80053; 81001; 83735; 84443; 84484; 85025; 85610; 93005; 93307; 96361; 96365; 96375; 96376; 97110; 97161; 97530; 99285; A9270; G0378; G0480; J3411; J7030; J7040; J7120; 96374; 99284

== ENCOUNTER 2018-03-22 09:25 | Emergency (ER) | payer MEDICAID ==
[2018-03-22] MEDS ORDERED: Sodium Chloride 0.9% 1,000 ML IV SCH (09:30)
--- NOTE | 2018-03-22 09:50 | EDM.PDOC ---
ED HPI GENERAL MEDICAL PROBLEM - General Chief Complaint: Neuro Symptoms/Deficits Stated Complaint: POSSIBLE STROKE Time Seen by Provider: 03/22/18 09:49 Source of Information: Reports: Patient - History of Present Illness INITIAL COMMENTS - FREE TEXT/NARRATIVE: HISTORY AND PHYSICAL: History of present illness: [Patient presents with history of stroke history of left upper extremity weakness and today was undergoing stress test with Dr. Sweet. After the stress test he stated he was feeling some left facial numbness as well as left lower extremity weakness which would be new for him, no slurred speech no dizziness or chest pain no shortness of breath headache no fever nausea vomiting chills sweats NIH stroke score is 8, which is his baseline from previous stroke, blood pressure is somewhat elevated prior to arrival Dr. Sweet had provided hydralazine this is controlled his blood pressure he was considered for TPA as a possible candidate I did phone consult with Dr. Gauthier and TPA was a consideration however patient is refused today he actually refuses admission and desires to sign out AMA, symptoms in the left upper extremity improved to his baseline and lower extremity appears to be improving as well making him less of a TPA candidate Patient has no fever nausea vomiting diarrhea constipation chest pain shortness of breath headache dizziness or palpitation no bowel or urine symptoms he states he is now at his baseline and is refusing TPA or admission for observation and desires to sign out AGAINST MEDICAL ADVICE Review of systems: As per history of present illness and below otherwise all systems reviewed and negative. Past medical history: As per history of present illness and as reviewed below otherwise noncontributory. Surgical history: As per history of present illness and as reviewed below otherwise noncontributory. Social history: No reported history of drug or alcohol abuse. Family history: As per history of present illness and as reviewed below otherwise noncontributory. Physical exam: HEENT: Atraumatic, normocephalic, pupils reactive, negative for conjunctival pallor or scleral icterus, mucous membranes moist, throat clear, neck supple, nontender, trachea midline. Lungs: Clear to auscultation, breath sounds equal bilaterally, chest nontender. Heart: S1S2, regular, negative for clicks, rubs, or JVD. Abdomen: Soft, nondistended, nontender. Negative for masses or hepatosplenomegaly. Negative for costovertebral tenderness. Pelvis: Stable nontender. Genitourinary: Deferred. Rectal: Deferred. Extremities: Atraumatic, negative for cords or calf pain. Neurovascular unremarkable. Neuro: Awake, alert, oriented. Cranial nerves II through XII unremarkable. Cerebellum unremarkable. Motor and sensory unremarkable throughout. Exam nonfocal. Diagnostics: [CBC CMP troponin INR Head CT no contrast MRI diffusion study was considered with Disha's phone consultation however patient refusing TPA making this study less important given his decision as well as his leaving AGAINST MEDICAL ADVICE at current : [] Impression: [History of stroke Negative head CT Stroke symptoms now improved he is currently a little over 2 hours out of symptom onset patient refuses admission and desires to sign out AGAINST MEDICAL ADVICE he'll follow with Dr. Gauthier at 2 PM tomorrow in her clinic ] Definitive disposition and diagnosis as appropriate pending reevaluation and review of above. left arm Pain Score (Numeric/FACES): 9 - Related Data Allergies Allergy/AdvReac Type Severity Reaction Status Date / Time Sulfa (Sulfonamide Allergy Severe Anaphylactic Verified 03/22/18 09:49 Antibiotics) Shock amoxicillin Allergy Mild Hives Verified 03/22/18 09:49 coconut oil Allergy Mild Cannot Verified 03/22/18 09:49 Remember Home Meds: Home Meds Aspirin [Ecotrin] 325 mg PO DAILY tab.ec 08/17/17 [Rx] Clopidogrel [Plavix] 75 mg PO DAILY 10 Days #10 tablet 01/09/18 [Rx] atorvaSTATin [Lipitor] 80 mg PO BEDTIME 02/05/18 [History] Meclizine [Antivert] 25 mg PO TID PRN #30 tab.chew 02/06/18 [Rx] Ondansetron HCl [Zofran] 4 mg PO Q4H PRN #30 tablet 02/06/18 [Rx] Glycopyrrolate/Formoterol Fum [Bevespi Aerosphere Inhaler] 1 inh IN BID [History] Lisinopril 20 mg PO BID 03/22/18 [History] Metoprolol Tartrate 25 mg PO BID 03/22/18 [History] Past Medical History - Past Health History Medical/Surgical History: Denies Medical/Surgical History HEENT History: Reports: Impaired Vision, Other (See Below) 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 Cardiovascular History: Reports: Hypertension, [place] Other Cardiovascular History: [place] 2013 Respiratory History: Reports: Other (See Below) Other Respiratory History: chronic smoker Gastrointestinal History: Reports: None Genitourinary History: Reports: None Musculoskeletal History: Reports: None Neurological History: Reports: CVA, Headaches, Chronic, TIA Other Neuro History: CVA 2016 Psychiatric History: Reports: Other (See Below) Other Psychiatric History: Impaired decision making, less able to care for himself after CVA. Endocrine/Metabolic History: Reports: None Hematologic History: Reports: None Immunologic History: Reports: None Oncologic (Cancer) History: Reports: None Dermatologic History: Reports: None - Infectious Disease History Infectious Disease History: Reports: Chicken Pox, Measles, Mumps - Past Surgical History Head Surgeries/Procedures: Reports: None HEENT Surgical History: Reports: None Respiratory Surgical History: Reports: None GI Surgical History: Reports: Hernia, Inguinal Male Surgical History: Reports: None Endocrine Surgical History: Reports: None Neurological Surgical History: Reports: None Musculoskeletal Surgical History: Reports: None Social & Family History - Family History Family Medical History: Noncontributory - Caffeine Use Caffeine Use: Reports: Coffee Caffeine Use Comment: 3 cups daily ED ROS GENERAL - Review of Systems Review Of Systems: See Below ED EXAM, GENERAL - Physical Exam Exam: See Below Course - Vital Signs Last Recorded V/S: Last Vital Signs Temp 97.8 F 03/22/18 09:30 Pulse 87 03/22/18 10:44 Resp 16 03/22/18 10:44 BP 168/94 H 03/22/18 10:44 Pulse Ox 97 03/22/18 10:44 - Orders/Labs/Meds Orders: Active Orders 24 hr Category Date Time Status EKG Documentation Completion [RC] STAT Care 03/22/18 09:29 Active UA W/MICROSCOPIC [URIN] Stat Lab 03/22/18 09:29 Ordered Sodium Chloride 0.9% [Normal Saline] 1,000 ml Med 03/22/18 09:30 Active IV STAT Medication Orders Sodium Chloride (Normal Saline) 1,000 mls @ 125 mls/hr IV STAT JAMAR Last Admin: 03/22/18 10:00 Dose: 125 mls/hr Labs: Laboratory Tests 03/22/18 03/22/18 03/22/18 Range/Units 09:37 09:37 09:37 WBC 9.80 (4.0-11.0) K/uL RBC 4.57 (4.50-5.90) M/uL Hgb 14.0 (13.0-17.0) g/dL Hct 40.1 (38.0-50.0) % MCV 87.7 (80.0-98.0) fL MCH 30.6 (27.0-32.0) pg MCHC 34.9 (31.0-37.0) g/dL RDW Std Deviation 44.1 (28.0-62.0) fl RDW Coeff of Nubia 14 (11.0-15.0) % Plt Count 190 (150-400) K/uL MPV 10.60 (7.40-12.00) fL Neut % (Auto) 66.9 (48.0-80.0) % Lymph % (Auto) 20.8 (16.0-40.0) % [place] % (Auto) 8.0 (0.0-15.0) % Eos % (Auto) 3.3 (0.0-7.0) % Baso % (Auto) 1.0 (0.0-1.5) % Neut # (Auto) 6.6 H (1.4-5.7) K/uL Lymph # (Auto) 2.0 (0.6-2.4) K/uL [place] # (Auto) 0.8 (0.0-0.8) K/uL Eos # (Auto) 0.3 (0.0-0.7) K/uL Baso # (Auto) 0.1 (0.0-0.1) K/uL Nucleated RBC % 0.0 /100WBC Nucleated RBCs # 0 K/uL INR 1.06 Sodium 139 (136-148) mmol/L Potassium 3.5 (3.5-5.1) mmol/L Chloride 104 (98-107) mmol/L Carbon Dioxide 22.9 (21.0-32.0) mmol/L BUN 29 H (7.0-18.0) mg/dL Creatinine 1.8 H (0.8-1.3) mg/dL Est Cr Clr Drug Dosing TNP Estimated GFR (MDRD) 38.7 ml/min Glucose 128 H (74-106) mg/dL Calcium 9.0 (8.5-10.1) mg/dL Total Bilirubin 0.6 (0.2-1.0) mg/dL AST 18 (15-37) IU/L ALT 32 (14-63) IU/L Alkaline Phosphatase 120 H (46-116) U/L Troponin I < 0.050 (0.000-0.056) ng/mL Total Protein 7.2 (6.4-8.2) g/dL Albumin 3.6 (3.4-5.0) g/dL Globulin 3.6 H (2.0-3.5) g/dL Albumin/Globulin Ratio 1.0 L (1.3-2.8) Meds: Medications Generic Name Dose Route Start Last Admin Trade Name Freq PRN Reason Stop Dose Admin Sodium Chloride 1,000 mls @ 125 mls/hr 03/22/18 09:30 03/22/18 10:00 Normal Saline IV 125 mls/hr STAT JAMAR Administration Departure - Departure Time of Disposition: 11:28 Disposition: Against Medical Advice 07 Condition: Fair Clinical Impression: Weakness, History of stroke - Discharge Information Referrals: PCP,None [Primary Care Provider] - Forms: ED Department Discharge Additional Instructions: Follow-up with Dr. Gauthier neurology at 2 PM tomorrow You may certainly return if symptoms persist or worsen or new concerning symptoms develop in the interim - My Orders Last 24 Hours: My Active Orders 03/22/18 09:29 EKG Documentation Completion [RC] STAT UA W/MICROSCOPIC [URIN] Stat 03/22/18 09:30 Sodium Chloride 0.9% [Normal Saline] 1,000 ml IV STAT - Assessment/Plan Last 24 Hours: My Active Orders 03/22/18 09:29 EKG Documentation Completion [RC] STAT UA W/MICROSCOPIC [URIN] Stat 03/22/18 09:30 Sodium Chloride 0.9% [Normal Saline] 1,000 ml IV STAT
--- NOTE | 2018-03-22 10:00 | CR ---
Portable chest Clinical history: Chest pain and shortness of breath Comparison: Chest x-ray February 04, 2018 Findings: For exposure and slight lordotic position the cardiomediastinum is within normal limits. Th e costophrenic angles are clear. The lungs are clear and the vessels normal. Impression: No acute cardiopulmonary disease allowing for position and technique
[2018-03-22 10:17] LABS: CHLORIDE,CL 104 mmol/L (98-107); SODIUM,NA 139 mmol/L (136-148)
[2018-03-22 10:49] VITALS: BP 168/94
--- NOTE | 2018-03-22 11:03 | CT ---
CT brain scan for stroke code Medical history: Old infarct with new symptoms Comparison: brain scan February 04, 2018 Findings: The ventricles and sulci are unchanged with no acute mass edema hemorrhage or space-occupyi ng process. The old right-sided infarct in the right frontotemporal zone is unchanged without evidenc e of extension by CT scan. Impression: No acute intracranial pathology. Old right frontotemporal infarct
== END 2018-03-22 11:43 | disposition left against medical advice (07) ==
LOC: MW.ED 09:25
DX: R53.1 Weakness (principal); I10 Essential (primary) hypertension; I25.2 Old myocardial infarction; Z88.2 Allergy status to sulfonamides; Z88.1 Allergy status to other antibiotic agents; Z91.048 Other nonmedicinal substance allergy status; Z79.82 Long term (current) use of aspirin; Z79.899 Other long term (current) drug therapy; Z86.73 Personal history of transient ischemic attack (TIA), and cerebral infarction without residual deficits
CPT/HCPCS: 36415; 70450; 71045; 80053; 84484; 85025; 85610; 93005; 96360; 99285; J7040; 99284

== ENCOUNTER 2018-04-21 00:01 | Emergency (ER) | payer MEDICAID ==
[2018-04-21] MEDS ORDERED: Sodium Chloride 0.9% 10 ML Syringe FLUSH PRN (00:02)
[2018-04-21] MEDS ORDERED: Aspirin 325 MG Tab PO ONE (00:02)
[2018-04-21] MEDS ORDERED: Sodium Chloride 0.9% 2.5 ML Syringe FLUSH PRN (00:02)
--- NOTE | 2018-04-21 00:23 | EDM.PDOC ---
ED HPI GENERAL MEDICAL PROBLEM - General Stated Complaint: POSSIBLE STROKE Time Seen by Provider: 04/21/18 00:05 Source of Information: Reports: Patient History Limitations: Reports: No Limitations - History of Present Illness INITIAL COMMENTS - FREE TEXT/NARRATIVE: HISTORY AND PHYSICAL: History of present illness: 62-year-old male presenting to emergency department by ambulance with one hour of left-sided weakness with history of CVA. As per patient he noticed sudden left-sided weakness approximately one hour ago. Called EMS. Since he had a similar episode twice in the past first one in August 2017 and last in March 2017. EMS noted left-sided weakness with left- sided facial drooping. Patient is full code Initial assessment showed an NIH stroke score of 6 with 2 for left arm 2 for left leg 1 for dysarthria and 1 for facial. Patient placed in a no chest pain, palpitations, shortness of breath, syncopal episodes. Initial blood pressure 180/[address] Johnson, ER physician [facility], who will accept the patient. CT of the head showed no hemorrhage, patient still having left-sided week, INR as well as platelets within inclusion criteria, blood sugar 140, patient given alteplase 7 mg IV bolus followed by a total of 70 mg alteplase infusion. Patient's blood pressure did increase to 210/200 and patient was given 10 of hydralazine IV Review of systems: As per history of present illness and below otherwise all systems reviewed and negative. Past medical history: As per history of present illness and as reviewed below otherwise noncontributory. Surgical history: As per history of present illness and as reviewed below otherwise noncontributory. Social history: No reported history of drug or alcohol abuse. Family history: As per history of present illness and as reviewed below otherwise noncontributory. Physical exam: HEENT: Atraumatic, normocephalic, pupils reactive, negative for conjunctival pallor or scleral icterus, mucous membranes moist, throat clear, neck supple, nontender, trachea midline. Lungs: Clear to auscultation, breath sounds equal bilaterally, chest nontender. Heart: S1S2, regular, negative for clicks, rubs, or JVD. Abdomen: Soft, nondistended, nontender. Negative for masses or hepatosplenomegaly. Negative for costovertebral tenderness. Pelvis: Stable nontender. Genitourinary: Deferred. Rectal: Deferred. Extremities: Atraumatic, negative for cords or calf pain. Neurovascular unremarkable. Neuro: Awake, alert, oriented. See above, mild fascial droop left, left pronator drift, left leg weakness. Diagnostics: CBC, CMP, INR, troponin, EKG, CT head Therapeutics: ASA, alteplase 7 mg bolus, total 70 mg Impression: Stroke Plan: See above Definitive disposition and diagnosis as appropriate pending reevaluation and review of above. - Related Data Allergies Allergy/AdvReac Type Severity Reaction Status Date / Time Sulfa (Sulfonamide Allergy Severe Anaphylactic Verified 04/21/18 00:26 Antibiotics) Shock amoxicillin Allergy Mild Hives Verified 04/21/18 00:26 coconut oil Allergy Mild Cannot Verified 04/21/18 00:26 Remember Home Meds: Home Meds Aspirin [Ecotrin] 325 mg PO DAILY tab.ec 08/17/17 [Rx] Clopidogrel [Plavix] 75 mg PO DAILY 10 Days #10 tablet 01/09/18 [Rx] atorvaSTATin [Lipitor] 80 mg PO BEDTIME 02/05/18 [History] Meclizine [Antivert] 25 mg PO TID PRN #30 tab.chew 02/06/18 [Rx] Glycopyrrolate/Formoterol Fum [Bevespi Aerosphere Inhaler] 1 inh IN BID [History] Lisinopril 20 mg PO BID 03/22/18 [History] Metoprolol Tartrate 25 mg PO BID 03/22/18 [History] amLODIPine Besylate [Amlodipine Besylate] 5 mg PO DAILY 04/21/18 [History] Past Medical History - Past Health History Medical/Surgical History: Denies Medical/Surgical History HEENT History: Reports: Impaired Vision, Other (See Below) 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 Cardiovascular History: Reports: Hypertension, [place] Other Cardiovascular History: [place] 2012 Respiratory History: Reports: Other (See Below) Other Respiratory History: chronic smoker Gastrointestinal History: Reports: None Genitourinary History: Reports: None Musculoskeletal History: Reports: None Neurological History: Reports: CVA, Headaches, Chronic, TIA Other Neuro History: CVA 2016 Psychiatric History: Reports: Other (See Below) Other Psychiatric History: Impaired decision making, less able to care for himself after CVA. Endocrine/Metabolic History: Reports: None Hematologic History: Reports: None Immunologic History: Reports: None Oncologic (Cancer) History: Reports: None Dermatologic History: Reports: None - Infectious Disease History Infectious Disease History: Reports: Chicken Pox, Measles, Mumps - Past Surgical History Head Surgeries/Procedures: Reports: None HEENT Surgical History: Reports: None Respiratory Surgical History: Reports: None GI Surgical History: Reports: Hernia, Inguinal Male Surgical History: Reports: None Endocrine Surgical History: Reports: None Neurological Surgical History: Reports: None Musculoskeletal Surgical History: Reports: None Social & Family History - Family History Family Medical History: Noncontributory - Caffeine Use Caffeine Use: Reports: Coffee Caffeine Use Comment: 3 cups daily ED ROS GENERAL - Review of Systems Review Of Systems: ROS reveals no pertinent complaints other than HPI. ED EXAM, GENERAL - Physical Exam Exam: See Below Course - Vital Signs Last Recorded V/S: Last Vital Signs Temp 98 F 04/21/18 00:21 Pulse 92 04/21/18 00:25 Resp 16 04/21/18 00:25 BP 180/105 H 04/21/18 00:25 Pulse Ox 97 04/21/18 00:25 - Orders/Labs/Meds Orders: Active Orders 24 hr Category Date Time Status Assess Neurological Status [RC] ASDIRECTED Care 04/21/18 00:02 Active Bedrest [RC] ASDIRECTED Care 04/21/18 00:02 Active Blood Glucose Check, Bedside [RC] STAT Care 04/21/18 00:02 Active Cardiac Monitoring [RC] . DIRECTED Care 04/21/18 00:02 Active EKG Documentation Completion [RC] STAT Care 04/21/18 00:02 Active Height and Weight [RC] UPON Care 04/21/18 00:02 Active Initiate Acute Stroke Protocol [RC] STAT Care 04/21/18 00:02 Active NIH Stroke Scale [RC] ASDIRECTED Care 04/21/18 00:02 Active Nursing Bedside Swallow Screen [RC] ASDIRECTED Care 04/21/18 00:02 Active Oxygen Therapy [RC] ASDIRECTED Care 04/21/18 00:02 Active Stroke Education, General [RC] Click to Edit Care 04/21/18 00:02 Active Vital Signs [RC] Q15M Care 04/21/18 00:02 Active Chest 1V Frontal [CR] Stat Exams 04/21/18 00:03 Taken Head wo Cont [CT] Stat Exams 04/21/18 00:02 Taken COMPREHENSIVE METABOLIC PN,CMP [CHEM] Stat Lab 04/21/18 00:12 Received TROPONIN I [CHEM] Stat Lab 04/21/18 00:12 Received TSH [CHEM] Stat Lab 04/21/18 00:12 Received TYPE AND SCREEN [BBK] Stat Lab 04/21/18 00:24 Received Sodium Chloride 0.9% [Saline Flush] Med 04/21/18 00:02 Active 10 ml FLUSH ASDIRECTED PRN Sodium Chloride 0.9% [Saline Flush] Med 04/21/18 00:02 Active 2.5 ml FLUSH ASDIRECTED PRN Peripheral IV Insertion Adult [OM.PC] Stat Oth 04/21/18 00:02 Ordered Peripheral IV Insertion Adult [OM.PC] Stat Oth 04/21/18 00:02 Ordered Medication Orders Sodium Chloride (Saline Flush) 10 ml FLUSH ASDIRECTED PRN PRN Reason: Keep Vein Open Sodium Chloride (Saline Flush) 2.5 ml FLUSH ASDIRECTED PRN PRN Reason: Keep Vein Open Labs: Laboratory Tests 04/21/18 04/21/18 04/21/18 Range/Units 00:12 00:12 00:27 WBC 10.29 (4.0-11.0) K/uL RBC 4.50 (4.50-5.90) M/uL Hgb 13.9 (13.0-17.0) g/dL Hct 39.8 (38.0-50.0) % MCV 88.4 (80.0-98.0) fL MCH 30.9 (27.0-32.0) pg MCHC 34.9 (31.0-37.0) g/dL RDW Std Deviation 44.0 (28.0-62.0) fl RDW Coeff of Nubia 14 (11.0-15.0) % Plt Count 239 (150-400) K/uL MPV 10.50 (7.40-12.00) fL Neut % (Auto) 67.1 (48.0-80.0) % Lymph % (Auto) 22.3 (16.0-40.0) % [place] % (Auto) 6.9 (0.0-15.0) % Eos % (Auto) 2.7 (0.0-7.0) % Baso % (Auto) 1.0 (0.0-1.5) % Neut # (Auto) 6.9 H (1.4-5.7) K/uL Lymph # (Auto) 2.3 (0.6-2.4) K/uL [place] # (Auto) 0.7 (0.0-0.8) K/uL Eos # (Auto) 0.3 (0.0-0.7) K/uL Baso # (Auto) 0.1 (0.0-0.1) K/uL Nucleated RBC % 0.0 /100WBC Nucleated RBCs # 0 K/uL INR 1.05 APTT 24.5 (18.6-31.3) SEC POC Glucose 141 H (60-110) mg/dL Meds: Medications Generic Name Dose Route Start Last Admin Trade Name Freq PRN Reason Stop Dose Admin Sodium Chloride 10 ml 04/21/18 00:02 Saline Flush FLUSH ASDIRECTED PRN Keep Vein Open Sodium Chloride 2.5 ml 04/21/18 00:02 Saline Flush FLUSH ASDIRECTED PRN Keep Vein Open Discontinued Medications Generic Name Dose Route Start Last Admin Trade Name Freq PRN Reason Stop Dose Admin Alteplase, Recombinant Confirm 04/21/18 00:36 04/21/18 00:48 Activase Administered 04/21/18 00:37 100 mg Dose Administration 100 mg .ROUTE .STK-MED ONE Aspirin 325 mg 04/21/18 00:02 04/21/18 00:46 Aspirin PO 04/21/18 00:03 325 mg ONETIME ONE Administration Hydralazine HCl 10 mg 04/21/18 00:41 04/21/18 00:46 Apresoline IVPUSH 04/21/18 00:42 10 mg ONETIME ONE Administration Hydralazine HCl Confirm 04/21/18 00:42 04/21/18 00:49 Apresoline Administered 04/21/18 00:43 Not Given Dose 20 mg .ROUTE .STK-MED ONE Departure - Departure Time of Disposition: 00:54 Disposition: DC/Tfer to Other 70 Condition: Fair Clinical Impression: Stroke due to embolism Qualifiers: Precerebral and cerebral artery: unspecified cerebral artery Qualified Code(s) : I63.40 - Cerebral infarction due to embolism of unspecified cerebral artery - Discharge Information - My Orders Last 24 Hours: My Active Orders 04/21/18 00:02 Assess Neurological Status [RC] ASDIRECTED Bedrest [RC] ASDIRECTED Blood Glucose Check, Bedside [RC] STAT Cardiac Monitoring [RC] . DIRECTED EKG Documentation Completion [RC] STAT Height and Weight [RC] UPON Initiate Acute Stroke Protocol [RC] STAT NIH Stroke Scale [RC] ASDIRECTED Nursing Bedside Swallow Screen [RC] ASDIRECTED Oxygen Therapy [RC] ASDIRECTED Stroke Education, General [RC] Click to Edit Vital Signs [RC] Q15M Head wo Cont [CT] Stat Sodium Chloride 0.9% [Saline Flush] 10 ml FLUSH ASDIRECTED PRN Sodium Chloride 0.9% [Saline Flush] 2.5 ml FLUSH ASDIRECTED PRN Peripheral IV Insertion Adult [OM.PC] Stat Peripheral IV Insertion Adult [OM.PC] Stat 04/21/18 00:03 Chest 1V Frontal [CR] Stat 04/21/18 00:12 COMPREHENSIVE METABOLIC PN,CMP [CHEM] Stat TROPONIN I [CHEM] Stat TSH [CHEM] Stat 04/21/18 00:24 TYPE AND SCREEN [BBK] Stat - Assessment/Plan Last 24 Hours: My Active Orders 04/21/18 00:02 Assess Neurological Status [RC] ASDIRECTED Bedrest [RC] ASDIRECTED Blood Glucose Check, Bedside [RC] STAT Cardiac Monitoring [RC] . DIRECTED EKG Documentation Completion [RC] STAT Height and Weight [RC] UPON Initiate Acute Stroke Protocol [RC] STAT NIH Stroke Scale [RC] ASDIRECTED Nursing Bedside Swallow Screen [RC] ASDIRECTED Oxygen Therapy [RC] ASDIRECTED Stroke Education, General [RC] Click to Edit Vital Signs [RC] Q15M Head wo Cont [CT] Stat Sodium Chloride 0.9% [Saline Flush] 10 ml FLUSH ASDIRECTED PRN Sodium Chloride 0.9% [Saline Flush] 2.5 ml FLUSH ASDIRECTED PRN Peripheral IV Insertion Adult [OM.PC] Stat Peripheral IV Insertion Adult [OM.PC] Stat 04/21/18 00:03 Chest 1V Frontal [CR] Stat 04/21/18 00:12 COMPREHENSIVE METABOLIC PN,CMP [CHEM] Stat TROPONIN I [CHEM] Stat TSH [CHEM] Stat 04/21/18 00:24 TYPE AND SCREEN [BBK] Stat
[2018-04-21 00:32] VITALS: BP 180/105
[2018-04-21] MEDS ORDERED: hydrALAZINE 20 MG/ML SDV IVPUSH ONE (00:41)
[2018-04-21] MEDS ORDERED: hydrALAZINE 20 MG/ML SDV ONE (00:42)
[2018-04-21 00:58] LABS: CHLORIDE,CL 104 mmol/L (98-107); SODIUM,NA 141 mmol/L (136-148)
[2018-04-21] MEDS ORDERED: ALTEPLASE IV SCH (01:15)
--- NOTE | 2018-04-23 18:08 | CT ---
EXAM DATE: 04/21/18 PATIENT'S AGE: 62 Patient: LANA BAÑUELOS Facility: [place], [place] Site . Site : 1955 Study: CT Head STROKE PROTOCOL [id number] 12:13:43 AM Ordering Physician: Mike Leiva MD Final Report: INDICATION: History of multiple strokes, new onset left-sided weakness, pronator drift TECHNIQUE: Head CT without contrast. COMPARISON: March 22, 2018 FINDINGS: CSF spaces: Within normal limits for age. Brain parenchyma: There are nonspecific low attenuation white matter changes consistent with chronic microvascular disease. No sign of mass, hemorrhage, or midline shift. Encephalomalacia within the right frontal lobe from remote infarction. Skull base and calvarium: The visualized paranasal sinuses and mastoid air cells demonstrate no acute or significant findings. The visualized orbits are grossly unremarkable. No skull fractures. There is intracranial atherosclerosis. IMPRESSION: 1. No acute findings. 2. Nonspecific white matter disease, typical of chronic microvascular disease. 3. Encephalomalacia within the right frontal lobe from prior infarction. Please note that all CT scans at this facility use dose modulation, iterative reconstruction, and/or weight-based dosing when appropriate to reduce radiation dose to as low as reasonably achievable. Dictated by Shefali Maloney MD @ Apr 21 2018 12:36AM (Electronic Signature) Report Signed by Proxy. [facility]
--- NOTE | 2018-04-23 18:10 | CR ---
EXAM DATE: 04/21/18 PATIENT'S AGE: 62 Patient: LANA BAÑUELOS Facility: [place], [place] Site . Site : 1955 Study: XRay Chest [id number]/[id number] 12:33:18 AM Ordering Physician: Doctor Marks Final Report: Indication: Acute onset left-sided week Technique: Chest 1 view Comparison: March 22, 2018 Findings/Impression: : Stable cardiomediastinal silhouette. Clear lungs and pleural spaces. No acute osseous abnormality. Dictated by Shefali Maloney MD @ Apr 21 2018 12:39AM (Electronic Signature) Report Signed by Proxy. VALERIE
== END 2018-04-21 00:55 | disposition other institution (70) ==
LOC: MW.ED 00:01
DX: I63.40 Cerebral infarction due to embolism of unspecified cerebral artery (principal); I10 Essential (primary) hypertension; I25.2 Old myocardial infarction; Z86.73 Personal history of transient ischemic attack (TIA), and cerebral infarction without residual deficits; Z88.2 Allergy status to sulfonamides; Z79.82 Long term (current) use of aspirin; Z79.01 Long term (current) use of anticoagulants; Z79.899 Other long term (current) drug therapy; Z88.1 Allergy status to other antibiotic agents
CPT/HCPCS: 36415; 70450; 71045; 80053; 82962; 84443; 84484; 85025; 85610; 85730; 86850; 86900; 86901; 93005; 96374; 96375; 99291; A9270; J0360; J2997; 99284

== ENCOUNTER 2018-07-10 16:28 | Emergency (ER) | payer MEDICAID ==
--- NOTE | 2018-07-10 16:35 | EDM.PDOC ---
ED HPI GENERAL MEDICAL PROBLEM - General Chief Complaint: Neuro Symptoms/Deficits Stated Complaint: LEFT SIDE WEAKNESS Time Seen by Provider: 07/10/18 16:35 Source of Information: Reports: Patient - History of Present Illness INITIAL COMMENTS - FREE TEXT/NARRATIVE: HISTORY AND PHYSICAL: History of present illness: [ Patient presents incarcerated He is here for medical clearance Patient has stroke history is complaining of left-sided weakness unchanged from previous or stroke code was called on his arrival as he was complaining of the left sided weakness With learning this the law-enforcement have released him to personal recognizance, as soon as he was released he requested to call his or his home closed as he would be leaving He is changing is closed without any difficulty Stroke scale was 5 improved from March, patient states he did have an increase in weakness on Monday but was not evaluated as he did not feel like coming in he is on aspirin and Plavix already He has no symptoms such as fever nausea vomiting chills sweats no chest pain shortness breath headache dizziness palpitation about a urine symptoms ] Review of systems: As per history of present illness and below otherwise all systems reviewed and negative. Past medical history: As per history of present illness and as reviewed below otherwise noncontributory. Surgical history: As per history of present illness and as reviewed below otherwise noncontributory. Social history: No reported history of drug or alcohol abuse. Family history: As per history of present illness and as reviewed below otherwise noncontributory. Physical exam: HEENT: Atraumatic, normocephalic, pupils reactive, negative for conjunctival pallor or scleral icterus, mucous membranes moist, throat clear, neck supple, nontender, trachea midline. Lungs: Clear to auscultation, breath sounds equal bilaterally, chest nontender. Heart: S1S2, regular, negative for clicks, rubs, or JVD. Abdomen: Soft, nondistended, nontender. Negative for masses or hepatosplenomegaly. Negative for costovertebral tenderness. Pelvis: Stable nontender. Genitourinary: Deferred. Rectal: Deferred. Extremities: Atraumatic, negative for cords or calf pain. Neurovascular unremarkable. Neuro: Awake, alert, oriented. Cranial nerves II through XII unremarkable. Cerebellum unremarkable. Motor and sensory unremarkable throughout. Exam nonfocal. Post personal recognizance designation via police force He does use a walker to ambulate to the bathroom on his own this is his baseline Diagnostics: [CBC CMP UA INR troponin EKG Chest [address] no contrast ] Therapeutics: Patient with a was offered admission for observation however forwarded after transfer patient refused [ patient requests discharge as he was released from police custody on personal recognizance ]Patient actually eloped shortly after the police left without waiting for lab Impression: [ history of stroke Malingering] Definitive disposition and diagnosis as appropriate pending reevaluation and review of above. Left eye Pain Score (Numeric/FACES): 3 - Related Data Allergies Allergy/AdvReac Type Severity Reaction Status Date / Time Sulfa (Sulfonamide Allergy Severe Anaphylactic Verified 04/21/18 00:26 Antibiotics) Shock amoxicillin Allergy Mild Hives Verified 04/21/18 00:26 coconut oil Allergy Mild Cannot Verified 04/21/18 00:26 Remember Home Meds: Home Meds Aspirin [Ecotrin] 325 mg PO DAILY tab.ec 08/17/17 [Rx] Clopidogrel [Plavix] 75 mg PO DAILY 10 Days #10 tablet 01/09/18 [Rx] atorvaSTATin [Lipitor] 80 mg PO BEDTIME 02/05/18 [History] Meclizine [Antivert] 25 mg PO TID PRN #30 tab.chew 02/06/18 [Rx] Glycopyrrolate/Formoterol Fum [Bevespi Aerosphere Inhaler] 1 inh IN BID [History] Lisinopril 20 mg PO BID 03/22/18 [History] Metoprolol Tartrate 25 mg PO BID 03/22/18 [History] amLODIPine Besylate [Amlodipine Besylate] 5 mg PO DAILY 04/21/18 [History] Past Medical History - Past Health History Medical/Surgical History: Denies Medical/Surgical History HEENT History: Reports: Impaired Vision, Other (See Below) 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 Cardiovascular History: Reports: Hypertension, [place] Other Cardiovascular History: [place] 2012 Respiratory History: Reports: Other (See Below) Other Respiratory History: chronic smoker Gastrointestinal History: Reports: None Genitourinary History: Reports: None Musculoskeletal History: Reports: None Neurological History: Reports: CVA, Headaches, Chronic, TIA Other Neuro History: CVA 2016 Psychiatric History: Reports: Other (See Below) Other Psychiatric History: Impaired decision making, less able to care for himself after CVA. Endocrine/Metabolic History: Reports: None Hematologic History: Reports: None Immunologic History: Reports: None Oncologic (Cancer) History: Reports: None Dermatologic History: Reports: None - Infectious Disease History Infectious Disease History: Reports: Chicken Pox, Measles, Mumps - Past Surgical History Head Surgeries/Procedures: Reports: None HEENT Surgical History: Reports: None Respiratory Surgical History: Reports: None GI Surgical History: Reports: Hernia, Inguinal Male Surgical History: Reports: None Endocrine Surgical History: Reports: None Neurological Surgical History: Reports: None Musculoskeletal Surgical History: Reports: None Social & Family History - Family History Family Medical History: Noncontributory - Caffeine Use Caffeine Use: Reports: Coffee Caffeine Use Comment: 3 cups daily ED ROS GENERAL - Review of Systems Review Of Systems: See Below ED EXAM, GENERAL - Physical Exam Exam: See Below Course - Vital Signs Last Recorded V/S: Last Vital Signs Temp 97.4 F 07/10/18 16:30 Pulse 95 07/10/18 16:30 Resp 16 07/10/18 16:30 BP 196/91 H 07/10/18 16:30 Pulse Ox 97 07/10/18 16:30 - Orders/Labs/Meds Orders: Active Orders 24 hr Category Date Time Status Chest 1V Frontal [CR] Stat Exams 07/10/18 16:34 Taken Head wo Cont [CT] Stat Exams 07/10/18 16:34 Taken CBC WITH AUTO DIFF [HEME] Stat Lab 07/10/18 17:21 Received COMPREHENSIVE METABOLIC PN,CMP [CHEM] Stat Lab 07/10/18 17:21 Received ETHANOL BLOOD MEDICAL [CHEM] Stat Lab 07/10/18 17:21 Received INR,PT,PROTHROMBIN TIME [COAG] Stat Lab 07/10/18 17:21 Received TROPONIN I [CHEM] Stat Lab 07/10/18 17:21 Received Labs: Laboratory Tests 07/10/18 07/10/18 Range/Units 17:12 17:12 Urine Color YELLOW Urine Appearance CLEAR Urine pH 6.0 (5.0-8.0) Ur Specific Foster 1.025 (1.001-1.035) Urine Protein NEGATIVE (NEGATIVE) mg/dL Urine Glucose (UA) NEGATIVE (NEGATIVE) mg/dL Urine Ketones NEGATIVE (NEGATIVE) mg/dL Urine Occult Blood NEGATIVE (NEGATIVE) Urine Nitrite NEGATIVE (NEGATIVE) Urine Bilirubin NEGATIVE (NEGATIVE) Urine Urobilinogen 1.0 (<2.0) EU/dL Ur Leukocyte Esterase NEGATIVE (NEGATIVE) Urine RBC 0-1 (0-2/HPF) Urine WBC 0-2 (0-5/HPF) Ur Epithelial Cells OCCASIONAL (NONE-FEW) Urine Bacteria RARE (NEGATIVE) Urine Mucus LIGHT (NONE-MOD) Urine Opiates Screen NEGATIVE (NEGATIVE) Ur Oxycodone Screen NEGATIVE (NEGATIVE) Urine Methadone Screen NEGATIVE (NEGATIVE) Ur Barbiturates Screen NEGATIVE (NEGATIVE) Ur Phencyclidine Scrn NEGATIVE (NEGATIVE) Ur Amphetamine Screen NEGATIVE (NEGATIVE) U Methamphetamines Scrn POSITIVE (NEGATIVE) U Benzodiazepines Scrn NEGATIVE (NEGATIVE) U Cocaine Metab Screen NEGATIVE (NEGATIVE) U Marijuana (THC) Screen NEGATIVE (NEGATIVE) Departure - Departure Time of Disposition: 17:41 Disposition: Eloped 07 Condition: Good Clinical Impression: Encounter for medical screening examination - Discharge Information Referrals: PCP,None [Primary Care Provider] - Forms: ED Department Discharge Additional Instructions: The following information is given to patients seen in the emergency department who are being discharged to home. This information is to outline your options for follow-up care. We provide all patients seen in our emergency department with a follow-up referral. The need for follow-up, as well as the timing and circumstances, are variable depending upon the specifics of your emergency department visit. If you don't have a primary care physician on staff, we will provide you with a referral. We always advise you to contact your personal physician following an emergency department visit to inform them of the circumstance of the visit and for follow-up with them and/or the need for any referrals to a consulting specialist. The emergency department will also refer you to a specialist when appropriate. This referral assures that you have the opportunity for follow-up care with a specialist. All of these measure are taken in an effort to provide you with optimal care, which includes your follow-up. Under all circumstances we always encourage you to contact your private physician who remains a resource for coordinating your care. When calling for follow-up care, please make the office aware that this follow-up is from your recent emergency room visit. If for any reason you are refused follow-up, please contact the [facility] emergency department at and asked to speak to the emergency department charge nurse. - My Orders Last 24 Hours: My Active Orders 07/10/18 16:34 Chest 1V Frontal [CR] Stat Head wo Cont [CT] Stat 07/10/18 17:21 CBC WITH AUTO DIFF [HEME] Stat COMPREHENSIVE METABOLIC PN,CMP [CHEM] Stat ETHANOL BLOOD MEDICAL [CHEM] Stat INR,PT,PROTHROMBIN TIME [COAG] Stat TROPONIN I [CHEM] Stat - Assessment/Plan Last 24 Hours: My Active Orders 07/10/18 16:34 Chest 1V Frontal [CR] Stat Head wo Cont [CT] Stat 07/10/18 17:21 CBC WITH AUTO DIFF [HEME] Stat COMPREHENSIVE METABOLIC PN,CMP [CHEM] Stat ETHANOL BLOOD MEDICAL [CHEM] Stat INR,PT,PROTHROMBIN TIME [COAG] Stat TROPONIN I [CHEM] Stat
[2018-07-10 17:28] VITALS: BP 196/91
[2018-07-10 18:09] LABS: CHLORIDE,CL 105 mmol/L (98-107); SODIUM,NA 142 mmol/L (136-148)
--- NOTE | 2018-07-11 09:30 | CT ---
EXAM DATE: 07/10/18 PATIENT'S AGE: 63 Patient: LANA BAÑUELOS Facility: [place], [place] Site . Site : 1955 Study: CT Head STROKE PROTOCOL [id number]/25/2018 4:48:16 PM Ordering Physician: Misael Ordonez Final Report: INDICATION: Stroke TECHNIQUE: Head CT without contrast. COMPARISON: 04/21/2018 FINDINGS: CSF spaces: Within normal limits for age. Brain parenchyma: Stable right frontal lobe encephalomalacia. New area of encephalomalacia is in the posterior left frontal lobe. No sign of acute CVA. No sign of mass, hemorrhage, or midline shift. Skull base and calvarium: The visualized paranasal sinuses and mastoid air cells demonstrate no acute or significant findings. The visualized orbits are grossly unremarkable. No skull fractures. IMPRESSION: No sign of acute CVA. New small area of encephalomalacia in the posterior left frontal lobe consistent with a relatively recent infarct. No hemorrhage. No other significant finding or change. Please note that all CT scans at this facility use dose modulation, iterative reconstruction, and/or weight-based dosing when appropriate to reduce radiation dose to as low as reasonably achievable. Dictated by Pedrito Shetty MD @ Jul 10 2018 4:50PM (Electronic Signature) Report Signed by Proxy. MTDD
--- NOTE | 2018-07-11 09:31 | CR ---
EXAM DATE: 07/10/18 PATIENT'S AGE: 63 Patient: LANA BAÑUELOS Facility: [place], [place] Site . Site : 1955 Study: XRay Chest [id number]/25/2018 4:56:52 PM Ordering Physician: Misael Ordonez Final Report: INDICATION: Stroke. Left-sided numbness. TECHNIQUE: Portable chest. COMPARISON: 04/21/2018 Findings : The heart and pulmonary vasculature are unchanged. Lungs are clear. No consolidations or pleural effusions are identified. Trachea is midline. There is osteophytic spurring from the thoracic spine. IMPRESSION: No evidence of acute disease. Dictated by Ronni Martínez MD @ Jul 10 2018 5:19PM (Electronic Signature) Report Signed by Proxy. [facility]
== END 2018-07-10 17:40 | disposition left against medical advice (07) ==
LOC: MW.ED 16:28
DX: I69.354 Hemiplegia and hemiparesis following cerebral infarction affecting left non-dominant side (principal); Z76.5 Malingerer [conscious simulation]; I10 Essential (primary) hypertension; I25.2 Old myocardial infarction; Z79.82 Long term (current) use of aspirin; Z79.899 Other long term (current) drug therapy; Z88.1 Allergy status to other antibiotic agents
CPT/HCPCS: 36415; 70450; 71045; 80053; 80305; 81001; 82962; 84484; 85025; 85610; 99285; G0480

== ENCOUNTER 2018-12-07 21:30 | Emergency (ER) | payer MEDICAID, OTHER ==
--- NOTE | 2018-12-07 21:39 | EDM.PDOC ---
ED HPI GENERAL MEDICAL PROBLEM - General Stated Complaint: PAIN IN BOTH FEET Time Seen by Provider: 12/07/18 21:39 Source of Information: Reports: Patient - History of Present Illness INITIAL COMMENTS - FREE TEXT/NARRATIVE: HISTORY AND PHYSICAL: History of present illness: [A shunt presents with 5 out of 10 pain to his distal toes on both feet, he lives in his car whether he currently does not have work is on SSI he is not from [place] and his is now working at their living in the car through the cold weather He's had pain in his toes for 2 weeks they do run the car intermittently every couple of hours However some point he is frustrated in his feet mildly does have circulation does have some redness around the nail beds and his toes are tender to the touch however he does have full circulation no fever nausea vomiting chills sweats no open lesion ] Review of systems: As per history of present illness and below otherwise all systems reviewed and negative. Past medical history: As per history of present illness and as reviewed below otherwise noncontributory. Surgical history: As per history of present illness and as reviewed below otherwise noncontributory. Social history: No reported history of drug or alcohol abuse. Family history: As per history of present illness and as reviewed below otherwise noncontributory. Physical exam: HEENT: Atraumatic, normocephalic, pupils reactive, negative for conjunctival pallor or scleral icterus, mucous membranes moist, throat clear, neck supple, nontender, trachea midline. Lungs: Clear to auscultation, breath sounds equal bilaterally, chest nontender. Heart: S1S2, regular, negative for clicks, rubs, or JVD. Abdomen: Soft, nondistended, nontender. Negative for masses or hepatosplenomegaly. Negative for costovertebral tenderness. Pelvis: Stable nontender. Genitourinary: Deferred. Rectal: Deferred. Extremities: Atraumatic, negative for cords or calf pain. Neurovascular unremarkable. Neuro: Awake, alert, oriented. Cranial nerves II through XII unremarkable. Cerebellum unremarkable. Motor and sensory unremarkable throughout. Exam nonfocal. Kin as per history of present illness Diagnostics: [Ankle-brachial index performed bilateral CBC uric acid A1c ] Therapeutics: [water soaks I did suggest renting a hotel room f 1-2 weeks keeping his feet warm As well as [place] since he is not actually working here and living in his car which he is in agreement with Follow-up with primary care in 2 weeks ] Impression: [ bilateral foot pain ] Definitive disposition and diagnosis as appropriate pending reevaluation and review of above. Bilateral Feet Pain Score (Numeric/FACES): 6 - Related Data Allergies Allergy/AdvReac Type Severity Reaction Status Date / Time Sulfa (Sulfonamide Allergy Severe Anaphylactic Verified 04/21/18 00:26 Antibiotics) Shock amoxicillin Allergy Mild Hives Verified 04/21/18 00:26 coconut oil Allergy Mild Cannot Verified 04/21/18 00:26 Remember Home Meds: Home Meds Clopidogrel [Plavix] 75 mg PO DAILY 12/07/18 [History] atorvaSTATin [Lipitor] 80 mg PO BEDTIME 12/07/18 [History] Past Medical History - Past Health History Medical/Surgical History: Denies Medical/Surgical History HEENT History: Reports: Impaired Vision, Other (See Below) 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 Cardiovascular History: Reports: Hypertension, [place] Other Cardiovascular History: [place] 2012 Respiratory History: Reports: Other (See Below) Other Respiratory History: chronic smoker Gastrointestinal History: Reports: None Genitourinary History: Reports: None Musculoskeletal History: Reports: None Neurological History: Reports: CVA, Headaches, Chronic, TIA Other Neuro History: CVA 2016 Psychiatric History: Reports: Other (See Below) Other Psychiatric History: Impaired decision making, less able to care for himself after CVA. Endocrine/Metabolic History: Reports: None Hematologic History: Reports: None Immunologic History: Reports: None Oncologic (Cancer) History: Reports: None Dermatologic History: Reports: None - Infectious Disease History Infectious Disease History: Reports: Chicken Pox, Measles, Mumps - Past Surgical History Head Surgeries/Procedures: Reports: None HEENT Surgical History: Reports: None Respiratory Surgical History: Reports: None GI Surgical History: Reports: Hernia, Inguinal Male Surgical History: Reports: None Endocrine Surgical History: Reports: None Neurological Surgical History: Reports: None Musculoskeletal Surgical History: Reports: None Social & Family History - Family History Family Medical History: Noncontributory - Caffeine Use Caffeine Use: Reports: Coffee Caffeine Use Comment: 3 cups daily ED ROS GENERAL - Review of Systems Review Of Systems: See Below ED EXAM, GENERAL - Physical Exam Exam: See Below Course - Vital Signs Last Recorded V/S: Last Vital Signs Temp 98.1 F 12/07/18 22:41 Pulse 74 12/07/18 22:41 Resp 18 12/07/18 22:41 BP 189/97 H 12/07/18 22:41 Pulse Ox 94 L 12/07/18 22:41 - Orders/Labs/Meds Orders: Active Orders 24 hr Category Date Time Status Accu Check [Blood Glucose Check, Bedside] [RC] ONETIME Care 12/07/18 21:46 Active Labs: Laboratory Tests 12/07/18 12/07/18 12/07/18 Range/Units 21:53 22:24 22:24 WBC 8.87 (4.0-11.0) K/uL RBC 4.51 (4.50-5.90) M/uL Hgb 13.5 (13.0-17.0) g/dL Hct 39.5 (38.0-50.0) % MCV 87.6 (80.0-98.0) fL MCH 29.9 (27.0-32.0) pg MCHC 34.2 (31.0-37.0) g/dL RDW Std Deviation 45.0 (28.0-62.0) fl RDW Coeff of Nubia 14 (11.0-15.0) % Plt Count 216 (150-400) K/uL MPV 10.60 (7.40-12.00) fL Neut % (Auto) 61.1 (48.0-80.0) % Lymph % (Auto) 24.5 (16.0-40.0) % Dawes % (Auto) 8.0 (0.0-15.0) % Eos % (Auto) 5.3 (0.0-7.0) % Baso % (Auto) 1.1 (0.0-1.5) % Neut # (Auto) 5.4 (1.4-5.7) K/uL Lymph # (Auto) 2.2 (0.6-2.4) K/uL Dawes # (Auto) 0.7 (0.0-0.8) K/uL Eos # (Auto) 0.5 (0.0-0.7) K/uL Baso # (Auto) 0.1 (0.0-0.1) K/uL Nucleated RBC % 0.0 /100WBC Nucleated RBCs # 0 K/uL POC Glucose 155 H (60-110) mg/dL Hemoglobin A1c (4.5-6.2) % Uric Acid 6.6 (2.6-7.2) mg/dL 12/07/18 Range/Units 22:24 WBC (4.0-11.0) K/uL RBC (4.50-5.90) M/uL Hgb (13.0-17.0) g/dL Hct (38.0-50.0) % MCV (80.0-98.0) fL MCH (27.0-32.0) pg MCHC (31.0-37.0) g/dL RDW Std Deviation (28.0-62.0) fl RDW Coeff of Nubia (11.0-15.0) % Plt Count (150-400) K/uL MPV (7.40-12.00) fL Neut % (Auto) (48.0-80.0) % Lymph % (Auto) (16.0-40.0) % Dawes % (Auto) (0.0-15.0) % Eos % (Auto) (0.0-7.0) % Baso % (Auto) (0.0-1.5) % Neut # (Auto) (1.4-5.7) K/uL Lymph # (Auto) (0.6-2.4) K/uL Dawes # (Auto) (0.0-0.8) K/uL Eos # (Auto) (0.0-0.7) K/uL Baso # (Auto) (0.0-0.1) K/uL Nucleated RBC % /100WBC Nucleated RBCs # K/uL POC Glucose (60-110) mg/dL Hemoglobin A1c 5.8 (4.5-6.2) % Uric Acid (2.6-7.2) mg/dL Departure - Departure Time of Disposition: 00:18 Disposition: Home, Self-Care 01 Condition: Good Clinical Impression: [place] - Discharge Information Referrals: PCP,None [Primary Care Provider] - Additional Instructions: The following information is given to patients seen in the emergency department who are being discharged to home. This information is to outline your options for follow-up care. We provide all patients seen in our emergency department with a follow-up referral. The need for follow-up, as well as the timing and circumstances, are variable depending upon the specifics of your emergency department visit. If you don't have a primary care physician on staff, we will provide you with a referral. We always advise you to contact your personal physician following an emergency department visit to inform them of the circumstance of the visit and for follow-up with them and/or the need for any referrals to a consulting specialist. The emergency department will also refer you to a specialist when appropriate. This referral assures that you have the opportunity for follow-up care with a specialist. All of these measure are taken in an effort to provide you with optimal care, which includes your follow-up. Under all circumstances we always encourage you to contact your private physician who remains a resource for coordinating your care. When calling for follow-up care, please make the office aware that this follow-up is from your recent emergency room visit. If for any reason you are refused follow-up, please contact the [facility] emergency department at and asked to speak to the emergency department charge nurse. - My Orders Last 24 Hours: My Active Orders 12/07/18 21:46 Accu Check [Blood Glucose Check, Bedside] [RC] ONETIME - Assessment/Plan Last 24 Hours: My Active Orders 12/07/18 21:46 Accu Check [Blood Glucose Check, Bedside] [RC] ONETIME
[2018-12-07 22:43] LABS: HEMOGLOBIN A1C 5.8 % (4.5-6.2)
--- NOTE | 2018-12-07 23:42 | US ---
--- Preliminary Report --- Prelim: No images sent. Tech impression states: LIZ Left 172/190 0.9 LIZ Right 180/190 0.9 Dorsalis Pedis Left 156 Dorsalis Pedis Right [address] Shefali Maloney @ Dec 07 2018 11:40PM --- Preliminary Report ---
[2018-12-08 00:29] VITALS: BP 190/92
== END 2018-12-08 00:25 | disposition home or self-care (01) ==
LOC: MW.ED 21:30
DX: T33.822A Superficial frostbite of left foot, initial encounter (principal); T33.821A Superficial frostbite of right foot, initial encounter; I10 Essential (primary) hypertension; I25.2 Old myocardial infarction; Z88.2 Allergy status to sulfonamides; Z88.1 Allergy status to other antibiotic agents; Z79.899 Other long term (current) drug therapy; Z79.01 Long term (current) use of anticoagulants; X31.XXXA Exposure to excessive natural cold, initial encounter
CPT/HCPCS: 36415; 82962; 83036; 84550; 85025; 93922; 99283; 99284-25

== ENCOUNTER 2018-12-10 13:11 | Emergency (ER) | payer MEDICAID ==
--- NOTE | 2018-12-10 13:27 | EDM.PDOC ---
ED HPI GENERAL MEDICAL PROBLEM - General Chief Complaint: Head Injury Stated Complaint: STOKE Time Seen by Provider: 12/10/18 13:26 Source of Information: Reports: Patient, Family History Limitations: Reports: No Limitations - History of Present Illness INITIAL COMMENTS - FREE TEXT/NARRATIVE: HISTORY AND PHYSICAL: History of present illness: Patient is a 63-year-old male here with complaint of dizziness and fall with head injury. Trauma code was called as patient is on Plavix for CVA. Patient states that he began to feel dizzy when he fell hitting the right side of his head on a snow bank. Denies loss of consciousness. 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 He reports headache since the fall. He denies chest pain, shortness of breath, fevers, chills, nausea, vomiting, diarrhea, cough, abdominal pain, urinary or bowel symptoms. BP 225/121 on arrival. He was previously on BP medication but has not been taking it for months. Patient later reports that he believes he might have had the headache prior to hitting his head. Review of systems: As per history of present illness and below otherwise all systems reviewed and negative. Past medical history: As per history of present illness and as reviewed below otherwise noncontributory. Surgical history: As per history of present illness and as reviewed below otherwise noncontributory. Social history: No reported history of drug or alcohol abuse. Family history: As per history of present illness and as reviewed below otherwise noncontributory. Physical exam: General: Patient sitting comfortably in no acute distress and nontoxic appearing HEENT: Atraumatic, normocephalic, pupils reactive, negative for conjunctival pallor or scleral icterus, mucous membranes moist, throat clear, neck supple, nontender, trachea midline. No meningeal signs. Lungs: Clear to auscultation, breath sounds equal bilaterally, chest nontender. Heart: S1S2, regular, negative for clicks, rubs, or overt murmur. Abdomen: Soft, nondistended, nontender. Negative for masses or hepatosplenomegaly. Negative for costovertebral tenderness. Pelvis: Stable nontender. Genitourinary: Deferred. Rectal: Deferred. Extremities: Atraumatic, negative for cords or calf pain. Neurovascular unremarkable. Neuro: Awake, alert, oriented. Cerebellum unremarkable. Motor and sensory unremarkable throughout. Left sided weakness noted, unable to lift arm or leg off bed. Mechanical Cad Drafter strength on left 3/5 compared to 5/5 on right. Left visual field deficit on exam. Notes: Blood pressure is improved to 196/107. Patient reports headache is better and denies dizziness. Diagnostics: CBC, CMP, PT/INR, troponin, EKG, Head CT Therapeutics: Labetolol 20mg IV Hydralazine 10mg IV Morphine 2mg IV Prescriptions: Metoprolol Impression: Hypertensive urgency, head injury Plan: 1. Take medication as instructed 2. Follow up with primary care provider 3. Return to ED as needed as discussed Definitive disposition and diagnosis as appropriate pending reevaluation and review of above. Headache Pain Score (Numeric/FACES): 8 - Related Data Allergies Allergy/AdvReac Type Severity Reaction Status Date / Time Sulfa (Sulfonamide Allergy Severe Anaphylactic Verified 12/10/18 13:58 Antibiotics) Shock amoxicillin Allergy Mild Hives Verified 12/10/18 13:58 coconut oil Allergy Mild Cannot Verified 12/10/18 13:58 Remember Home Meds: Home Meds Clopidogrel [Plavix] 75 mg PO DAILY 12/07/18 [History] atorvaSTATin [Lipitor] 80 mg PO BEDTIME 12/07/18 [History] Metoprolol Tartrate 25 mg PO BID #30 tablet 12/10/18 [Rx] Past Medical History - Past Health History Medical/Surgical History: Denies Medical/Surgical History HEENT History: Reports: Impaired Vision, Other (See Below) 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 Cardiovascular History: Reports: Hypertension, [place] Other Cardiovascular History: [place] 2012 Respiratory History: Reports: Other (See Below) Other Respiratory History: chronic smoker Gastrointestinal History: Reports: None Genitourinary History: Reports: None Musculoskeletal History: Reports: None Neurological History: Reports: CVA, Headaches, Chronic, TIA Other Neuro History: CVA 2016 Psychiatric History: Reports: Other (See Below) Other Psychiatric History: Impaired decision making, less able to care for himself after CVA. Endocrine/Metabolic History: Reports: None Hematologic History: Reports: None Immunologic History: Reports: None Oncologic (Cancer) History: Reports: None Dermatologic History: Reports: None - Infectious Disease History Infectious Disease History: Reports: Chicken Pox, Measles, Mumps - Past Surgical History Head Surgeries/Procedures: Reports: None HEENT Surgical History: Reports: None Respiratory Surgical History: Reports: None GI Surgical History: Reports: Hernia, Inguinal Male Surgical History: Reports: None Endocrine Surgical History: Reports: None Neurological Surgical History: Reports: None Musculoskeletal Surgical History: Reports: None Social & Family History - Family History Family Medical History: Noncontributory - Caffeine Use Caffeine Use: Reports: Coffee Caffeine Use Comment: 3 cups daily ED ROS GENERAL - Review of Systems Review Of Systems: ROS reveals no pertinent complaints other than HPI. ED EXAM, HEAD INJURY - Physical Exam Exam: See Below (see dictation) Course - Vital Signs Last Recorded V/S: Last Vital Signs Temp 97.5 F 12/10/18 13:19 Pulse 82 12/10/18 13:19 Resp 18 12/10/18 13:19 BP 223/121 H 12/10/18 13:19 Pulse Ox 97 12/10/18 13:19 - Orders/Labs/Meds Orders: Active Orders 24 hr Category Date Time Status EKG Documentation Completion [RC] STAT Care 12/10/18 13:17 Active Labs: Laboratory Tests 12/10/18 12/10/18 12/10/18 Range/Units 13:44 13:44 13:44 WBC 10.20 (4.0-11.0) K/uL RBC 4.89 (4.50-5.90) M/uL Hgb 14.8 (13.0-17.0) g/dL Hct 42.4 (38.0-50.0) % MCV 86.7 (80.0-98.0) fL MCH 30.3 (27.0-32.0) pg MCHC 34.9 (31.0-37.0) g/dL RDW Std Deviation 43.7 (28.0-62.0) fl RDW Coeff of Nubia 14 (11.0-15.0) % Plt Count 232 (150-400) K/uL MPV 10.40 (7.40-12.00) fL Neut % (Auto) 60.7 (48.0-80.0) % Lymph % (Auto) 26.2 (16.0-40.0) % Coleman % (Auto) 7.6 (0.0-15.0) % Eos % (Auto) 4.4 (0.0-7.0) % Baso % (Auto) 1.1 (0.0-1.5) % Neut # (Auto) 6.2 H (1.4-5.7) K/uL Lymph # (Auto) 2.7 H (0.6-2.4) K/uL Coleman # (Auto) 0.8 (0.0-0.8) K/uL Eos # (Auto) 0.5 (0.0-0.7) K/uL Baso # (Auto) 0.1 (0.0-0.1) K/uL Nucleated RBC % 0.0 /100WBC Nucleated RBCs # 0 K/uL INR 1.02 Sodium 141 (136-148) mmol/L Potassium 3.4 L (3.5-5.1) mmol/L Chloride 105 (98-107) mmol/L Carbon Dioxide 28.0 (21.0-32.0) mmol/L BUN 21 H (7.0-18.0) mg/dL Creatinine 1.5 H (0.8-1.3) mg/dL Est Cr Clr Drug Dosing 51.72 mL/min Estimated GFR (MDRD) 47.6 ml/min Glucose 102 (74-106) mg/dL Calcium 9.7 (8.5-10.1) mg/dL Total Bilirubin 0.4 (0.2-1.0) mg/dL AST 18 (15-37) IU/L ALT 27 (14-63) IU/L Alkaline Phosphatase 128 H (46-116) U/L Troponin I < 0.050 (0.000-0.056) ng/mL Total Protein 7.4 (6.4-8.2) g/dL Albumin 3.4 (3.4-5.0) g/dL Globulin 4.0 (2.6-4.0) g/dL Albumin/Globulin Ratio 0.9 (0.9-1.6) Meds: Medications Discontinued Medications Generic Name Dose Route Start Last Admin Trade Name Freq PRN Reason Stop Dose Admin Hydralazine HCl 10 mg 12/10/18 15:00 12/10/18 15:23 Apresoline IVPUSH 12/10/18 15:01 10 mg ONETIME ONE Administration Labetalol HCl 20 mg 12/10/18 14:16 02/25/19 14:29 Normodyne IVPUSH 12/10/18 14:17 20 mg NOW ONE Administration Protocol Morphine Sulfate 2 mg 12/10/18 14:25 12/10/18 14:35 Morphine IVPUSH 12/10/18 14:26 2 mg ONETIME ONE Administration Departure - Departure Time of Disposition: 15:53 Disposition: Home, Self-Care 01 Condition: Good Clinical Impression: Head injury Hypertension Qualifiers: Hypertension type: unspecified secondary hypertension Qualified Code(s): I15.9 - Secondary hypertension, unspecified - Discharge Information Prescriptions: Metoprolol Tartrate 25 mg PO BID #30 tablet Referrals: PCP,None [Primary Care Provider] - Forms: ED Department Discharge Additional Instructions: The following information is given to patients seen in the emergency department who are being discharged to home. This information is to outline your options for follow-up care. We provide all patients seen in our emergency department with a follow-up referral. The need for follow-up, as well as the timing and circumstances, are variable depending upon the specifics of your emergency department visit. If you don't have a primary care physician on staff, we will provide you with a referral. We always advise you to contact your personal physician following an emergency department visit to inform them of the circumstance of the visit and for follow-up with them and/or the need for any referrals to a consulting specialist. The emergency department will also refer you to a specialist when appropriate. This referral assures that you have the opportunity for follow-up care with a specialist. All of these measure are taken in an effort to provide you with optimal care, which includes your follow-up. Under all circumstances we always encourage you to contact your private physician who remains a resource for coordinating your care. When calling for follow-up care, please make the office aware that this follow-up is from your recent emergency room visit. If for any reason you are refused follow-up, please contact the [facility] Emergency Department at and asked to speak to the emergency department charge nurse. [facility] [address] [place] [id number] 1. Take medication as instructed 2. Follow up with primary care provider 3. Return to ED as needed as discussed - My Orders Last 24 Hours: My Active Orders 12/10/18 13:17 EKG Documentation Completion [RC] STAT - Assessment/Plan Last 24 Hours: My Active Orders 12/10/18 13:17 EKG Documentation Completion [RC] STAT
--- NOTE | 2018-12-10 14:11 | CT ---
EXAMINATION: Non contrast CT head. Coronal and sagittal reformats. HISTORY: Pain Comparison: MRI dated 11/29/2018. FINDINGS: No evidence of intra or extra axial hemorrhage, mass, midline shift, hydrocephalus or edema. Small areas of encephalomalacia within the right frontal region and within the left frontal parietal region, unchanged. No hypoattenuation changes in the major vascular territories to suggest acute infarct. No abnormal intracranial calcifications are detected. No evidence of substantial vascular calcifications. Mild mucosal thickening noted within the paranasal sinuses. Mastoid air cells and middle ears are clear. Orbits and globes are symmetric. Pituitary fossa appears unremarkable. Calvarium is intact. No evidence of skull fracture. IMPRESSION: 1. No acute intracranial findings. 2. Old small right cortical infarcts within the right frontal and left frontal/parietal regions.
[2018-12-10] MEDS ORDERED: Labetalol 20 MG/4 ML Syringe IVPUSH ONE (14:16)
[2018-12-10 14:20] LABS: CHLORIDE,CL 105 mmol/L (98-107); SODIUM,NA 141 mmol/L (136-148)
[2018-12-10] MEDS ORDERED: Morphine 2 MG/ML Syringe IVPUSH ONE (14:25)
[2018-12-10] MEDS ORDERED: hydrALAZINE 20 MG/ML SDV IVPUSH ONE (15:00)
[2018-12-10 18:54] VITALS: BP 188/100
== END 2018-12-10 16:37 | disposition home or self-care (01) ==
LOC: MW.ED 13:11
DX: S09.90XA Unspecified injury of head, initial encounter (principal); I16.0 Hypertensive urgency; I10 Essential (primary) hypertension; I69.954 Hemiplegia and hemiparesis following unspecified cerebrovascular disease affecting left non-dominant side; I25.2 Old myocardial infarction; Z79.899 Other long term (current) drug therapy; Z88.1 Allergy status to other antibiotic agents; Z88.2 Allergy status to sulfonamides; Z91.018 Allergy to other foods; Z79.02 Long term (current) use of antithrombotics/antiplatelets; W01.198A Fall on same level from slipping, tripping and stumbling with subsequent striking against other object, initial encounter
CPT/HCPCS: 36415; 70450; 80053; 84484; 85025; 85610; 93005; 96374; 96375; 99284; J0360; J2270; J3490

== ENCOUNTER 2018-12-28 15:35 | Inpatient (IN) | payer MEDICAID, OTHER ==
[2018-12-28] MEDS ORDERED: Sodium Chloride 0.9% 10 ML SDV IV PRN (15:36)
[2018-12-28] MEDS ORDERED: Sodium Chloride 0.9% 2.5 ML Syringe FLUSH PRN (15:36)
[2018-12-28] MEDS ORDERED: Sodium Chloride 0.9% 10 ML Syringe FLUSH PRN (15:36)
--- NOTE | 2018-12-28 15:41 | EDM.PDOC ---
<Jesica Bingham - Last Filed: 12/28/18 15:54> ED HPI GENERAL MEDICAL PROBLEM - General Chief Complaint: Neuro Symptoms/Deficits Stated Complaint: STROKE Time Seen by Provider: 12/28/18 15:36 Source of Information: Reports: EMS History Limitations: Reports: No Limitations - History of Present Illness INITIAL COMMENTS - FREE TEXT/NARRATIVE: History of present illness: []Patient history of hypertension and a previous stroke in August 2017 was walking home at 3 PM when he started having right hand numbness, left-sided facial numbness and slurred speech. He denied any headache, chest pain or blurry vision. He walked into a [employer] par[employer] and called 911. Glucose on scene was 127, EMS stated he had a right arm drift on exam. He has had a stroke in the past out residual deficits. Review of systems: As per history of present illness and below otherwise all systems reviewed and negative. Past medical history: As per history of present illness and as reviewed below otherwise noncontributory. Surgical history: As per history of present illness and as reviewed below otherwise noncontributory. Social history: No reported history of drug or alcohol abuse. Family history: As per history of present illness and as reviewed below otherwise noncontributory. Physical exam: General: Well developed, well nourished in NAD HEENT: Atraumatic, normocephalic, pupils reactive, negative for conjunctival pallor or scleral icterus, mucous membranes moist, throat clear, neck supple, nontender, trachea midline. Lungs: Clear to auscultation, breath sounds equal bilaterally, chest nontender. Heart: S1S2, regular, negative for clicks, rubs, or JVD. Abdomen: NABS, Soft, nondistended, nontender. Negative for masses or hepatosplenomegaly. Negative for costovertebral tenderness. Pelvis: Stable nontender. Genitourinary: Deferred. Rectal: Deferred. Extremities: Atraumatic, negative for cords or calf pain. Neurovascular unremarkable. Neuro: Awake, alert, oriented. Left-sided facial droop. Exam nonfocal. Skin:warm and dry Diagnostics: CT head-right occipital parietal subacute infarct greater than 12 hours to 2 weeks old, EKG, CBC, chemistry, TSH, troponin, coags Therapeutics: ED Course: Impression: Prescriptions: Plan: Definitive disposition and diagnosis as appropriate pending reevaluation and review of above. - Related Data Allergies Allergy/AdvReac Type Severity Reaction Status Date / Time Sulfa (Sulfonamide Allergy Severe Anaphylactic Verified 12/28/18 15:35 Antibiotics) Shock amoxicillin Allergy Mild Hives Verified 12/28/18 15:35 coconut oil Allergy Mild Cannot Verified 12/28/18 15:35 Remember Home Meds: Home Meds Clopidogrel [Plavix] 75 mg PO DAILY 12/07/18 [History] atorvaSTATin [Lipitor] 80 mg PO BEDTIME 12/07/18 [History] Metoprolol Tartrate 25 mg PO BID #30 tablet 12/10/18 [Rx] Past Medical History - Past Health History Medical/Surgical History: Denies Medical/Surgical History HEENT History: Reports: Impaired Vision, Other (See Below) 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 Cardiovascular History: Reports: Hypertension, [place] Other Cardiovascular History: [place] 2012 Respiratory History: Reports: Other (See Below) Other Respiratory History: chronic smoker Gastrointestinal History: Reports: None Genitourinary History: Reports: None Musculoskeletal History: Reports: None Neurological History: Reports: CVA, Headaches, Chronic, TIA Other Neuro History: CVA 2016 Psychiatric History: Reports: Other (See Below) Other Psychiatric History: Impaired decision making, less able to care for himself after CVA. Endocrine/Metabolic History: Reports: None Hematologic History: Reports: None Immunologic History: Reports: None Oncologic (Cancer) History: Reports: None Dermatologic History: Reports: None - Infectious Disease History Infectious Disease History: Reports: Chicken Pox, Measles, Mumps - Past Surgical History Head Surgeries/Procedures: Reports: None HEENT Surgical History: Reports: None Respiratory Surgical History: Reports: None GI Surgical History: Reports: Hernia, Inguinal Male Surgical History: Reports: None Endocrine Surgical History: Reports: None Neurological Surgical History: Reports: None Musculoskeletal Surgical History: Reports: None Social & Family History - Family History Family Medical History: Noncontributory - Caffeine Use Caffeine Use: Reports: Coffee Caffeine Use Comment: 3 cups daily Course - Vital Signs Last Recorded V/S: Last Vital Signs Temp 36.8 C 12/28/18 15:36 Pulse 75 12/28/18 15:36 Resp 18 12/28/18 15:36 BP 208/107 H 12/28/18 15:36 Pulse Ox 92 L 12/28/18 15:36 - Orders/Labs/Meds Orders: Active Orders 24 hr Category Date Time Status Assess Neurological Status [RC] ASDIRECTED Care 12/28/18 15:36 Active Bedrest [RC] ASDIRECTED Care 12/28/18 15:36 Active Cardiac Monitoring [RC] . DIRECTED Care 12/28/18 15:36 Active EKG Documentation Completion [RC] STAT Care 12/28/18 15:36 Active Height and Weight [RC] UPON Care 12/28/18 15:36 Active Initiate Acute Stroke Protocol [RC] STAT Care 12/28/18 15:36 Active NIH Stroke Scale [RC] ASDIRECTED Care 12/28/18 15:36 Active Nursing Bedside Swallow Screen [RC] ASDIRECTED Care 12/28/18 15:36 Active Oxygen Therapy [RC] ASDIRECTED Care 12/28/18 15:36 Active Stroke Education, General [RC] Click to Edit Care 12/28/18 15:36 Active Vital Signs [RC] Q15M Care 12/28/18 15:36 Active COMPREHENSIVE METABOLIC PN,CMP [CHEM] Stat Lab 12/28/18 15:30 Received INR,PT,PROTHROMBIN TIME [COAG] Stat Lab 12/28/18 15:30 Received PTT,PARTIAL THROMBOPLSTIN TIME [COAG] Stat Lab 12/28/18 15:30 Received TROPONIN I [CHEM] Stat Lab 12/28/18 15:30 Received TSH [CHEM] Stat Lab 12/28/18 15:30 Received Sodium Chloride 0.9% [Normal Saline] Med 12/28/18 15:36 Active 10 ml IV ASDIRECTED PRN Sodium Chloride 0.9% [Saline Flush] Med 12/28/18 15:36 Active 10 ml FLUSH ASDIRECTED PRN Sodium Chloride 0.9% [Saline Flush] Med 12/28/18 15:36 Active 2.5 ml FLUSH ASDIRECTED PRN Peripheral IV Insertion Adult [OM.PC] Stat Oth 12/28/18 15:36 Ordered Peripheral IV Insertion Adult [OM.PC] Stat Oth 12/28/18 15:36 Ordered Medication Orders Sodium Chloride (Saline Flush) 10 ml FLUSH ASDIRECTED PRN PRN Reason: Keep Vein Open Sodium Chloride (Saline Flush) 2.5 ml FLUSH ASDIRECTED PRN PRN Reason: Keep Vein Open Sodium Chloride (Normal Saline) 10 ml IV ASDIRECTED PRN PRN Reason: IV Use Labs: Laboratory Tests 12/28/18 Range/Units 15:30 WBC 9.92 (4.0-11.0) K/uL RBC 4.46 L (4.50-5.90) M/uL Hgb 13.3 (13.0-17.0) g/dL Hct 39.0 (38.0-50.0) % MCV 87.4 (80.0-98.0) fL MCH 29.8 (27.0-32.0) pg MCHC 34.1 (31.0-37.0) g/dL RDW Std Deviation 46.0 (28.0-62.0) fl RDW Coeff of Nubia 14 (11.0-15.0) % Plt Count 256 (150-400) K/uL MPV 10.80 (7.40-12.00) fL Neut % (Auto) 69.2 (48.0-80.0) % Lymph % (Auto) 20.0 (16.0-40.0) % Pierce % (Auto) 7.5 (0.0-15.0) % Eos % (Auto) 2.5 (0.0-7.0) % Baso % (Auto) 0.8 (0.0-1.5) % Neut # (Auto) 6.9 H (1.4-5.7) K/uL Lymph # (Auto) 2.0 (0.6-2.4) K/uL Pierce # (Auto) 0.7 (0.0-0.8) K/uL Eos # (Auto) 0.3 (0.0-0.7) K/uL Baso # (Auto) 0.1 (0.0-0.1) K/uL Nucleated RBC % 0.0 /100WBC Nucleated RBCs # 0 K/uL Meds: Medications Generic Name Dose Route Start Last Admin Trade Name Freq PRN Reason Stop Dose Admin Sodium Chloride 10 ml 12/28/18 15:36 Saline Flush FLUSH ASDIRECTED PRN Keep Vein Open Sodium Chloride 2.5 ml 12/28/18 15:36 Saline Flush FLUSH ASDIRECTED PRN Keep Vein Open Sodium Chloride 10 ml 12/28/18 15:36 Normal Saline IV ASDIRECTED PRN IV Use Discontinued Medications Generic Name Dose Route Start Last Admin Trade Name Freq PRN Reason Stop Dose Admin Labetalol HCl 20 mg 12/28/18 16:13 Normodyne IVPUSH 12/28/18 16:14 NOW ONE Protocol Departure - Departure Disposition: Admitted As Inpatient 68 Clinical Impression: CVA (cerebral vascular accident) - Discharge Information Referrals: PCP,Unknown [Primary Care Provider] - Forms: ED Department Discharge <Da Zimmerman - Last Filed: 12/28/18 16:22> ED HPI GENERAL MEDICAL PROBLEM - History of Present Illness INITIAL COMMENTS - FREE TEXT/NARRATIVE: Patient's NIH stroke scale per nursing was 3 please see stroke code sheet I discussed case with [facility] emergency room who graciously accepted the patient will be flown by [employer] medical with diagnosis of CVA patient' s blood pressure was initially elevated on arrival repeat blood pressures 183/ 95 patient's blood pressure will continue to be monitored closely ED ROS GENERAL - Review of Systems Review Of Systems: ROS reveals no pertinent complaints other than HPI. ED EXAM, NEURO - Physical Exam Exam: See Below (See dictation) Course - Vital Signs Text/Narrative:: Patient at this time is alert oriented he is refusing transfer to [facility] he does understand risk and benefit he does agree to admission here I discussed case with Dr. Douglas I will let Dr. Vasquez at [facility] no patient will be admitted the ICU with diagnosis of CVA Departure - Departure Time of Disposition: 16:18 Condition: Serious
--- NOTE | 2018-12-28 15:53 | CT ---
EXAMINATION: Non contrast CT head. Coronal and sagittal reformats. HISTORY: Pain COMPARISON: CT dated 12/10/2018. FINDINGS: No evidence of intra or extra axial hemorrhage, mass, midline shift, hydrocephalus or edema. Small areas of encephalomalacia within the right frontal region and within the left frontal parietal region, unchanged. There is loss of marin-white matter differentiation within the right parietal-occipital region. No hypoattenuation changes in the major vascular territories to suggest acute infarct. No abnormal intracranial calcifications are detected. No evidence of substantial vascular calcifications. Mild mucosal thickening noted within the paranasal sinuses. Mastoid air cells and middle ears are clear. Orbits and globes are symmetric. Pituitary fossa appears unremarkable. Calvarium is intact. No evidence of skull fracture. IMPRESSION: 1. No acute intracranial findings. 2. Old small right cortical infarcts within the right frontal and left frontal/parietal regions. 3. Late acute to subacute right occipital parietal infarct. Above findings were called to ER at 3:45 PM.
[2018-12-28] MEDS ORDERED: Labetalol 20 MG/4 ML Syringe IVPUSH ONE (16:13)
[2018-12-28 16:21] LABS: CHLORIDE,CL 107 mmol/L (98-107); SODIUM,NA 143 mmol/L (136-148)
--- NOTE | 2018-12-28 16:57 | PCM.HP ---
H&P History of Present Illness - General Date of Service: 12/28/18 Admit Problem/Dx: Admission Diagnosis/Problem Admission Diagnosis/Problem CVA, Cerebrovascular accident - History of Present Illness Initial Comments - Free Text/Narative: 63 yo male with pmh of CVA in 2017 who presents to the ED with complain of right arm weakness and right face weakness. He reports since his stroke in 2017 his right arm gets intermittently tingly He said this "morning" he noticed arm weakness he was unable to tell me a time of onset but stated it was "around noonish". 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 CT scan of the head showed late acute/ subacute left occipital/parietal infarct. TPA was ruled out in the ED due to timing. Bilateral Lower Leg Pain Score (Numeric/FACES): 0 - Related Data Allergies/Adverse Reactions: Allergies Allergy/AdvReac Type Severity Reaction Status Date / Time Sulfa (Sulfonamide Allergy Severe Anaphylactic Verified 12/28/18 15:35 Antibiotics) Shock amoxicillin Allergy Mild Hives Verified 12/28/18 15:35 coconut oil Allergy Mild Cannot Verified 12/28/18 15:35 Remember Home Medications: Home Meds Clopidogrel [Plavix] 75 mg PO DAILY 30 Days #30 tablet 01/01/19 [Rx] Lisinopril [Prinivil] 10 mg PO DAILY 30 Days #30 tablet 01/01/19 [Rx] Metoprolol Tartrate 25 mg PO BID #30 tablet 01/01/19 [Rx] amLODIPine Besylate [Norvasc] 10 mg PO DAILY 30 Days #30 tablet 01/01/19 [Rx] atorvaSTATin [Lipitor] 80 mg PO BEDTIME 30 Days #30 tablet 01/01/19 [Rx] Past Medical History - Past Health History Medical/Surgical History: Denies Medical/Surgical History HEENT History: Reports: Impaired Vision, Other (See Below) 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 Cardiovascular History: Reports: Hypertension, PA Other Cardiovascular History: PA 2012 Respiratory History: Reports: Other (See Below) Other Respiratory History: chronic smoker Gastrointestinal History: Reports: None Genitourinary History: Reports: None Musculoskeletal History: Reports: None Neurological History: Reports: CVA, Headaches, Chronic, TIA Other Neuro History: CVA 2016 Psychiatric History: Reports: Other (See Below) Other Psychiatric History: Impaired decision making, less able to care for himself after CVA. Endocrine/Metabolic History: Reports: None Hematologic History: Reports: None Immunologic History: Reports: None Oncologic (Cancer) History: Reports: None Dermatologic History: Reports: None - Infectious Disease History Infectious Disease History: Reports: Chicken Pox, Measles, Mumps - Past Surgical History Head Surgeries/Procedures: Reports: None HEENT Surgical History: Reports: None Respiratory Surgical History: Reports: None GI Surgical History: Reports: Hernia, Inguinal Male Surgical History: Reports: None Endocrine Surgical History: Reports: None Neurological Surgical History: Reports: None Musculoskeletal Surgical History: Reports: None Social & Family History - Family History Family Medical History: Noncontributory - Tobacco Use Smoking Status *Q: Current Every Day Smoker Years of Tobacco use: 45 Packs/Tins Daily: 1 - Caffeine Use Caffeine Use: Reports: Coffee Caffeine Use Comment: 3 cups daily - Recreational Drug Use Recreational Drug Use: No H&P Review of Systems - Review of Systems: Review Of Systems: ROS reveals no pertinent complaints other than HPI. Exam - Exam Exam: See Below - Vital Signs Vital Signs: Last Vital Signs Temp 36.8 C 12/28/18 15:36 Pulse 75 12/28/18 15:36 Resp 18 12/28/18 15:36 BP 208/107 H 12/28/18 15:36 Pulse Ox 92 L 12/28/18 15:36 Weight: 82.7 kg - Exam General: Alert, Oriented HEENT: Mucosa Moist & [place]: Supple Lungs: Clear to Auscultation, Normal Respiratory Effort Cardiovascular: Regular Rate, Regular Rhythm GI/Abdominal Exam: Normal Bowel Sounds, Soft, Non-Tender Extremities: Non-Tender, No Pedal Edema Skin: Warm, Dry, Intact - Patient Data Lab Results Last 24 hrs: Laboratory Results - last 24 hr 12/28/18 12/28/18 12/28/18 Range/Units 15:30 15:30 15:30 WBC 9.92 (4.0-11.0) K/uL RBC 4.46 L (4.50-5.90) M/uL Hgb 13.3 (13.0-17.0) g/dL Hct 39.0 (38.0-50.0) % MCV 87.4 (80.0-98.0) fL MCH 29.8 (27.0-32.0) pg MCHC 34.1 (31.0-37.0) g/dL RDW Std Deviation 46.0 (28.0-62.0) fl RDW Coeff of Nubia 14 (11.0-15.0) % Plt Count 256 (150-400) K/uL MPV 10.80 (7.40-12.00) fL Neut % (Auto) 69.2 (48.0-80.0) % Lymph % (Auto) 20.0 (16.0-40.0) % [place] % (Auto) 7.5 (0.0-15.0) % Eos % (Auto) 2.5 (0.0-7.0) % Baso % (Auto) 0.8 (0.0-1.5) % Neut # (Auto) 6.9 H (1.4-5.7) K/uL Lymph # (Auto) 2.0 (0.6-2.4) K/uL [place] # (Auto) 0.7 (0.0-0.8) K/uL Eos # (Auto) 0.3 (0.0-0.7) K/uL Baso # (Auto) 0.1 (0.0-0.1) K/uL Nucleated RBC % 0.0 /100WBC Nucleated RBCs # 0 K/uL INR 1.08 APTT 26.8 (18.6-31.3) SEC Sodium 143 (136-148) mmol/L Potassium 3.8 (3.5-5.1) mmol/L Chloride 107 (98-107) mmol/L Carbon Dioxide 21.5 (21.0-32.0) mmol/L BUN 25 H (7.0-18.0) mg/dL Creatinine 1.7 H (0.8-1.3) mg/dL Est Cr Clr Drug Dosing 45.63 mL/min Estimated GFR (MDRD) 41.2 ml/min Glucose 93 (74-106) mg/dL Calcium 9.2 (8.5-10.1) mg/dL Total Bilirubin 0.7 (0.2-1.0) mg/dL AST 27 (15-37) IU/L ALT 33 (14-63) IU/L Alkaline Phosphatase 133 H (46-116) U/L Troponin I < 0.050 (0.000-0.056) ng/mL Total Protein 7.1 (6.4-8.2) g/dL Albumin 3.3 L (3.4-5.0) g/dL Globulin 3.8 (2.6-4.0) g/dL Albumin/Globulin Ratio 0.9 (0.9-1.6) TSH 3rd Generation 1.64 (0.36-3.74) uIU/mL Result Diagrams: 01/01/19 05:50 01/01/19 05:50 Problem List Initiated/Reviewed/Updated: Yes Orders Last 24hrs: Active Orders 24 hr Category Date Time Status Patient Status [ADT] Stat ADT 12/28/18 16:24 Active Antiembolic Devices [RC] PER UNIT ROUTINE Care 12/28/18 16:48 Ordered Assess Neurological Status [RC] ASDIRECTED Care 12/28/18 15:36 Active Bedrest [RC] ASDIRECTED Care 12/28/18 15:36 Active Cardiac Monitoring [RC] . DIRECTED Care 12/28/18 15:36 Active EKG Documentation Completion [RC] STAT Care 12/28/18 15:36 Active Height and Weight [RC] UPON Care 12/28/18 15:36 Active Initiate Acute Stroke Protocol [RC] STAT Care 12/28/18 15:36 Active NIH Stroke Scale [RC] ASDIRECTED Care 12/28/18 15:36 Active Nursing Bedside Swallow Screen [RC] ASDIRECTED Care 12/28/18 15:36 Active Oxygen Therapy [RC] ASDIRECTED Care 12/28/18 15:36 Active Oxygen Therapy [RC] PRN Care 12/28/18 16:46 Ordered Stroke Education, General [RC] Click to Edit Care 12/28/18 15:36 Active Up ad Isidra [RC] ASDIRECTED Care 12/28/18 16:46 Ordered VTE/DVT Education [RC] PER UNIT ROUTINE Care 12/28/18 16:46 Ordered Vital Signs [RC] Q15M Care 12/28/18 15:36 Active Vital Signs [RC] Q4H Care 12/28/18 16:46 Ordered OT Evaluation and Treatment [CONS] Routine Cons 12/28/18 16:46 Ordered PT Evaluation and Treatment [CONS] Routine Cons 12/28/18 16:46 Ordered Regular Diet [DIET] Diet 12/28/18 Breakfast Ordered BASIC METABOLIC PANEL,BMP [CHEM] AM Lab 12/29/18 05:11 Ordered CBC WITH AUTO DIFF [HEME] AM Lab 12/29/18 05:11 Ordered Clopidogrel [Plavix] Med 12/29/18 09:00 Ordered 75 mg PO DAILY Sodium Chloride 0.9% [Normal Saline] Med 12/28/18 15:36 Active 10 ml IV ASDIRECTED PRN Sodium Chloride 0.9% [Saline Flush] Med 12/28/18 15:36 Active 10 ml FLUSH ASDIRECTED PRN Sodium Chloride 0.9% [Saline Flush] Med 12/28/18 15:36 Active 2.5 ml FLUSH ASDIRECTED PRN atorvaSTATin [Lipitor] Med 12/28/18 21:00 Ordered 80 mg PO BEDTIME Peripheral IV Insertion Adult [OM.PC] Stat Oth 12/28/18 15:36 Ordered Peripheral IV Insertion Adult [OM.PC] Stat Oth 12/28/18 15:36 Ordered Sequential Compression Device [OM.PC] Per Unit Routine Oth 12/28/18 16:47 Ordered Resuscitation Status Routine Resus Stat 12/28/18 16:46 Ordered Medication Orders Atorvastatin Calcium (Lipitor) 80 mg PO BEDTIME JAMAR Clopidogrel Bisulfate (Plavix) 75 mg PO DAILY JAMAR Sodium Chloride (Saline Flush) 10 ml FLUSH ASDIRECTED PRN PRN Reason: Keep Vein Open Sodium Chloride (Saline Flush) 2.5 ml FLUSH ASDIRECTED PRN PRN Reason: Keep Vein Open Sodium Chloride (Normal Saline) 10 ml IV ASDIRECTED PRN PRN Reason: IV Use Assessment/Plan Comment:: 63 yo male admitted with CVA. Will monitor in ICU due to elevated blood pressures. TPA has been ruled out. Patient is on Plavix and statin therapy. Will monitor on telemetry. PT/OT consulted. Will allow permissive hypertension
[2018-12-28] MEDS ORDERED: Aspirin 325 MG Tab PO ONE (18:06)
[2018-12-28] MEDS: Labetalol 20 MG/4 ML Syringe IVPUSH PRN (18:50)
[2018-12-28] MEDS: atorvaSTATin 40 MG Tab PO SCH (20:52)
[2018-12-29] MEDS ORDERED: Potassium Chloride 20 MEQ Tab.ER PO ONE (07:12)
[2018-12-29] MEDS: Clopidogrel 75 MG Tab PO SCH (08:27)
[2018-12-29] MEDS: amLODIPine 5 MG Tab PO SCH (10:14)
--- NOTE | 2018-12-29 11:39 | PCM.PN ---
- General Info Date of Service: 12/29/18 Subjective Update: The patient is a 63 year old male who was admitted for stroke. Patient still has right sided weakness. Last night he had some elevated blood pressure of 220 /110, eICU ordered labetalol prn with BP guidelines. eICU also ordered US of the carotids. Today the patient reports he feels ok except for the right sided weakness. He denies chest pain, shortness of breath, or abdominal pain. - Review of Systems General: Reports: No Symptoms HEENT: Reports: No Symptoms Pulmonary: Reports: No Symptoms Cardiovascular: Reports: No Symptoms Gastrointestinal: Reports: No Symptoms Genitourinary: Reports: No Symptoms Musculoskeletal: Reports: No Symptoms Skin: Reports: No Symptoms Neurological: Reports: Weakness (right upper and lower extremity), Other Psychiatric: Reports: No Symptoms - Patient Data Vitals - Most Recent: Last Vital Signs Temp 98 F 12/29/18 08:00 Pulse 65 12/29/18 05:00 Resp 17 12/29/18 10:00 BP 187/93 H 12/29/18 10:14 Pulse Ox 96 12/29/18 10:00 Weight - Most Recent: 80.876 kg I&O - Last 24 Hours: Intake & Output 12/28/18 12/29/18 12/29/18 22:59 06:59 14:59 Intake Total 250 200 Output Total 200 175 Balance 50 25 Lab Results Last 24 Hours: Laboratory Results - last 24 hr 12/28/18 12/28/18 12/28/18 Range/Units 15:30 15:30 15:30 WBC 9.92 (4.0-11.0) K/uL RBC 4.46 L (4.50-5.90) M/uL Hgb 13.3 (13.0-17.0) g/dL Hct 39.0 (38.0-50.0) % MCV 87.4 (80.0-98.0) fL MCH 29.8 (27.0-32.0) pg MCHC 34.1 (31.0-37.0) g/dL RDW Std Deviation 46.0 (28.0-62.0) fl RDW Coeff of Nubia 14 (11.0-15.0) % Plt Count 256 (150-400) K/uL MPV 10.80 (7.40-12.00) fL Neut % (Auto) 69.2 (48.0-80.0) % Lymph % (Auto) 20.0 (16.0-40.0) % [place] % (Auto) 7.5 (0.0-15.0) % Eos % (Auto) 2.5 (0.0-7.0) % Baso % (Auto) 0.8 (0.0-1.5) % Neut # (Auto) 6.9 H (1.4-5.7) K/uL Lymph # (Auto) 2.0 (0.6-2.4) K/uL [place] # (Auto) 0.7 (0.0-0.8) K/uL Eos # (Auto) 0.3 (0.0-0.7) K/uL Baso # (Auto) 0.1 (0.0-0.1) K/uL Nucleated RBC % 0.0 /100WBC Nucleated RBCs # 0 K/uL INR 1.08 APTT 26.8 (18.6-31.3) SEC Sodium 143 (136-148) mmol/L Potassium 3.8 (3.5-5.1) mmol/L Chloride 107 (98-107) mmol/L Carbon Dioxide 21.5 (21.0-32.0) mmol/L BUN 25 H (7.0-18.0) mg/dL Creatinine 1.7 H (0.8-1.3) mg/dL Est Cr Clr Drug Dosing 45.63 mL/min Estimated GFR (MDRD) 41.2 ml/min Glucose 93 (74-106) mg/dL Calcium 9.2 (8.5-10.1) mg/dL Total Bilirubin 0.7 (0.2-1.0) mg/dL AST 27 (15-37) IU/L ALT 33 (14-63) IU/L Alkaline Phosphatase 133 H (46-116) U/L Troponin I < 0.050 (0.000-0.056) ng/mL Total Protein 7.1 (6.4-8.2) g/dL Albumin 3.3 L (3.4-5.0) g/dL Globulin 3.8 (2.6-4.0) g/dL Albumin/Globulin Ratio 0.9 (0.9-1.6) TSH 3rd Generation 1.64 (0.36-3.74) uIU/mL Urine Color Urine Appearance Urine pH (5.0-8.0) Ur Specific [place] (1.001-1.035) Urine Protein (NEGATIVE) mg/dL Urine Glucose (UA) (NEGATIVE) mg/dL Urine Ketones (NEGATIVE) mg/dL Urine Occult Blood (NEGATIVE) Urine Nitrite (NEGATIVE) Urine Bilirubin (NEGATIVE) Urine Urobilinogen (<2.0) EU/dL Ur Leukocyte Esterase (NEGATIVE) Urine RBC (0-2/HPF) Urine WBC (0-5/HPF) Ur Epithelial Cells (NONE-FEW) Urine Bacteria (NEGATIVE) 12/28/18 12/29/18 12/29/18 Range/Units 22:00 05:47 05:47 WBC 7.47 (4.0-11.0) K/uL RBC 4.49 L (4.50-5.90) M/uL Hgb 13.2 (13.0-17.0) g/dL Hct 39.3 (38.0-50.0) % MCV 87.5 (80.0-98.0) fL MCH 29.4 (27.0-32.0) pg MCHC 33.6 (31.0-37.0) g/dL RDW Std Deviation 46.0 (28.0-62.0) fl RDW Coeff of [place]ubia 14 (11.0-15.0) % Plt Count 229 (150-400) K/uL MPV 10.70 (7.40-12.00) fL Neut % (Auto) 52.7 (48.0-80.0) % Lymph % (Auto) 28.9 (16.0-40.0) % [place] % (Auto) 9.5 (0.0-15.0) % Eos % (Auto) 7.0 (0.0-7.0) % Baso % (Auto) 1.9 H (0.0-1.5) % Neut # (Auto) 3.9 (1.4-5.7) K/uL Lymph # (Auto) 2.2 (0.6-2.4) K/uL [place] # (Auto) 0.7 (0.0-0.8) K/uL Eos # (Auto) 0.5 (0.0-0.7) K/uL Baso # (Auto) 0.1 (0.0-0.1) K/uL Nucleated RBC % 0.0 /100WBC Nucleated RBCs # 0 K/uL INR APTT (18.6-31.3) SEC Sodium 145 (136-148) mmol/L Potassium 3.4 L (3.5-5.1) mmol/L Chloride 110 H (98-107) mmol/L Carbon Dioxide 25.1 (21.0-32.0) mmol/L BUN 25 H (7.0-18.0) mg/dL Creatinine 1.6 H (0.8-1.3) mg/dL Est Cr Clr Drug Dosing 48.48 mL/min Estimated GFR (MDRD) 44.2 ml/min Glucose 102 (74-106) mg/dL Calcium 8.9 (8.5-10.1) mg/dL Total Bilirubin (0.2-1.0) mg/dL AST (15-37) IU/L ALT (14-63) IU/L Alkaline Phosphatase (46-116) U/L Troponin I (0.000-0.056) ng/mL Total Protein (6.4-8.2) g/dL Albumin (3.4-5.0) g/dL Globulin (2.6-4.0) g/dL Albumin/Globulin Ratio (0.9-1.6) TSH 3rd Generation (0.36-3.74) uIU/mL Urine Color YELLOW Urine Appearance CLEAR Urine pH 6.0 (5.0-8.0) Ur Specific [place] 1.025 (1.001-1.035) Urine Protein NEGATIVE (NEGATIVE) mg/dL Urine Glucose (UA) NEGATIVE (NEGATIVE) mg/dL Urine Ketones TRACE H (NEGATIVE) mg/dL Urine Occult Blood TRACE-INTACT H (NEGATIVE) Urine Nitrite NEGATIVE (NEGATIVE) Urine Bilirubin NEGATIVE (NEGATIVE) Urine Urobilinogen 0.2 (<2.0) EU/dL Ur Leukocyte Esterase NEGATIVE (NEGATIVE) Urine RBC 0-2 (0-2/HPF) Urine WBC 2-3 (0-5/HPF) Ur Epithelial Cells OCCASIONAL (NONE-FEW) Urine Bacteria FEW (NEGATIVE) Med Orders - Current: Current Medications Amlodipine Besylate (Norvasc) 5 mg PO DAILY JAMAR Last Admin: 12/29/18 10:14 Dose: 5 mg Atorvastatin Calcium (Lipitor) 80 mg PO BEDTIME [facility] Last Admin: 12/28/18 20:52 Dose: 80 mg Clopidogrel Bisulfate (Plavix) 75 mg PO DAILY [facility] Last Admin: 12/29/18 08:27 Dose: 75 mg Labetalol HCl (Normodyne) 20 mg IVPUSH Q4H PRN; Protocol PRN Reason: Hypertension Last Admin: 12/28/18 18:50 Dose: 20 mg Sodium Chloride (Saline Flush) 10 ml FLUSH ASDIRECTED PRN PRN Reason: Keep Vein Open Sodium Chloride (Saline Flush) 2.5 ml FLUSH ASDIRECTED PRN PRN Reason: Keep Vein Open Sodium Chloride (Normal Saline) 10 ml IV ASDIRECTED PRN PRN Reason: IV Use Discontinued Medications Aspirin (Aspirin) 325 mg PO ONETIME ONE Stop: 12/28/18 18:07 Last Admin: 12/28/18 18:50 Dose: 325 mg Labetalol HCl (Normodyne) 20 mg IVPUSH NOW ONE; Protocol Stop: 12/28/18 16:14 Last Admin: 12/28/18 16:31 Dose: Not Given Potassium Chloride (Klor-Con M20) 40 meq PO ONETIME ONE Stop: 12/29/18 07:13 Last Admin: 12/29/18 08:26 Dose: 40 meq - Exam General: Alert, Oriented, Cooperative HEENT: Pupils Equal, Pupils Reactive Lungs: Clear to Auscultation, Normal Respiratory Effort Cardiovascular: Regular Rate, Regular Rhythm GI/Abdominal Exam: Normal Bowel Sounds, Soft, Non-Tender, No Distention Extremities: No Pedal Edema Skin: Warm, Dry Neurological: Other (right sided weakness upper/lower extremities, no facial asymmetry, no slurred speech) Psy/Mental Status: Alert, Normal Affect, Normal Mood - Problem List Review Problem List Initiated/Reviewed/Updated: Yes - My Orders Last 24 Hours: My Active Orders 12/29/18 10:47 Ang Head w wo Cont [MR] Routine Ang Neck wo Cont [MR] Routine Brain w wo Cont [MR] Routine 12/30/18 05:11 BASIC METABOLIC PANEL,BMP [CHEM] AM CBC WITH AUTO DIFF [HEME] AM - Plan Plan:: 1. CVA- continue statin, Plavix, and monitor BP, prn labetalol ordered with BP parameters set out by eICU. Will get US of the carotids today per e ICU. MRA of head/neck and MRI of the brain will be ordered but will not be completed until Monday. PT/OT consulted. 2. Hypokalemia- will replace and recheck in the AM
--- NOTE | 2018-12-29 16:09 | US ---
INDICATION: CVA CLINICAL HISTORY: [] CVA Comparison is a MRA report 01/08/2018. The images are not available. TECHNIQUE: Manning scale, color doppler and spectral analysis was performed of the carotid vessels. FINDINGS: Sonographic images demonstrate diffuse atherosclerotic plaque in the left common carotid, carotid bulb ICA and ECA bilaterally. There is severe plaque on the right and moderate plaque on the left. There was antegrade blood flow demonstrated within the vertebral arteries and the subclavian arteries demonstrate a normal triphasic waveform. Peak systolic velocity in the left internal carotid artery measures 100 and 5 cm/second. The ICA/CCA peak systolic velocity ratio measures [] on the right and [] on the left. The right internal carotid artery is occluded with no flow demonstrated. IMPRESSION: 1. Occlusion of the right ICA which was reported on prior MRA from 2018. 2. No hemodynamically significant stenosis within the left internal carotid artery. Prelim Report By Dr. Annette Santos @ 12/29/2018 4:08:03 PM Dictated by: Annette Santos MD @ 01/02/2019 19:53:53 (Electronically Signed)
[2018-12-29] MEDS: atorvaSTATin 40 MG Tab PO SCH (20:19)
[2018-12-30] MEDS: Labetalol 20 MG/4 ML Syringe IVPUSH PRN (05:09)
[2018-12-30] MEDS: Clopidogrel 75 MG Tab PO SCH (08:20)
[2018-12-30] MEDS: amLODIPine 5 MG Tab PO SCH (08:20)
--- NOTE | 2018-12-30 17:01 | PCM.PN ---
- General Info Date of Service: 12/30/18 - Review of Systems Systems Review Comment:: no new complaints, right hand is stronger. - Patient Data Vitals - Most Recent: Last Vital Signs Temp 36.8 C 12/30/18 12:00 Pulse 65 12/29/18 05:00 Resp 19 12/30/18 15:00 BP 171/79 H 12/30/18 15:00 Pulse Ox 91 L 12/30/18 15:00 Weight - Most Recent: 80.9 kg I&O - Last 24 Hours: Intake & Output 12/30/18 12/30/18 12/30/18 06:59 14:59 22:59 Intake Total 700 Balance 700 Lab Results Last 24 Hours: Laboratory Results - last 24 hr 12/30/18 12/30/18 Range/Units 06:10 06:10 WBC 8.13 (4.0-11.0) K/uL RBC 4.55 (4.50-5.90) M/uL Hgb 13.3 (13.0-17.0) g/dL Hct 39.7 (38.0-50.0) % MCV 87.3 (80.0-98.0) fL MCH 29.2 (27.0-32.0) pg MCHC 33.5 (31.0-37.0) g/dL RDW Std Deviation 45.5 (28.0-62.0) fl RDW Coeff of Nubia 14 (11.0-15.0) % Plt Count 228 (150-400) K/uL MPV 10.60 (7.40-12.00) fL Neut % (Auto) 58.0 (48.0-80.0) % Lymph % (Auto) 26.9 (16.0-40.0) % [place] % (Auto) 8.0 (0.0-15.0) % Eos % (Auto) 6.0 (0.0-7.0) % Baso % (Auto) 1.1 (0.0-1.5) % Neut # (Auto) 4.7 (1.4-5.7) K/uL Lymph # (Auto) 2.2 (0.6-2.4) K/uL [place] # (Auto) 0.7 (0.0-0.8) K/uL Eos # (Auto) 0.5 (0.0-0.7) K/uL Baso # (Auto) 0.1 (0.0-0.1) K/uL Nucleated RBC % 0.0 /100WBC Nucleated RBCs # 0 K/uL Sodium 144 (136-148) mmol/L Potassium 3.6 (3.5-5.1) mmol/L Chloride 109 H (98-107) mmol/L Carbon Dioxide 23.7 (21.0-32.0) mmol/L BUN 26 H (7.0-18.0) mg/dL Creatinine 1.6 H (0.8-1.3) mg/dL Est Cr Clr Drug Dosing 48.32 mL/min Estimated GFR (MDRD) 44.2 ml/min Glucose 113 H (74-106) mg/dL Calcium 8.7 (8.5-10.1) mg/dL Med Orders - Current: Current Medications Amlodipine Besylate (Norvasc) 5 mg PO DAILY [facility] Last Admin: 12/30/18 08:20 Dose: 5 mg Atorvastatin Calcium (Lipitor) 80 mg PO BEDTIME [facility] Last Admin: 12/29/18 20:19 Dose: 80 mg Clopidogrel Bisulfate (Plavix) 75 mg PO DAILY [facility] [place] Last Admin: 12/30/18 08:20 Dose: 75 mg Labetalol HCl (Normodyne) 20 mg IVPUSH Q4H PRN; Protocol PRN Reason: Hypertension Last Admin: 12/30/18 05:09 Dose: 20 mg Sodium Chloride (Saline Flush) 10 ml FLUSH ASDIRECTED PRN PRN Reason: Keep Vein Open Last Admin: 12/29/18 20:33 Dose: 10 ml Sodium Chloride (Saline Flush) 2.5 ml FLUSH ASDIRECTED PRN PRN Reason: Keep Vein Open Sodium Chloride (Normal Saline) 10 ml IV ASDIRECTED PRN PRN Reason: IV Use Discontinued Medications Aspirin (Aspirin) 325 mg PO ONETIME ONE Stop: 12/28/18 18:07 Last Admin: 12/28/18 18:50 Dose: 325 mg Labetalol HCl (Normodyne) 20 mg IVPUSH NOW ONE; Protocol Stop: 12/28/18 16:14 Last Admin: 12/28/18 16:31 Dose: Not Given Potassium Chloride (Klor-Con M20) 40 meq PO ONETIME ONE Stop: 12/29/18 07:13 Last Admin: 12/29/18 08:26 Dose: 40 meq - Exam General: Alert, Oriented Lungs: Clear to Auscultation, Normal Respiratory Effort Cardiovascular: Regular Rate, Regular Rhythm GI/Abdominal Exam: Soft, Non-Tender Extremities: Normal Inspection, Non-Tender, No Pedal Edema Skin: Warm, Dry, Intact - Problem List Review Problem List Initiated/Reviewed/Updated: Yes - My Orders Last 24 Hours: My Active Orders 12/30/18 21:00 Metoprolol Tartrate [Lopressor] 25 mg PO BID - Plan Plan:: 63 yo male admitted with CVA. will continue statin and plavix. Will restart metoprolol today. MRI of brain has been ordered. OT consulted
[2018-12-30] MEDS: atorvaSTATin 40 MG Tab PO SCH (20:01)
[2018-12-30] MEDS: Metoprolol Tartrate 25 MG Tab PO SCH (20:01)
[2018-12-30] MEDS ORDERED: diphenhydrAMINE 25 MG Cap PO ONE (22:08)
[2018-12-31] MEDS: amLODIPine 5 MG Tab PO SCH (08:23)
[2018-12-31] MEDS: Metoprolol Tartrate 25 MG Tab PO SCH ×2 (08:23→20:44)
[2018-12-31] MEDS: Clopidogrel 75 MG Tab PO SCH (08:23)
--- NOTE | 2018-12-31 08:23 | PCM.PN ---
- General Info Date of Service: 12/31/18 Subjective Update: Patient reports weakness on the right side is the same as yesterday but improved since day of admission. He denies any chest pain, shortness of breath , or abdominal pain. Eating, drinking, going to the bathroom without issue. - Review of Systems General: Reports: No Symptoms HEENT: Reports: No Symptoms Pulmonary: Reports: No Symptoms Cardiovascular: Reports: No Symptoms Gastrointestinal: Reports: No Symptoms Genitourinary: Reports: No Symptoms Musculoskeletal: Reports: No Symptoms Skin: Reports: No Symptoms Neurological: Reports: Weakness (right sided) Psychiatric: Reports: No Symptoms - Patient Data Vitals - Most Recent: Last Vital Signs Temp 97.2 F 12/31/18 07:49 Pulse 59 L 12/31/18 07:49 Resp 16 12/31/18 07:49 BP 158/72 H 12/31/18 07:49 Pulse Ox 98 12/31/18 07:49 Weight - Most Recent: 80.9 kg I&O - Last 24 Hours: Intake & Output 12/30/18 12/31/18 12/31/18 22:59 06:59 14:59 Intake Total 700 700 Output Total 0 Balance 700 700 Lab Results Last 24 Hours: Laboratory Results - last 24 hr 12/31/18 12/31/18 Range/Units 06:24 06:24 WBC 8.38 (4.0-11.0) K/uL RBC 4.66 (4.50-5.90) M/uL Hgb 13.8 (13.0-17.0) g/dL Hct 40.9 (38.0-50.0) % MCV 87.8 (80.0-98.0) fL MCH 29.6 (27.0-32.0) pg MCHC 33.7 (31.0-37.0) g/dL RDW Std Deviation 45.4 (28.0-62.0) fl RDW Coeff of [place]ubia 14 (11.0-15.0) % Plt Count 226 (150-400) K/uL MPV 10.60 (7.40-12.00) fL Neut % (Auto) 55.4 (48.0-80.0) % Lymph % (Auto) 26.8 (16.0-40.0) % [place] % (Auto) 8.7 (0.0-15.0) % Eos % (Auto) 7.4 H (0.0-7.0) % Baso % (Auto) 1.7 H (0.0-1.5) % Neut # (Auto) 4.6 (1.4-5.7) K/uL Lymph # (Auto) 2.3 (0.6-2.4) K/uL [place] # (Auto) 0.7 (0.0-0.8) K/uL Eos # (Auto) 0.6 (0.0-0.7) K/uL Baso # (Auto) 0.1 (0.0-0.1) K/uL Nucleated RBC % 0.0 /100WBC Nucleated RBCs # 0 K/uL Sodium 143 (136-148) mmol/L Potassium 3.7 (3.5-5.1) mmol/L Chloride 108 H (98-107) mmol/L Carbon Dioxide 25.1 (21.0-32.0) mmol/L BUN 28 H (7.0-18.0) mg/dL Creatinine 1.4 H (0.8-1.3) mg/dL Est Cr Clr Drug Dosing 55.22 mL/min Estimated GFR (MDRD) 51.5 ml/min Glucose 103 (74-106) mg/dL Calcium 8.8 (8.5-10.1) mg/dL Med Orders - Current: Current Medications Amlodipine Besylate (Norvasc) 5 mg PO DAILY [facility] Last Admin: 12/30/18 08:20 Dose: 5 mg Atorvastatin Calcium (Lipitor) 80 mg PO BEDTIME [facility] Last Admin: 12/30/18 20:01 Dose: 80 mg Clopidogrel Bisulfate (Plavix) 75 mg PO DAILY [facility] Last Admin: 12/30/18 08:20 Dose: 75 mg Labetalol HCl (Normodyne) 20 mg IVPUSH Q4H PRN; Protocol PRN Reason: Hypertension Last Admin: 12/30/18 05:09 Dose: 20 mg Metoprolol Tartrate (Lopressor) 25 mg PO BID [facility] Last Admin: 12/30/18 20:01 Dose: 25 mg Sodium Chloride (Saline Flush) 10 ml FLUSH ASDIRECTED PRN PRN Reason: Keep Vein Open Last Admin: 12/29/18 20:33 Dose: 10 ml Sodium Chloride (Saline Flush) 2.5 ml FLUSH ASDIRECTED PRN PRN Reason: Keep Vein Open Sodium Chloride (Normal Saline) 10 ml IV ASDIRECTED PRN PRN Reason: IV Use Discontinued Medications Aspirin (Aspirin) 325 mg PO ONETIME ONE Stop: 12/28/18 18:07 Last Admin: 12/28/18 18:50 Dose: 325 mg Diphenhydramine HCl (Benadryl) 25 mg PO ONETIME ONE Stop: 12/30/18 22:09 Last Admin: 12/30/18 22:12 Dose: 25 mg Labetalol HCl (Normodyne) 20 mg IVPUSH NOW ONE; Protocol Stop: 12/28/18 16:14 Last Admin: 12/28/18 16:31 Dose: Not Given Potassium Chloride (Klor-Con M20) 40 meq PO ONETIME ONE Stop: 12/29/18 07:13 Last Admin: 12/29/18 08:26 Dose: 40 meq - Exam General: Alert, Oriented, Cooperative Lungs: Clear to Auscultation, Normal Respiratory Effort Cardiovascular: Regular Rate, Regular Rhythm GI/Abdominal Exam: Normal Bowel Sounds, Soft, Non-Tender, No Distention Extremities: No Pedal Edema Skin: Warm, Dry Neurological: Other (strength on the right improved) Psy/Mental Status: Alert, Normal Affect, Normal Mood - Problem List Review Problem List Initiated/Reviewed/Updated: Yes - Plan Plan:: 63 yo male admitted with CVA. will continue statin and plavix. Blood pressure control with metoprolol, and increase amlodipine to 10 mg daily. Continue PT, OT will evaluation/treat today. MRI brain and MRA of head/neck ordered for today. Will speak with neurology, Dr. Gauthier, after results are back.
[2018-12-31] MEDS ORDERED: amLODIPine 5 MG Tab PO ONE (09:49)
[2018-12-31] MEDS ORDERED: Gadobenate Dimeglumine 529 MG/ML 20 ML SDV IVPUSH STA (10:07)
[2018-12-31] MEDS ORDERED: amLODIPine 5 MG Tab ONE (12:55)
--- NOTE | 2018-12-31 15:13 | MR ---
EXAMINATION: MRI brain with and without contrast, MRA head without contrast neck without contrast HISTORY: Stroke COMPARISON: CT dated 12/28/2018 TECHNIQUE: Multiplanar and multisequence imaging obtained of the brain before and following the administration of 15 mL of MultiHance. [id number] imaging obtained through the head and neck with MIP reconstructions. FINDINGS: MRI brain: Old right frontal and left parietal-occipital infarcts are noted. There is a moderate area of increased FLAIR signal within the right occipital region to the inferior right temporal region. This area demonstrates minimally increased diffusion restriction. There is however extensive cortical and parenchymal enhancement within this region. There is also a small area of cortical enhancement within the right parietal lobe. There is no abnormal mass, mass effect, or midline shift. Ventricles other smaller symmetric. Mild generalized atrophy. Small focal periventricular and subcortical white matter FLAIR intensities are noted. There is absence of the right carotid flow void. The left carotid and vertebral basilar flow voids are present. Craniocervical junction is normal. Cerebellar pontine angles are clear. The midbrain and cerebellum appear otherwise normal. Mastoid air cells and middle ears are clear. Paranasal sinuses are essentially clear. Orbits and globes are symmetric. Calvarium signal is normal. MRA neck: There is a normal three-vessel origin of the aortic arch. The common carotid arteries are patent. There is left vertebral artery is mildly dominant. The right internal carotid artery is occluded. Mild atheromatous changes at the proximal left internal carotid artery. There is loss of signal on the [id number] imaging through the right vertebral artery, likely due to the plane of imaging. MRA head: Again noted is occlusion of the right internal carotid artery. There is reconstitution of the right middle cerebral artery through the posterior communicating artery. The left internal carotid artery is grossly normal. The right anterior cerebral artery is normal. The left anterior cerebral artery is occluded just distal to the anterior communicating artery. The left posterior communicating artery is diminutive. There is moderate stenosis of the distal right vertebral artery just prior to the basilar artery. The posterior cerebral arteries are grossly patent. IMPRESSION: 1. Moderate Subacute right occipital to temporal infarct with cortical and parenchymal enhancement. Minimal residual diffusion restriction. 2. There is also a tiny cortical infarct within the right parietal region, subacute. 3. Occlusion of the entire right internal carotid artery. 4. Occlusion of the left anterior cerebral artery just distal to the anterior communicating artery. 5. Moderate focal stenosis of the distal right vertebral artery. 6. Mild small vessel ischemic changes. 7. Mild atheromatous narrowing within the proximal left internal carotid artery.
--- NOTE | 2018-12-31 17:31 | PCM.CONSN ---
- General Info Date of Service: 12/31/18 Subjective Update: To review: On 08/17/2017 he was admitted [facility] with left-sided facial numbness and slurred speech. During hospitalization he developed mild left-sided weakness - upper and lower limb. MRI demonstrated infarcts involving in multiple vascular territories with appearance suggestive of embolic infarct. There was also areas of encephalomalacia consistent with prior stroke. MRA demonstrated occlusion of the right cervical ICA. He was transferred to [place]. He was hospitalized at [facility] from August 17 [address] angiogram showed complete occlusion of the right ICA Echocardiogram revealed normal left ventricular ejection fraction, mild apical hypokinesis and possible distal anterolateral hypokinesis. He underwent transesophageal echocardiogram which showed no evidence of thrombus. See below for outpatient work up. On Oct 25, 2018, he noted new numbness on the left side of his neck and arm. One 12/16/2017, he was complaining of episodic vertigo. On 01/07/2018, he had episode of leg shaking. On February 04, 2018, he was admitted with left upper and lower limb weakness and numbness, symptoms returned to baseline. On March he presented with left sided weakness after stress test. On April 17, 2018, he noted vision impairment of left eye. He saw Dr. Stevenson who noted thinning of the inner retina of the RIGHT eye, which is evidence of prior retinal artery occlusion. 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 He reports feeling dizzy when he was walking downtown, when he fell. He recalls hearing somebody say something is wrong with him. He notes that he noted right hand weakness as well. He feels back to his baseline now. MRI brain showed a new area of T2 signal change a/w enhancement, likely a subacute stroke in right temporal / occipital stroke. - Review of Systems General: Reports: Weakness HEENT: Reports: Visual Changes Pulmonary: Reports: No Symptoms Cardiovascular: Reports: No Symptoms Gastrointestinal: Reports: No Symptoms Neurological: Reports: Dizziness, Weakness, Gait Disturbance - Patient Data Vitals - Most Recent: Last Vital Signs Temp 36.5 C 12/31/18 16:00 Pulse 66 12/31/18 16:00 Resp 20 12/31/18 16:00 BP 173/97 H 12/31/18 16:00 Pulse Ox 94 L 12/31/18 16:00 Weight - Most Recent: 80.9 kg I&O - Last 24 Hours: Intake & Output 12/31/18 12/31/18 12/31/18 06:59 14:59 22:59 Intake Total 700 200 Balance 700 200 Lab Results Last 24 Hours: Laboratory Results - last 24 hr 12/31/18 12/31/18 Range/Units 06:24 06:24 WBC 8.38 (4.0-11.0) K/uL RBC 4.66 (4.50-5.90) M/uL Hgb 13.8 (13.0-17.0) g/dL Hct 40.9 (38.0-50.0) % MCV 87.8 (80.0-98.0) fL MCH 29.6 (27.0-32.0) pg MCHC 33.7 (31.0-37.0) g/dL RDW Std Deviation 45.4 (28.0-62.0) fl RDW Coeff of Nubia 14 (11.0-15.0) % Plt Count 226 (150-400) K/uL MPV 10.60 (7.40-12.00) fL Neut % (Auto) 55.4 (48.0-80.0) % Lymph % (Auto) 26.8 (16.0-40.0) % [place] % (Auto) 8.7 (0.0-15.0) % Eos % (Auto) 7.4 H (0.0-7.0) % Baso % (Auto) 1.7 H (0.0-1.5) % Neut # (Auto) 4.6 (1.4-5.7) K/uL Lymph # (Auto) 2.3 (0.6-2.4) K/uL [place] # (Auto) 0.7 (0.0-0.8) K/uL Eos # (Auto) 0.6 (0.0-0.7) K/uL Baso # (Auto) 0.1 (0.0-0.1) K/uL Nucleated RBC % 0.0 /100WBC Nucleated RBCs # 0 K/uL Sodium 143 (136-148) mmol/L Potassium 3.7 (3.5-5.1) mmol/L Chloride 108 H (98-107) mmol/L Carbon Dioxide 25.1 (21.0-32.0) mmol/L BUN 28 H (7.0-18.0) mg/dL Creatinine 1.4 H (0.8-1.3) mg/dL Est Cr Clr Drug Dosing 55.22 mL/min Estimated GFR (MDRD) 51.5 ml/min Glucose 103 (74-106) mg/dL Calcium 8.8 (8.5-10.1) mg/dL Med Orders - Current: Current Medications Amlodipine Besylate (Norvasc) 10 mg PO [facility]ILY [facility] Atorvastatin Calcium (Lipitor) 80 mg PO BEDTIME [facility] Last Admin: 12/30/18 20:01 Dose: 80 mg Clopidogrel Bisulfate (Plavix) 75 mg PO DAILY [facility] Last Admin: 12/31/18 08:23 Dose: 75 mg Labetalol HCl (Normodyne) 20 mg IVPUSH Q4H PRN; Protocol PRN Reason: Hypertension Last Admin: 12/30/18 05:09 Dose: 20 mg Metoprolol Tartrate (Lopressor) 25 mg PO BID [facility] Last Admin: 12/31/18 08:23 Dose: 25 mg Sodium Chloride (Saline Flush) 10 ml FLUSH ASDIRECTED PRN PRN Reason: Keep Vein Open Last Admin: 12/29/18 20:33 Dose: 10 ml Sodium Chloride (Saline Flush) 2.5 ml FLUSH ASDIRECTED PRN PRN Reason: Keep Vein Open Sodium Chloride (Normal Saline) 10 ml IV ASDIRECTED PRN PRN Reason: IV Use Discontinued Medications Amlodipine Besylate (Norvasc) 5 mg PO DAILY [facility] Last Admin: 12/31/18 08:23 Dose: 5 mg Amlodipine Besylate (Norvasc) 5 mg PO ONETIME ONE Stop: 12/31/18 09:50 Last Admin: 12/31/18 12:58 Dose: 5 mg Amlodipine Besylate (Norvasc) Confirm Administered Dose 5 mg .ROUTE .STK-MED ONE Stop: 12/31/18 12:56 Last Admin: 12/31/18 14:23 Dose: Not Given Aspirin (Aspirin) 325 mg PO ONETIME ONE Stop: 12/28/18 18:07 Last Admin: 12/28/18 18:50 Dose: 325 mg Diphenhydramine HCl (Benadryl) 25 mg PO ONETIME ONE Stop: 12/30/18 22:09 Last Admin: 12/30/18 22:12 Dose: 25 mg Gadobenate Dimeglumine (Multihance) 20 ml IVPUSH ONETIME STA Stop: 12/31/18 10:08 Last Admin: 12/31/18 10:12 Dose: 13 ml Labetalol HCl (Normodyne) 20 mg IVPUSH NOW ONE; Protocol Stop: 12/28/18 16:14 Last Admin: 12/28/18 16:31 Dose: Not Given Potassium Chloride (Klor-Con M20) 40 meq PO ONETIME ONE Stop: 12/29/18 07:13 Last Admin: 12/29/18 08:26 Dose: 40 meq - Exam Physical Findings Comments:: Constitutional: No acute distress Psychiatric: Mood/Affect: normal/appropriate Neurological: Mental Status: General: Normal activity, good hygiene, appropriate appearance. Level of consciousness: Awake, alert. Orientation: Oriented to person, place, time and situation. Cranial Nerves: Pupils equally round and reactive to light. Left hemianopsia. Gaze conjugate, EOMI. Sensation intact and symmetric to light touch. Facial strength is full and symmetric. Palate elevates symmetrically. Normal shrug bilaterally. Tongue protrudes midline Motor: Left hip flexors 4/5, L ankle DF 4+. Sensation: Sensation is decreased to temp upper limbs and left ankle. . Coordination: Finger to nose mildly dysmetric bilaterally. Gait: No postural instability. Consult PN Assessment/Plan Procedures: Procedures ASSAY OF BLOOD/URIC ACID (12/07/18) ASSAY OF CREATININE (11/29/18) ASSAY OF FREE THYROXINE (11/02/17) ASSAY OF MAGNESIUM (02/04/18) ASSAY OF NATRIURETIC PEPTIDE (01/07/18) ASSAY OF TROPONIN QUANT (12/10/18) ASSAY THYROID STIM HORMONE (04/21/18) BLOOD TYPING SEROLOGIC ABO (04/21/18) BLOOD TYPING SEROLOGIC RH(D) (04/21/18) CARDIOVASCULAR STRESS TEST (03/22/18) CHEST X-RAY 1 VIEW FRONTAL (08/17/17) COMPLETE CBC W/AUTO DIFF WBC (12/17/18) COMPREHEN METABOLIC PANEL (12/17/18) CREATINE MB FRACTION (08/17/17) CRITICAL CARE FIRST HOUR (04/21/18) CT HEAD/BRAIN W/O DYE (12/10/18) CT LUMBAR SPINE W/O DYE (06/29/17) DRUG TEST PRSMV DIR OPT OBS (07/10/18) ELECTROCARDIOGRAM TRACING (12/10/18) EMERGENCY DEPT VISIT (12/10/18) EMERGENCY DEPT VISIT (07/10/18) GLUCOSE BLOOD TEST (12/07/18) GLYCOSYLATED HEMOGLOBIN TEST (12/07/18) HT MUSCLE IMAGE SPECT SING (03/22/18) HYDRATE IV INFUSION ADD-ON (02/04/18) HYDRATION IV INFUSION INIT (03/22/18) LIPID PANEL (11/02/17) MEDICAL NUTRITION INDIV IN (02/01/18) METABOLIC PANEL TOTAL CA (01/07/18) MR ANGIOGRAPH HEAD W/O&W/DYE (08/17/17) MR ANGIOGRAPH NECK W/O&W/DYE (08/17/17) MR ANGIOGRAPHY HEAD W/O DYE (11/29/18) MR ANGIOGRAPHY NECK W/DYE (11/29/18) MR ANGIOGRAPHY NECK W/O DYE (01/07/18) MRI BRAIN STEM W/O & W/DYE (11/29/18) MRI BRAIN STEM W/O DYE (01/07/18) OT EVAL LOW COMPLEX 30 MIN (06/13/18) PROTHROMBIN TIME (12/10/18) PT EVAL LOW COMPLEX 20 MIN (02/04/18) RBC ANTIBODY SCREEN (04/21/18) REMOTE 30 DAY ECG REV/REPORT (10/31/17) ROUTINE VENIPUNCTURE (12/17/18) THER/PROPH/DIAG INJ IV PUSH (12/10/18) THER/PROPH/DIAG INJ SC/IM (08/17/17) THER/PROPH/DIAG IV INF INIT (02/04/18) THERAPEUTIC ACTIVITIES (02/04/18) THERAPEUTIC EXERCISES (02/04/18) THROMBOPLASTIN TIME PARTIAL (04/21/18) TTE W/DOPPLER COMPLETE (01/07/18) TTE W/O DOPPLER COMPLETE (02/04/18) TX/PRO/DX INJ NEW DRUG ADDON (12/10/18) TX/PRO/DX INJ 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 He has a history of noncompliance with medications and tobacco use. Options for referral to tertiary care center has been limited by his financial restrictions. Although revascularization of vertebral stenosis is performed in some tertiary centers, evidence is limited, it is generally be considered in patients with symptomatic VAS who have failed medical therapy. It is difficult to say if he has failed medication therapy with history of noncompliance and tobacco uses. Importance of compliance with medical therapy reviewed with him. f/u with me 4-6 weeks.
[2018-12-31] MEDS: atorvaSTATin 40 MG Tab PO SCH (20:44)
[2019-01-01] MEDS: Labetalol 20 MG/4 ML Syringe IVPUSH PRN ×2 (00:46→05:16)
[2019-01-01] MEDS: Metoprolol Tartrate 25 MG Tab PO SCH (08:26)
[2019-01-01] MEDS: Clopidogrel 75 MG Tab PO SCH (08:28)
[2019-01-01] MEDS ORDERED: amLODIPine 5 MG Tab PO SCH (09:00)
[2019-01-01] MEDS ORDERED: Lisinopril 10 MG Tab PO SCH (10:00)
[2019-01-01 10:58] VITALS: BP 173/82
--- NOTE | 2019-01-01 11:18 | PCM.DCSUM1 ---
<Melissa Mehta - Last Filed: 01/01/19 11:22> Discharge Summary - Hospital Course Free Text/Narrative:: Admission Date:12/28/18 Discharge Date: 01/01/19 Admission Diagnosis: 1. CVA Discharge Diagnosis: 1. CVA 2. MEETA- back at baseline Procedures: None Consults: Dr. Gauthier, neurology Hospital Course: The patient is a 63 year old male with pmh of CVA who presented to the ER with right sided extremity and facial weakness. CT of the head showed subacute left occipital/paritela infarct. TPA was ruled out due to timing. He was admitted to ICU. We allowed permissive HTN and slowly add back his home medications. His blood pressure was still running high so his home amlodipine was increased from 5 to 10 mg and he was started on Lisinopril 10mg. He was continued on Plavix and his statin. He was monitored on Tele. He was evaluated and cleared by PT/OT. MRI of the brain and MRA of head and neck were performed which showed moderate subacute right occipital temporal infarct with cortical parenchymal enhancement, minimal residual diffusion restriction, tiny cortical infarct with in the right parietal region just subacute, occlusion of the entire right internal carotid artery, occlusion of the left anterior cerebral artery, moderate focal stenosis. The distal right vertebral artery, mild small vessel ischemic changes, mild atheromatous narrowing within the proximal left internal carotid artery. Dr. Gauthier of neurology was consulted and evaluated the patient. She recommended continue medical management. She noted that he may be a candidate for revascularization but he has to fail medical management first and the patient has a history of medication non compliance. Over the course his stay, his symptoms significantly improved. At presentation he was also found to have a MEETA, he was given IVF, and his kidney function improved back to baseline. By day of discharge, patient reports he was feeling much better and was ready to go home. Disposition: Home Discharge Condition: vitals stable, tolerating oral diet, ambulating without difficulty, symptoms improved Discharge Instructions: usual diet as tolerated, activity as tolerated, take medications as prescribed. Symptoms to report to provider include fever/chills , chest pain ,shortness of breath, abdominal pain, nausea/vomiting, draining/ discharge, erythema, facial droop, slurred speech, weakness in the extremities. Discharge Medications: Clopidogrel [Plavix] 75 mg PO DAILY Lisinopril [Prinivil] 10 mg PO DAILY Metoprolol Tartrate 25 mg PO BID amLODIPine Besylate [Norvasc] 10 mg PO DAILY atorvaSTATin [Lipitor] 80 mg PO BEDTIME Follow-up: 1. PCP- Dr. Werner 2. Neurology- Dr. Gauthier - Discharge Data Discharge Date: 01/01/19 Discharge Disposition: Home, Self-Care 01 Condition: Stable - Patient Summary/Data Consults: Consultations 12/28/18 16:46 OT Evaluation and Treatment [CONS] Routine PT Evaluation and Treatment [CONS] Routine 12/31/18 14:26 Consult to Physician [CONS] Routine - Discharge Plan Prescriptions/Med Rec: amLODIPine Besylate [Norvasc] 10 mg PO DAILY 30 Days #30 tablet atorvaSTATin [Lipitor] 80 mg PO BEDTIME 30 Days #30 tablet Clopidogrel [Plavix] 75 mg PO DAILY 30 Days #30 tablet Lisinopril [Prinivil] 10 mg PO DAILY 30 Days #30 tablet Metoprolol Tartrate 25 mg PO BID #30 tablet Home Medications: Home Meds Clopidogrel [Plavix] 75 mg PO DAILY 30 Days #30 tablet 01/01/19 [Rx] Lisinopril [Prinivil] 10 mg PO DAILY 30 Days #30 tablet 01/01/19 [Rx] Metoprolol Tartrate 25 mg PO BID #30 tablet 01/01/19 [Rx] amLODIPine Besylate [Norvasc] 10 mg PO DAILY 30 Days #30 tablet 01/01/19 [Rx] atorvaSTATin [Lipitor] 80 mg PO BEDTIME 30 Days #30 tablet 01/01/19 [Rx] Patient Handouts: Metoprolol tablets, Ischemic Stroke, [id number], Clopidogrel tablets, Atorvastatin tablets, Lisinopril tablets, Amlodipine tablets Referrals: [facility] [Outside] Chelsea Gauthier MD [Physician] - 02/12/19 4:30 pm Cristobal Werner MD [Physician] - 01/10/19 8:30 am - Discharge Summary/Plan Comment DC Time >30 min.: No - Patient Data Vitals - Most Recent: Last Vital Signs Temp 97.3 F 01/01/19 07:49 Pulse 62 01/01/19 08:26 Resp 16 01/01/19 07:49 BP 173/82 H 01/01/19 10:58 Pulse Ox 96 01/01/19 07:49 Weight - Most Recent: 80.9 kg I&O - Last 24 hours: Intake & Output 12/31/18 01/01/19 01/01/19 22:59 06:59 14:59 Intake Total 200 640 Balance 200 640 Lab Results - Last 24 hrs: Laboratory Results - last 24 hr 01/01/19 01/01/19 Range/Units 05:50 05:50 WBC 8.93 (4.0-11.0) K/uL RBC 4.63 (4.50-5.90) M/uL Hgb 13.7 (13.0-17.0) g/dL Hct 40.7 (38.0-50.0) % MCV 87.9 (80.0-98.0) fL MCH 29.6 (27.0-32.0) pg MCHC 33.7 (31.0-37.0) g/dL RDW Std Deviation 44.8 (28.0-62.0) fl RDW Coeff of [place]ubia 14 (11.0-15.0) % Plt Count 214 (150-400) K/uL MPV 10.60 (7.40-12.00) fL Neut % (Auto) 57.3 (48.0-80.0) % Lymph % (Auto) 26.4 (16.0-40.0) % [place] % (Auto) 8.5 (0.0-15.0) % Eos % (Auto) 6.7 (0.0-7.0) % Baso % (Auto) 1.1 (0.0-1.5) % Neut # (Auto) 5.1 (1.4-5.7) K/uL Lymph # (Auto) 2.4 (0.6-2.4) K/uL [place] # (Auto) 0.8 (0.0-0.8) K/uL Eos # (Auto) 0.6 (0.0-0.7) K/uL Baso # (Auto) 0.1 (0.0-0.1) K/uL Nucleated RBC % 0.0 /100WBC Nucleated RBCs # 0 K/uL Sodium 142 (136-148) mmol/L Potassium 4.1 (3.5-5.1) mmol/L Chloride 108 H (98-107) mmol/L Carbon Dioxide 23.5 (21.0-32.0) mmol/L BUN 29 H (7.0-18.0) mg/dL Creatinine 1.4 H (0.8-1.3) mg/dL Est Cr Clr Drug Dosing 55.22 mL/min Estimated GFR (MDRD) 51.5 ml/min Glucose 109 H (74-106) mg/dL Calcium 9.2 (8.5-10.1) mg/dL Med Orders - Current: Current Medications Amlodipine Besylate (Norvasc) 10 mg PO DAILY [facility] Last Admin: 01/01/19 08:27 Dose: 10 mg Atorvastatin Calcium (Lipitor) 80 mg PO BEDTIME [facility] Last Admin: 12/31/18 20:44 Dose: 80 mg Clopidogrel Bisulfate (Plavix) 75 mg PO DAILY [facility] Last Admin: 01/01/19 08:28 Dose: 75 mg Lisinopril (Prinivil) 10 mg PO DAILY [facility] Last Admin: 01/01/19 10:58 Dose: 10 mg Metoprolol Tartrate (Lopressor) 25 mg PO BID [facility] Last Admin: 01/01/19 08:26 Dose: 25 mg Sodium Chloride (Saline Flush) 10 ml FLUSH ASDIRECTED PRN PRN Reason: Keep Vein Open Last Admin: 12/29/18 20:33 Dose: 10 ml Sodium Chloride (Saline Flush) 2.5 ml FLUSH ASDIRECTED PRN PRN Reason: Keep Vein Open Sodium Chloride (Normal Saline) 10 ml IV ASDIRECTED PRN PRN Reason: IV Use Discontinued Medications Amlodipine Besylate (Norvasc) 5 mg PO DAILY [facility] Last Admin: 12/31/18 08:23 Dose: 5 mg Amlodipine Besylate (Norvasc) 5 mg PO ONETIME ONE Stop: 12/31/18 09:50 Last Admin: 12/31/18 12:58 Dose: 5 mg Amlodipine Besylate (Norvasc) Confirm Administered Dose 5 mg .ROUTE .STK-MED ONE Stop: 12/31/18 12:56 Last Admin: 12/31/18 14:23 Dose: Not Given Aspirin (Aspirin) 325 mg PO ONETIME ONE Stop: 12/28/18 18:07 Last Admin: 12/28/18 18:50 Dose: 325 mg Diphenhydramine HCl (Benadryl) 25 mg PO ONETIME ONE Stop: 12/30/18 22:09 Last Admin: 12/30/18 22:12 Dose: 25 mg Gadobenate Dimeglumine (Multihance) 20 ml IVPUSH ONETIME STA Stop: 12/31/18 10:08 Last Admin: 12/31/18 10:12 Dose: 13 ml Labetalol HCl (Normodyne) 20 mg IVPUSH NOW ONE; Protocol Stop: 12/28/18 16:14 Last Admin: 12/28/18 16:31 Dose: Not Given Labetalol HCl (Normodyne) 20 mg IVPUSH Q4H PRN; Protocol PRN Reason: Hypertension Last Admin: 01/01/19 05:16 Dose: 20 mg Potassium Chloride (Klor-Con M20) 40 meq PO ONETIME ONE Stop: 12/29/18 07:13 Last Admin: 12/29/18 08:26 Dose: 40 meq <Ricky Douglas J - Last Filed: 01/01/19 19:12> Discharge Summary - Patient Summary/Data Consults: Consultations 12/28/18 16:46 OT Evaluation and Treatment [CONS] Routine PT Evaluation and Treatment [CONS] Routine 12/31/18 14:26 Consult to Physician [CONS] Routine - Patient Data Vitals - Most Recent: Last Vital Signs Temp 36.3 C 01/01/19 07:49 Pulse 62 01/01/19 08:26 Resp 16 01/01/19 07:49 BP 173/82 H 01/01/19 10:58 Pulse Ox 96 01/01/19 07:49 I&O - Last 24 hours: Intake & Output 01/01/19 01/01/19 01/01/19 06:59 14:59 22:59 Intake Total 640 Balance 640 Lab Results - Last 24 hrs: Laboratory Results - last 24 hr 01/01/19 01/01/19 Range/Units 05:50 05:50 WBC 8.93 (4.0-11.0) K/uL RBC 4.63 (4.50-5.90) M/uL Hgb 13.7 (13.0-17.0) g/dL Hct 40.7 (38.0-50.0) % MCV 87.9 (80.0-98.0) fL MCH 29.6 (27.0-32.0) pg MCHC 33.7 (31.0-37.0) g/dL RDW Std Deviation 44.8 (28.0-62.0) fl RDW Coeff of [place]ubia 14 (11.0-15.0) % Plt Count 214 (150-400) K/uL MPV 10.60 (7.40-12.00) fL Neut % (Auto) 57.3 (48.0-80.0) % Lymph % (Auto) 26.4 (16.0-40.0) % [place] % (Auto) 8.5 (0.0-15.0) % Eos % (Auto) 6.7 (0.0-7.0) % Baso % (Auto) 1.1 (0.0-1.5) % Neut # (Auto) 5.1 (1.4-5.7) K/uL Lymph # (Auto) 2.4 (0.6-2.4) K/uL [place] # (Auto) 0.8 (0.0-0.8) K/uL Eos # (Auto) 0.6 (0.0-0.7) K/uL Baso # (Auto) 0.1 (0.0-0.1) K/uL Nucleated RBC % 0.0 /100WBC Nucleated RBCs # 0 K/uL Sodium 142 (136-148) mmol/L Potassium 4.1 (3.5-5.1) mmol/L Chloride 108 H (98-107) mmol/L Carbon Dioxide 23.5 (21.0-32.0) mmol/L BUN 29 H (7.0-18.0) mg/dL Creatinine 1.4 H (0.8-1.3) mg/dL Est Cr Clr Drug Dosing 55.22 mL/min Estimated GFR (MDRD) 51.5 ml/min Glucose 109 H (74-106) mg/dL Calcium 9.2 (8.5-10.1) mg/dL Med Orders - Current: Current Medications Discontinued Medications Amlodipine Besylate (Norvasc) 5 mg PO DAILY [facility] Last Admin: 12/31/18 08:23 Dose: 5 mg Amlodipine Besylate (Norvasc) 5 mg PO ONETIME ONE Stop: 12/31/18 09:50 Last Admin: 12/31/18 12:58 Dose: 5 mg Amlodipine Besylate (Norvasc) 10 mg PO DAILY [facility] Last Admin: 01/01/19 08:27 Dose: 10 mg Amlodipine Besylate (Norvasc) Confirm Administered Dose 5 mg .ROUTE .STK-MED ONE Stop: 12/31/18 12:56 Last Admin: 12/31/18 14:23 Dose: Not Given Aspirin (Aspirin) 325 mg PO ONETIME ONE Stop: 12/28/18 18:07 Last Admin: 12/28/18 18:50 Dose: 325 mg Atorvastatin Calcium (Lipitor) 80 mg PO BEDTIME [facility] Last Admin: 12/31/18 20:44 Dose: 80 mg Clopidogrel Bisulfate (Plavix) 75 mg PO DAILY [facility] Last Admin: 01/01/19 08:28 Dose: 75 mg Diphenhydramine HCl (Benadryl) 25 mg PO ONETIME ONE Stop: 12/30/18 22:09 Last Admin: 12/30/18 22:12 Dose: 25 mg Gadobenate Dimeglumine (Multihance) 20 ml IVPUSH ONETIME STA Stop: 12/31/18 10:08 Last Admin: 12/31/18 10:12 Dose: 13 ml Labetalol HCl (Normodyne) 20 mg IVPUSH NOW ONE; Protocol Stop: 12/28/18 16:14 Last Admin: 12/28/18 16:31 Dose: Not Given Labetalol HCl (Normodyne) 20 mg IVPUSH Q4H PRN; Protocol PRN Reason: Hypertension Last Admin: 01/01/19 05:16 Dose: 20 mg Lisinopril (Prinivil) 10 mg PO DAILY [facility] Last Admin: 01/01/19 10:58 Dose: 10 mg Metoprolol Tartrate (Lopressor) 25 mg PO BID [facility] Last Admin: 01/01/19 08:26 Dose: 25 mg Potassium Chloride (Klor-Con M20) 40 meq PO ONETIME ONE Stop: 12/29/18 07:13 Last Admin: 12/29/18 08:26 Dose: 40 meq Sodium Chloride (Saline Flush) 10 ml FLUSH ASDIRECTED PRN PRN Reason: Keep Vein Open Last Admin: 12/29/18 20:33 Dose: 10 ml Sodium Chloride (Saline Flush) 2.5 ml FLUSH ASDIRECTED PRN PRN Reason: Keep Vein Open Sodium Chloride (Normal Saline) 10 ml IV ASDIRECTED PRN PRN Reason: IV Use - Free Text/Narrative Note: I have seen and evaluated the patient. I have discussed findings and treatment plan with the resident. I agree with the assessment and plan outlined in the following note.
== END 2019-01-01 13:05 | disposition home or self-care (01) | DRG 65 ==
LOC: MW.ED 15:35 → MW.ICU 16:52 → MW.MS 12-31 13:50
PROVIDERS: ADMIT Internal Medicine; ATTEND Internal Medicine
DX: I63.9 Cerebral infarction, unspecified (principal); N17.9 Acute kidney failure, unspecified; H34.9 Unspecified retinal vascular occlusion; R20.0 Anesthesia of skin; R47.81 Slurred speech; R29.810 Facial weakness; F17.200 Nicotine dependence, unspecified, uncomplicated; R29.703 NIHSS score 3; E87.6 Hypokalemia; I10 Essential (primary) hypertension; F17.210 Nicotine dependence, cigarettes, uncomplicated; H54.7 Unspecified visual loss; I25.2 Old myocardial infarction; Z86.73 Personal history of transient ischemic attack (TIA), and cerebral infarction without residual deficits; R51 Headache; Z88.1 Allergy status to other antibiotic agents; Z88.2 Allergy status to sulfonamides; Z91.048 Other nonmedicinal substance allergy status; Z79.899 Other long term (current) drug therapy; Z79.02 Long term (current) use of antithrombotics/antiplatelets
CPT/HCPCS: 36415; 70450; 70450-26; 70544; 70544-26; 70549; 70549-26; 70553; 70553-26; 80048; 80053; 81001; 84443; 84484; 85025; 85610; 85730; 93005; 93880; 93880-26; 97110-GO; 97161-GP; 97165-GO; 97530-GP; 99285-25; A9270-GY; A9577; J3490

== ENCOUNTER 2019-05-11 01:29 | Emergency (ER) | payer MEDICAID ==
--- NOTE | 2019-05-11 01:49 | EDM.PDOC ---
ED HPI GENERAL MEDICAL PROBLEM - General Chief Complaint: Abdominal Pain Stated Complaint: RIGHT ABDOMINAL PAIN RADIATING TO BACK Time Seen by Provider: 05/11/19 01:46 - History of Present Illness INITIAL COMMENTS - FREE TEXT/NARRATIVE: HISTORY AND PHYSICAL: History of present illness: Patient 64-year-old white male presents with a concern of right-sided abdominal pain he states this started this morning is been without associated nausea vomiting diarrhea he's had no trauma he denies fever chills chest pain or shortness of breath Review of systems: As per history of present illness and below otherwise all systems reviewed and negative. Past medical history: As per history of present illness and as reviewed below otherwise noncontributory. Surgical history: As per history of present illness and as reviewed below otherwise noncontributory. Social history: No reported history of drug or alcohol abuse. Family history: As per history of present illness and as reviewed below otherwise noncontributory. Physical exam: HEENT: Atraumatic, normocephalic, pupils reactive, negative for conjunctival pallor or scleral icterus, mucous membranes moist, throat clear, neck supple, nontender, trachea midline. Lungs: Clear to auscultation, breath sounds equal bilaterally, chest nontender. Heart: S1S2, regular, negative for clicks, rubs, or JVD. Abdomen: Soft, protuberant with right-sided nonlocalized tenderness Negative for masses or hepatosplenomegaly. Negative for costovertebral tenderness. Pelvis: Stable nontender. Genitourinary: Deferred. Rectal: Deferred. Extremities: Atraumatic, negative for cords or calf pain. Neurovascular unremarkable. Neuro: Awake, alert, oriented. Cranial nerves II through XII unremarkable. Cerebellum unremarkable. Motor and sensory unremarkable throughout. Exam nonfocal. Diagnostics: CBC CMP troponin PT/INR chest x-ray CT abdomen and pelvis EKG Therapeutics: Saline at 125 mL an hour Impression: #1 abdominal pain Definitive disposition and diagnosis as appropriate pending reevaluation and review of above. Abdomen Pain Score (Numeric/FACES): 8 - Related Data Allergies Allergy/AdvReac Type Severity Reaction Status Date / Time Sulfa (Sulfonamide Allergy Severe Anaphylactic Verified 05/11/19 01:37 Antibiotics) Shock amoxicillin Allergy Mild Hives Verified 05/11/19 01:37 coconut oil Allergy Mild Rash Verified 05/11/19 01:37 Home Meds: Home Meds Clopidogrel [Plavix] 75 mg PO DAILY 30 Days #30 tablet 01/01/19 [Rx] Lisinopril [Prinivil] 10 mg PO DAILY 30 Days #30 tablet 01/01/19 [Rx] Metoprolol Tartrate 25 mg PO BID #30 tablet 01/01/19 [Rx] amLODIPine Besylate [Norvasc] 10 mg PO DAILY 30 Days #30 tablet 01/01/19 [Rx] atorvaSTATin [Lipitor] 80 mg PO BEDTIME 30 Days #30 tablet 01/01/19 [Rx] Past Medical History - Past Health History Medical/Surgical History: Denies Medical/Surgical History HEENT History: Reports: Impaired Vision, Other (See Below) 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 Cardiovascular History: Reports: Hypertension, NV Other Cardiovascular History: NV 2012 Respiratory History: Reports: Other (See Below) Other Respiratory History: chronic smoker Gastrointestinal History: Reports: None Genitourinary History: Reports: None Musculoskeletal History: Reports: None Neurological History: Reports: CVA, Headaches, Chronic, TIA Other Neuro History: CVA 2016 Psychiatric History: Reports: Other (See Below) Other Psychiatric History: Impaired decision making, less able to care for himself after CVA. Endocrine/Metabolic History: Reports: None Hematologic History: Reports: None Immunologic History: Reports: None Oncologic (Cancer) History: Reports: None Dermatologic History: Reports: None - Infectious Disease History Infectious Disease History: Reports: None - Past Surgical History Head Surgeries/Procedures: Reports: None HEENT Surgical History: Reports: None Respiratory Surgical History: Reports: None GI Surgical History: Reports: Hernia, Inguinal Male Surgical History: Reports: None Endocrine Surgical History: Reports: None Neurological Surgical History: Reports: None Musculoskeletal Surgical History: Reports: None Social & Family History - Family History Family Medical History: Noncontributory - Tobacco Use Smoking Status *Q: Current Every Day Smoker Years of Tobacco use: 25 Packs/Tins Daily: 0.5 - Caffeine Use Caffeine Use: Reports: Coffee, Soda Other Caffeine Use: diet pepsi Caffeine Use Comment: 3 cups daily - Recreational Drug Use Recreational Drug Use: No ED ROS GENERAL - Review of Systems Review Of Systems: ROS reveals no pertinent complaints other than HPI. ED EXAM, GENERAL - Physical Exam Exam: See Below (The dictation) Course - Vital Signs Text/Narrative:: Patient's emergency department course is been unremarkable he is without pain in eager for discharge. Last Recorded V/S: Last Vital Signs Temp 36.1 C 05/11/19 01:30 Pulse 73 05/11/19 01:30 Resp 18 05/11/19 01:30 BP 160/93 H 05/11/19 01:30 Pulse Ox 96 05/11/19 01:30 - Orders/Labs/Meds Orders: Active Orders 24 hr Category Date Time Status EKG Documentation Completion [RC] STAT Care 05/11/19 01:51 Active Labs: Laboratory Tests 05/11/19 05/11/19 05/11/19 Range/Units 01:40 01:45 01:45 WBC 11.59 H (4.0-11.0) K/uL RBC 4.38 L (4.50-5.90) M/uL Hgb 13.6 (13.0-17.0) g/dL Hct 39.2 (38.0-50.0) % MCV 89.5 (80.0-98.0) fL MCH 31.1 (27.0-32.0) pg MCHC 34.7 (31.0-37.0) g/dL RDW Std Deviation 46.1 (28.0-62.0) fl RDW Coeff of Nubia 14 (11.0-15.0) % Plt Count 264 (150-400) K/uL MPV 10.50 (7.40-12.00) fL Neut % (Auto) 56.0 (48.0-80.0) % Lymph % (Auto) 27.3 (16.0-40.0) % [place] % (Auto) 7.9 (0.0-15.0) % Eos % (Auto) 7.5 H (0.0-7.0) % Baso % (Auto) 1.3 (0.0-1.5) % Neut # (Auto) 6.5 H (1.4-5.7) K/uL Lymph # (Auto) 3.2 H (0.6-2.4) K/uL [place] # (Auto) 0.9 H (0.0-0.8) K/uL Eos # (Auto) 0.9 H (0.0-0.7) K/uL Baso # (Auto) 0.2 H (0.0-0.1) K/uL Nucleated RBC % 0.0 /100WBC Nucleated RBCs # 0 K/uL INR 0.97 Sodium (136-148) mmol/L Potassium (3.5-5.1) mmol/L Chloride (98-107) mmol/L Carbon Dioxide (21.0-32.0) mmol/L BUN (7.0-18.0) mg/dL Creatinine (0.8-1.3) mg/dL Est Cr Clr Drug Dosing Estimated GFR (MDRD) ml/min Glucose (74-106) mg/dL Calcium (8.5-10.1) mg/dL Total Bilirubin (0.2-1.0) mg/dL AST (15-37) IU/L ALT (14-63) IU/L Alkaline Phosphatase (46-116) U/L Troponin I (0.000-0.056) ng/mL Total Protein (6.4-8.2) g/dL Albumin (3.4-5.0) g/dL Globulin (2.6-4.0) g/dL Albumin/Globulin Ratio (0.9-1.6) Urine Color YELLOW Urine Appearance CLEAR Urine pH 6.0 (5.0-8.0) Ur Specific [place] 1.015 (1.001-1.035) Urine Protein NEGATIVE (NEGATIVE) mg/dL Urine Glucose (UA) NEGATIVE (NEGATIVE) mg/dL Urine Ketones NEGATIVE (NEGATIVE) mg/dL Urine Occult Blood NEGATIVE (NEGATIVE) Urine Nitrite NEGATIVE (NEGATIVE) Urine Bilirubin NEGATIVE (NEGATIVE) Urine Urobilinogen 0.2 (<2.0) EU/dL Ur Leukocyte Esterase NEGATIVE (NEGATIVE) Urine RBC 0-1 (0-2/HPF) Urine WBC 0-1 (0-5/HPF) Ur Epithelial Cells RARE (NONE-FEW) Urine Bacteria RARE (NEGATIVE) 05/11/19 Range/Units 01:45 WBC (4.0-11.0) K/uL RBC (4.50-5.90) M/uL Hgb (13.0-17.0) g/dL Hct (38.0-50.0) % MCV (80.0-98.0) fL MCH (27.0-32.0) pg MCHC (31.0-37.0) g/dL RDW Std Deviation (28.0-62.0) fl RDW Coeff of Nubia (11.0-15.0) % Plt Count (150-400) K/uL MPV (7.40-12.00) fL Neut % (Auto) (48.0-80.0) % Lymph % (Auto) (16.0-40.0) % [place] % (Auto) (0.0-15.0) % Eos % (Auto) (0.0-7.0) % Baso % (Auto) (0.0-1.5) % Neut # (Auto) (1.4-5.7) K/uL Lymph # (Auto) (0.6-2.4) K/uL [place] # (Auto) (0.0-0.8) K/uL Eos # (Auto) (0.0-0.7) K/uL Baso # (Auto) (0.0-0.1) K/uL Nucleated RBC % /100WBC Nucleated RBCs # K/uL INR Sodium 142 (136-148) mmol/L Potassium 4.0 (3.5-5.1) mmol/L Chloride 106 (98-107) mmol/L Carbon Dioxide 26.2 (21.0-32.0) mmol/L BUN 33 H (7.0-18.0) mg/dL Creatinine 1.6 H (0.8-1.3) mg/dL Est Cr Clr Drug Dosing TNP Estimated GFR (MDRD) 44.0 ml/min Glucose 119 H (74-106) mg/dL Calcium 9.2 (8.5-10.1) mg/dL Total Bilirubin 0.3 (0.2-1.0) mg/dL AST 20 (15-37) IU/L ALT 35 (14-63) IU/L Alkaline Phosphatase 136 H (46-116) U/L Troponin I < 0.050 (0.000-0.056) ng/mL Total Protein 7.0 (6.4-8.2) g/dL Albumin 3.4 (3.4-5.0) g/dL Globulin 3.6 (2.6-4.0) g/dL Albumin/Globulin Ratio 0.9 (0.9-1.6) Urine Color Urine Appearance Urine pH (5.0-8.0) Ur Specific [place] (1.001-1.035) Urine Protein (NEGATIVE) mg/dL Urine Glucose (UA) (NEGATIVE) mg/dL Urine Ketones (NEGATIVE) mg/dL Urine Occult Blood (NEGATIVE) Urine Nitrite (NEGATIVE) Urine Bilirubin (NEGATIVE) Urine Urobilinogen (<2.0) EU/dL Ur Leukocyte Esterase (NEGATIVE) Urine RBC (0-2/HPF) Urine WBC (0-5/HPF) Ur Epithelial Cells (NONE-FEW) Urine Bacteria (NEGATIVE) Departure - Departure Time of Disposition: 03:09 Disposition: Home, Self-Care 01 Condition: Good Clinical Impression: Abdominal pain - Discharge Information Referrals: Cristobal Werner MD [Primary Care Provider] - Forms: ED Department Discharge Additional Instructions: The following information is given to patients seen in the emergency department who are being discharged to home. This information is to outline your options for follow-up care. We provide all patients seen in our emergency department with a follow-up referral. The need for follow-up, as well as the timing and circumstances, are variable depending upon the specifics of your emergency department visit. If you don't have a primary care physician on staff, we will provide you with a referral. We always advise you to contact your personal physician following an emergency department visit to inform them of the circumstance of the visit and for follow-up with them and/or the need for any referrals to a consulting specialist. The emergency department will also refer you to a specialist when appropriate. This referral assures that you have the opportunity for followup care with a specialist. All of these measure are taken in an effort to provide you with optimal care, which includes your followup. Under all circumstances we always encourage you to contact your private physician who remains a resource for coordinating your care. When calling for followup care, please make the office aware that this follow-up is from your recent emergency room visit. If for any reason you are refused follow-up, please contact the [facility] emergency department at and asked to speak to the emergency department charge nurse. Follow-up primary medical doctor as needed as discussed return as needed as discussed - My Orders Last 24 Hours: My Active Orders 05/11/19 01:51 EKG Documentation Completion [RC] STAT - Assessment/Plan Last 24 Hours: My Active Orders 05/11/19 01:51 EKG Documentation Completion [RC] STAT
[2019-05-11 02:24] LABS: CHLORIDE,CL 106 mmol/L (98-107); SODIUM,NA 142 mmol/L (136-148)
--- NOTE | 2019-05-11 02:51 | CR ---
INDICATION: chest/abdominal pain. CHEST, ONE VIEW An AP radiograph of the chest was performed. Comparison: 07/10/2018. The lungs appear clear and no pleural effusions are identified. The cardiomediastinal silhouette and pulmonary vasculature appear normal, as do the visualized bones. IMPRESSION: No acute intrathoracic abnormality identified. YONATAN FIGUEROA MD [employer] [employer] Dictated by: Chinedu Figueroa MD @ 05/11/2019 02:49:53 (Electronically Signed)
--- NOTE | 2019-05-11 03:02 | CT ---
INDICATION: Chest/abdominal pain. CT ABDOMEN AND PELVIS WITHOUT CONTRAST TECHNIQUE: Multidetector CT imaging was performed through the abdomen and pelvis without intravenous contrast administration. Coronal and sagittal reconstructions were generated. COMPARISON: None. FINDINGS: Lower chest: Minimal left basilar scarring or atelectasis. Liver: Within normal limits. Gallbladder and bile ducts: Partially contracted gallbladder. No gallbladder wall thickening or calcified gallstones. No biliary dilation identified. Pancreas: Unremarkable. Spleen: Normal. Adrenals: No nodules or masses. Kidneys, ureters, and urinary bladder: Subtly outlined 8.5 x 6.5 x 6.5 centimeter collection of fat in the perinephric space inferior to the right kidney, containing central hazy density; fat necrosis and fat-containing tumor are possible considerations. A 3 centimeter left renal cyst. No urinary tract stones or hydronephrosis. Mild diffuse wall thickening of the urinary bladder. Gastrointestinal tract: Normal caliber bowel without wall thickening. The appendix is normal. Vascular structures: Moderate aortoiliac atherosclerotic calcifications. Peritoneum: No free air, abscess, or significant free fluid. Lymph nodes: No pathologically enlarged nodes identified. Reproductive organs: Moderate prostatomegaly. Bones: Spinal degenerative changes. IMPRESSION: 1. 8.5 x 6.5 x 6.5 centimeter fatty collection in the inferior right perinephric space containing central hazy density. Fat necrosis is possible. Alternatively, this could represent a fatty tumor such is a lipoma or liposarcoma. MRI should be considered for further evaluation. 2. No urinary tract stones or hydronephrosis. 3. Normal appendix. 4. Nonacute additional findings as detailed above. YONATAN FIGUEROA MD [facility] Dictated by Chinedu Figueroa MD @ 05/11/2019 3:00:44 AM Dictated by: Chinedu Figueroa MD @ 05/11/2019 03:01:00 (Electronically Signed)
[2019-05-11 03:25] VITALS: BP 171/64
== END 2019-05-11 03:23 | disposition home or self-care (01) ==
LOC: MW.ED 01:29
DX: R10.84 Generalized abdominal pain (principal); I10 Essential (primary) hypertension; F17.210 Nicotine dependence, cigarettes, uncomplicated; I25.2 Old myocardial infarction; Z88.2 Allergy status to sulfonamides; Z88.1 Allergy status to other antibiotic agents; Z79.899 Other long term (current) drug therapy
CPT/HCPCS: 71045; 71045-26; 74176; 74176-26; 80053; 81001; 84484; 85025; 85610; 93005; 99284-25

== ENCOUNTER 2021-10-23 11:17 | Emergency (ER) | payer MEDICAID, SELFPAY ==
--- NOTE | 2021-10-23 11:23 | EDM.PDOC ---
ED HPI GENERAL MEDICAL PROBLEM - General Chief Complaint: Genitourinary Problem Stated Complaint: MEDICAL CLEARANCE Time Seen by Provider: 10/23/21 11:18 Source of Information: Reports: Patient History Limitations: Reports: No Limitations - History of Present Illness INITIAL COMMENTS - FREE TEXT/NARRATIVE: HISTORY AND PHYSICAL: History of present illness: Patient is a 66-year-old male who is brought to the emergency room by law enforcement for medical clearance. Patient states over a week ago he was at [facility] in [place] for frostbite to bilateral feet. He states he was not given anything for pain and has been having pain since discharge. He was instructed to follow-up with podiatry. He has not had any new or read exposure to cold temperatures since being cleared in [place]. Patient denies any fever, chills, headache, change in vision, syncope or near syncope. Denies any chest pain, back pain, shortness of breath or cough. Denies any GI or symptoms. Patient has been eating and drinking appropriately. Review of systems: As per history of present illness and below otherwise all systems reviewed and negative. Past medical history: As per history of present illness and as reviewed below otherwise noncontributory. Surgical history: As per history of present illness and as reviewed below otherwise noncontributory. Social history: See social history for further information Family history: As per history of present illness and as reviewed below otherwise noncontributory. Physical exam: General: Well developed and well nourished 66-year-old male. Alert and orientated x 3. Answering questions appropriately. Nontoxic in appearance and in no acute distress. Vital signs are stable and have been reviewed by me. Nursing notes were reviewed. Accompanied by law enforcement. HEENT: Atraumatic, normocephalic, pupils equal and reactive bilaterally, negative for conjunctival pallor or scleral icterus, mucous membranes moist, trachea midline. No drooling or trismus noted. No meningeal signs. No hot potato voice noted. Lungs: Clear to auscultation, breath sounds equal bilaterally. Normal work of breathing, no accessory muscles used. Heart: S1S2, regular rate and rhythm without overt murmur Abdomen: Soft, nondistended, nontender. Negative for masses or costovertebral tenderness. Skin: SEE NOTES for details of frostbite to lower extremities bilaterally. Otherwise remaining skin is intact, warm, dry. No lesions or rashes noted. Hematologic: No petechiae or purpra. Mucosa appropriate color and normal nail bed color and refill. Extremities: SEE NOTES. Ambulatory, moves all extremities per self without difficulty or deficits. Strong pedal and pretibial pulses bilaterally. Neurovascular unremarkable. Neuro: Awake, alert, oriented. Cranial nerves II through XII unremarkable. Cerebellum unremarkable. Motor and sensory unremarkable throughout. Exam nonfocal. Psychiatric: Mood and affect are appropriate. Normal thought process. Answering questions appropriately. Please note that the patient was seen and evaluated during the 2019 SARS-CoV-2 novel coronavirus pandemic period. Community viral transmission is ongoing at time of this encounter and the emergency department is operating under pandemic response procedures. Medical Decision Making: Law enforcement has no specific concerns for today's ER visit other than being told he had frostbite last week. Patient states he was at [facility] for frostbite and was seen by podiatry. He was cleared to have close follow-up with podiatry in the next few weeks. Upon removing the patient's socks he does have dressings to the great toe bilaterally. On right foot the toes #2 through 5 are blistered with purple discoloration from the base to tip. Skin at the base of those toes are pink, warm and dry. No concern for infection. There is a piece of skin that has been debrided from the right great toe below the base of the nail wrapping around the lateral aspect. When I pulled the dressing off the left great toe there was unhealthy skin that was hanging including the nail itself, the skin was degloved and hanging by a small piece of skin that will need to be removed. Toe #2 and 3 have blistering with purple discoloration circumferentially. Again the skin at the base of the toes are pink, warm and dry. No concern for infection. I was able to use a sterile scissor to trim the unhealthy skin away. I did get permission from the patient to take a picture to consult podiatry. I did consult Dr. Castanon, cooler conveyor loader at [facility]. He was able to review the picture and is agreeable that there is no concern for infection. He states that the patient will likely have discomfort but will take several weeks for healing and will have some sloughing of skin. Encouraged good wound management/care and following up with podiatry. Low enforcement states that they are going to [place] him and sent him home. We did do wound care while here with a nonstick dressing over the bilateral great toes. Was able to get alvaro care as the patient states he is unemployed and does not have any money at this time for short-term pain management. Patient was given strict instruct ions for wound care and follow-up signs and symptoms. He does have both our local cooler conveyor loader and [facility]'s information. I have talked with the patient and commercial lawn specialist about today's ER vi sit, in addition to providing specific details for plan of care. Reassessment at the time of disposition demonstrates that the patient is in no acute distress. The patient is stable for discharge, counseling was provided and we discussed in great detail signs and symptoms that would prompt them to return to the Emergency Department. Medication, follow up and supportive care measures were reviewed and discussed. Voices understanding and is agreeable to plan of care. Denies any further questions or concerns at this time. Diagnostics: Therapeutics: None Prescription: None Impression: Encounter for medical screening Frostbite Plan: 1. Today your vital signs are within normal limits. The unhealthy tissue was removed from the great toe. Continue to doing wound care at home with gentle cleansing twice daily. Continue to monitor for signs of infection. At this time it does not appear to be infected. You do need to follow-up with podiatry for further care and management. 2. Tylenol and/or ibuprofen as needed for pain management. Quenemo for moderate to severe pain. This medication may cause drowsiness so do not take it while driving or needing to be functioning outside of the house. This medication also contains Tylenol or acetaminophen so do not take any additional while on this medication. 3. If you should develop symptoms or feel the need to be evaluated in the emergency department - please feel free to return or call 911 if necessary. Definitive disposition and diagnosis as appropriate pending reevaluation and review of above. Bilateral Feet Pain Score (Numeric/FACES): 6 - Related Data Allergies Allergy/AdvReac Type Severity Reaction Status Date / Time Sulfa (Sulfonamide Allergy Severe Anaphylactic Verified 10/23/21 11:24 Antibiotics) Shock amoxicillin Allergy Mild Hives Verified 10/23/21 11:24 coconut oil Allergy Mild Rash Verified 10/23/21 11:24 Home Meds: Home Meds Clopidogrel [Plavix] 75 mg PO DAILY 30 Days #30 tablet 01/01/19 [Rx] Metoprolol Tartrate 25 mg PO BID #30 tablet 01/01/19 [Rx] amLODIPine Besylate [Norvasc] 10 mg PO DAILY 30 Days #30 tablet 01/01/19 [Rx] atorvaSTATin [Lipitor] 80 mg PO BEDTIME 30 Days #30 tablet 01/01/19 [Rx] lisinopriL [Prinivil] 10 mg PO DAILY 30 Days #30 tablet 01/01/19 [Rx] Past Medical History - Past Health History Medical/Surgical History: Denies Medical/Surgical History HEENT History: Reports: Impaired Vision, Other (See Below) 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 Cardiovascular History: Reports: Hypertension, GA Other Cardiovascular History: GA 2012 Respiratory History: Reports: Other (See Below) Other Respiratory History: chronic smoker Gastrointestinal History: Reports: None Genitourinary History: Reports: None Musculoskeletal History: Reports: None Neurological History: Reports: CVA, Headaches, Chronic, TIA Other Neuro History: CVA 2016 Psychiatric History: Reports: Other (See Below) Other Psychiatric History: Impaired decision making, less able to care for himself after CVA. Endocrine/Metabolic History: Reports: None Hematologic History: Reports: None Immunologic History: Reports: None Oncologic (Cancer) History: Reports: None Dermatologic History: Reports: None - Infectious Disease History Infectious Disease History: Reports: None - Past Surgical History Head Surgeries/Procedures: Reports: None HEENT Surgical History: Reports: None Respiratory Surgical History: Reports: None GI Surgical History: Reports: Hernia, Inguinal Male Surgical History: Reports: None Endocrine Surgical History: Reports: None Neurological Surgical History: Reports: None Musculoskeletal Surgical History: Reports: None Social & Family History - Family History Family Medical History: No Pertinent Family History - Caffeine Use Caffeine Use: Reports: Coffee, Soda Other Caffeine Use: diet pepsi Caffeine Use Comment: 3 cups daily ED ROS GENERAL - Review of Systems Review Of Systems: Comprehensive ROS is negative, except as noted in HPI. ED EXAM, GENERAL - Physical Exam Exam: See Below (See dictation) Course - Vital Signs Last Recorded V/S: Last Vital Signs Temp 98.5 F 10/23/21 11:25 Pulse 83 10/23/21 11:25 Resp 16 01/08/22 11:25 BP 174/83 H 10/23/21 11:25 Pulse Ox 97 10/23/21 11:25 Departure - Departure Time of Disposition: 12:15 Disposition: Home, Self-Care 01 Clinical Impression: Encounter for medical screening examination Frostbite of both feet Qualifiers: Encounter type: subsequent encounter Qualified Code(s): T33.821D - Superficial frostbite of right foot, subsequent encounter; T33.822D - Superficial frostbite of left foot, subsequent encounter - Discharge Information Instructions: Frostbite Referrals: PCP,None [Primary Care Provider] - Forms: ED Department Discharge Additional Instructions: The following information is given to patients seen in the emergency department who are being discharged to home. This information is to outline your options for follow-up care. We provide all patients seen in our emergency department with a follow-up referral. The need for follow-up, as well as the timing and circumstances, are variable depending upon the specifics of your emergency department visit. If you don't have a primary care physician on staff, we will provide you with a referral. We always advise you to contact your personal physician following an emergency department visit to inform them of the circumstance of the visit and for follow-up with them and/or the need for any referrals to a consulting specialist. The emergency department will also refer you to a specialist when appropriate. This referral assures that you have the opportunity for follow-up care with a specialist. All of these measure are taken in an effort to provide you with optimal care, which includes your follow-up. Under all circumstances we always encourage you to contact your private physician who remains a resource for coordinating your care. When calling for follow-up care, please make the office aware that this follow-up is from your recent emergency room visit. If for any reason you are refused follow-up, please contact the [facility] Emergency Department at and asked to speak to the emergency department charge nurse. Dr Merrick Lyles (podiatry) [address] [place] [address] Dr Catsanon (podiatry) [address], [place] [phone] Thank you for choosing the [facility] emergency department in [place] for your medical needs today. It was a pleasure caring for you. Today you were seen in the emergency department for medial clearance and frostbite pain. 1. Today your vital signs are within normal limits. The unhealthy tissue was removed from the great toe. Continue to doing wound care at home with gentle cleansing twice daily. Continue to monitor for signs of infection. At this time it does not appear to be infected. You do need to follow-up with podiatry for further care and management. 2. Tylenol and/or ibuprofen as needed for pain management. [place] for moderate t o severe pain. This medication may cause drowsiness so do not take it while driving or needing to be functioning outside of the house. This medication also contains Tylenol or acetaminophen so do not take any additional while on this medication. 3. If you should develop symptoms or feel the need to be evaluated in the emergency department - please feel free to return or call 911 if necessary. Sepsis Event Note (ED) - Focused Exam Vital Signs: Vital Signs Temp Pulse Resp BP Pulse Ox 10/23/21 11:25 98.5 F 83 16 174/83 H 97
[2021-10-23 11:28] VITALS: BP 174/83; PULSE 83
== END 2021-10-23 12:34 | disposition home or self-care (01) ==
LOC: MW.ED 11:17
DX: T33.822D Superficial frostbite of left foot, subsequent encounter (principal); T33.821D Superficial frostbite of right foot, subsequent encounter; I10 Essential (primary) hypertension; I25.2 Old myocardial infarction; Z86.73 Personal history of transient ischemic attack (TIA), and cerebral infarction without residual deficits; Z88.2 Allergy status to sulfonamides; Z88.0 Allergy status to penicillin; Z91.048 Other nonmedicinal substance allergy status; Z79.02 Long term (current) use of antithrombotics/antiplatelets; Z79.899 Other long term (current) drug therapy; X31.XXXA Exposure to excessive natural cold, initial encounter
CPT/HCPCS: 99283